=== PATIENT | male | born 1965 | race Two or more races ===

== ENCOUNTER 2023-07-09 10:14 | Emergency (ER) | payer MEDICAID, SELFPAY ==
[2023-07-09 10:20] VITALS: BP 137/72; PULSE 71; RESP 16; TEMP 36.8; O2SAT 98
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
[2023-07-09] MEDS: Ketorolac Tromethamine 15 MG/ML VIAL IM (11:32)
== END 2023-07-09 11:35 | disposition home or self-care (01) ==
PROVIDERS: Emergency Provider Emergency Medicine; PCP Physician Assistant
DX: R10.31 Right lower quadrant pain (principal); M79.602 Pain in left arm
CPT/HCPCS: 96372; 99283; 99284; J1885

== ENCOUNTER 2023-07-23 10:52 | Emergency (ER) | payer MEDICAID, SELFPAY ==
--- NOTE | ~2023-07-23 | CT_ITS ---
EXAMINATION: CT ABDOMEN AND PELVIS WITHOUT CONTRAST CLINICAL INFORMATION: Right-sided abdominal pain. COMPARISON: None available. TECHNIQUE: Multidetector volumetric imaging was performed from the superior aspect of the liver through the pubic symphysis. Sagittal and coronal reformatted images were obtained on the technologist's workstation. This CT examination was performed using dose optimization techniques as appropriate, variously including the following: *Automated exposure control *Adjustment of mA and/or kV according to patient size (this includes techniques or standardized protocols for targeted exams where dose is matched to indication/reason for exam; i.e. extremities or head) *Use of iterative reconstruction technique DLP: 237 mGy-cm FINDINGS: LUNG BASES: There is minimal dependent bibasilar atelectasis. Heart size is normal. LIVER, GALLBLADDER, AND BILIARY TREE: The liver is normal in size, shape, and attenuation. No focal hepatic lesion or biliary ductal dilatation is present. The gallbladder is unremarkable with no evidence of radiopaque gallstones, gallbladder wall thickening, or obvious pericholecystic inflammatory changes. PANCREAS: Unremarkable. SPLEEN: Unremarkable. ADRENAL GLANDS: Unremarkable. KIDNEYS AND URETERS: The kidneys are normal in size, shape, and attenuation. No hydronephrosis, hydroureter, or calculi seen. No perinephric stranding. BLADDER: Unremarkable. GASTROINTESTINAL TRACT: There is moderate scattered stool and gas seen throughout the colon without distention. The small bowel loops are normal caliber. Appendix is not visualized. There is no free air or free fluid. ABDOMINAL WALL: No significant hernia is appreciated. LYMPH NODES: Normal. VASCULAR: Unremarkable. PELVIC VISCERA: There is a small TURP defect in the prostate gland. OSSEOUS STRUCTURES: No aggressive lytic or sclerotic process seen. There is mild degenerative disc changes L4-L5 disc level. CT/CT abdomen pelvis wo IV con IMPRESSION: Significant constipation without obstruction. Appendix not seen. No inflammatory process seen in the right lower quadrant. No radiopaque urolith or hydroureteronephrosis. Fleischner guidelines were followed.
[2023-07-23 11:12] VITALS: BP 102/62; PULSE 63; RESP 18; TEMP 37.1; O2SAT 98
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
[2023-07-23 13:57] VITALS: BP 130/71; PULSE 58; RESP 16; TEMP 36.9; O2SAT 99
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
--- NOTE | 2023-07-23 14:58 | PC.NURSE ---
22g IV placed in the left hand w/o difficulty. pt awaiting CT at this time. respirations even and unlabored. call rockwell placed within reach.
--- NOTE | 2023-07-23 15:37 | PC.NURSE ---
CT went to pt room to get imaging completed - CT flushed IV w/ saline - pt stated that IV access was painful. no complications noted around site at this time. pt now currently agitated/yelling at this RN stating d/t being stuck/trying to obtain IV access.
--- NOTE | 2023-07-23 15:45 | PC.NURSE ---
provider aware that pt c/o painful IV ite at this time. provider will put in order for CT w/o contrast. pt aware of plan of care at this time.
== END 2023-07-23 16:56 | disposition home or self-care (01) ==
PROVIDERS: Emergency Provider Emergency Medicine; PCP Physician Assistant
DX: K59.00 Constipation, unspecified (principal); R10.31 Right lower quadrant pain; Z79.899 Other long term (current) drug therapy
CPT/HCPCS: 36415; 74176; 80048; 80076; 83690; 85025; 99284

== ENCOUNTER 2023-12-01 08:57 | Outpatient (REF) | payer MEDICAID, SELFPAY ==
[2023-12-01 10:58] LABS: Alanine Aminotransferase 56 U/L (0-40); Albumin Level 4.5 g/dL (3.5-5.0); Aspartate Amino Transferase 48 U/L (5-37); Bilirubin Total 0.5 mg/dL (0.0-1.0)
[2023-12-02 03:32] LABS: HBS Num1 0.17 mIU/mL (0-7.99); HBc Num1 1.07 S/CO (0.00-0.79); HBsAGNum1 0.53 S/CO (0.00-0.99); HIV AB/AG Nonreactive (Nonreactive); HIV Num 1 0.08 S/CO (0.00-0.99); Hepatitis B Surface Antigen Negative (Negative); ~HepC Num1 12.48 S/CO (0.00-0.79); ~Hepatitis B Surface Antibody NONREACTIVE (Nonreactive); ~Hepatitis C Antibody Reactive (Nonreactive)
[2023-12-02 04:20] LABS: HBc Num2 1.32 S/CO; HBc Num3 0.97 S/CO; Hepatitis B Core Antibody Reactive (Nonreactive)
[2023-12-03 19:23] LABS: Hepatitis B Core Antibody IgM NON-REACTIVE (NON-REACTIVE)
[2023-12-04 07:14] LABS: HCV RNA PCR Qn 177000 IU/mL (NOT DETECTED); HCV RNA PCR Qn 5.25 Log IU/mL (NOT DETECTED)
[2023-12-10 09:43] LABS: HCV Genotype LiPA 3
== END 2023-12-01 08:58 | disposition home or self-care (01) ==
LOC: HO.LAB 08:57
PROVIDERS: Visit Provider Internal Medicine Infectious Disease
DX: B18.2 Chronic viral hepatitis C (principal)
CPT/HCPCS: 36415; 82040; 82247; 84450; 84460; 86704; 86705; 86706; 86803; 87340; 87389; 87522; 87902

== ENCOUNTER 2024-02-25 13:44 | Inpatient (IN) | payer MEDICAID, SELFPAY ==
--- NOTE | ~2024-02-25 | XR_ITS ---
Examination: XR forearm RT 2V, XR hand RT min 3V Indication: pain Comparison: No pertinent prior studies are currently available for comparison. Technique: 2 views of the right forearm and 3 views of the right hand obtained Findings: Bones are normal anatomic alignment with no acute appearing fracture or dislocation. Old healed fracture of the distal ulna is noted. There is a tiny metallic foreign body in the soft tissues at this level. Additional small metallic needle fragments is seen in the soft tissues in the antecubital fossa region. No acute fracture or dislocation within the hand. There is diffuse soft tissue swelling along the dorsal aspect of the hand but underlying bony structures are grossly unremarkable. No radiopaque foreign body in the hand. XR/XR hand RT min 3V Impression: Soft tissue swelling along the dorsal aspect of the hand but no acute underlying fracture or dislocation. Old healed fracture of the distal ulna. Likely chronic foreign bodies seen
--- NOTE | ~2024-02-25 | XR_ITS ---
Examination: XR forearm RT 2V, XR hand RT min 3V Indication: pain Comparison: No pertinent prior studies are currently available for comparison. Technique: 2 views of the right forearm and 3 views of the right hand obtained Findings: Bones are normal anatomic alignment with no acute appearing fracture or dislocation. Old healed fracture of the distal ulna is noted. There is a tiny metallic foreign body in the soft tissues at this level. Additional small metallic needle fragments is seen in the soft tissues in the antecubital fossa region. No acute fracture or dislocation within the hand. There is diffuse soft tissue swelling along the dorsal aspect of the hand but underlying bony structures are grossly unremarkable. No radiopaque foreign body in the hand. XR/XR forearm RT 2V Impression: Soft tissue swelling along the dorsal aspect of the hand but no acute underlying fracture or dislocation. Old healed fracture of the distal ulna. Likely chronic foreign bodies seen
--- NOTE | 2024-02-25 13:57 | ED_ITS ---
HPI - General Adult General Chief complaint: Wound/Laceration Stated complaint: RT HAND ABSCESS X 1 MONTH, ON ABX PER EMS Time Seen by Provider: 02/25/24 13:56 History of Present Illness HPI narrative: This is a 58-year-old man with a past medical history of hypertension, polysubstance abuse (marijuane, injects cocaine), bipolar disorder who is brought in via EMS as a transfer from [facility] for evaluation right hand abscess. EMS states that patient has been admitted to the [facility] since February 18, 2024. EMS states that the patient has been calm and cooperative during the transfer. EMS states that patient is taking oral antibiotics for a right hand abscess, but states that his symptoms are not improving. EMS reports that patient expressed pus and blood from his abscess today and for this reason presents for evaluation. He states this swelling on his hand has been there for several weeks. He states no recent injection drug use. He states no fevers or chills. He states taking antibiotics by mouth at this time. He states no pain unless he presses on the area of swelling. He states pressing on it today and expressing pus . He states no paresthesias. He states no pain in his wrist, forearm or arm otherwise. He states no chest pain or dyspnea. He states no back pain or abdominal pain. Related Data Previous Rx's ?Medication ?Instructions ?Recorded polyethylene glycol 3350 17 17 g PO DAILY 7 days #119 grams 07/23/23 gram/dose oral powder (Miralax) Allergies Allergy/AdvReac Type Severity Reaction Status Date / Time lactose [LACTOSE] AdvReac Intermediate STOMACH Verified 02/25/24 14:02 UPSET Review of Systems 2 Review of Systems: ROS as per HPI PMFSH Past Medical History Medical History (Updated 02/25/24 @ 17:12 by Bhavya Razo MD) Hepatitis C Polysubstance abuse Opioid use disorder Bipolar disease, chronic PVD (peripheral vascular disease) HTN (hypertension) Injection of illicit drug within last 12 months PTSD (post-traumatic stress disorder) Social History Social History Substance Use Type: Marijuana Advance Directives: No Advance Directives Information Provided: No Physical Exam ED Vital Signs: Vital Signs - 24 hr 02/25/24 14:00 Temperature 98 F Pulse Rate 80 Respiratory Rate 19 Blood Pressure 119/80 Pulse Oximetry 98 Oxygen Delivery Method Room Air BMI result Body Mass Index 20.0 Gen: NAD, AOx3 HEENT: NCAT, EOMI, normal conjunctiva CV: RRR, 2+ bilateral radial pulses Pulm: CTAB, no increased work of breathing GI: Soft, NTND, no rebound, guarding or rigidity MSK: Bilateral upper extremity compartments are soft, scar tissue to anterior right forearm without associated erythema, purulence, fluctuance or induration, approximate 2 cm circular fluctuance with punctate red blood with associated mild erythema and without purulent drainage, no edema to the right hand digits, intact motor function to right upper extremity median/ulnar/radial/anterior interosseous nerves Neuro: Grossly non focal, sensation intact to bilateral upper extremity dermatomes and C6-C8 Medications Administered Discontinued Medications Generic Name Dose Route Start Last Admin Trade Name Freq PRN Reason Stop Dose Admin Clonazepam 0.5 mg 02/25/24 16:39 02/25/24 17:09 Clonazepam 0.5 Mg Tablet PO 02/25/24 16:40 0.5 mg ONCE ONE Administration Lactated Ringer's 1,000 mls @ 999 mls/hr 02/25/24 15:11 02/25/24 16:31 Lr IV 02/25/24 16:11 999 mls/hr .Q1H1M ONE Administration Cefazolin Sodium/Dextrose 2 gm in 50 mls @ 100 mls/hr 02/25/24 15:11 02/25/24 16:31 Ancef IV 02/25/24 15:40 100 mls/hr ONCE ONE Administration Doxycycline Hyclate 100 mg/ 250 mls @ 166.67 mls/hr 02/25/24 15:11 02/25/24 17:10 Sodium Chloride IV 02/25/24 16:40 166.67 mls/hr ONCE ONE Administration Lidocaine HCl 20 ml 02/25/24 15:54 02/25/24 17:22 Lidocaine Hcl 1 % 20 Ml Vial SUBCUT 02/25/24 15:55 20 ml ONCE ONE Administration Quetiapine Fumarate 25 mg 02/25/24 16:39 02/25/24 17:09 Quetiapine Fumarate 25 Mg Tablet PO 02/25/24 16:40 25 mg ONCE ONE Administration Procedures Abscess I/D Site: hand (posterior aspect) Side (if applicable): right Local Anesthetic: lidocaine 1% Amount of anesthesia used (mL): 2 Technique: incised with blade Amount of fluid expressed (mL): 2 Sent for culture/gram staining?: No Irrigation: Yes Packing used?: none Medical Decision Making Medical Decision Making [facility] Narrative: Differential diagnosis includes, but is not limited to abscess, foreign body, cellulitis. Considered paronychia, felon and flexor tendon synovitis, but there are no exam findings to suggest these etiologies and and so I do not suspect these pathologies. Patient is afebrile and hemodynamically stable on room air. Exam as above demonstrates findings concerning for abscess with mild superimposed cellulitis localized to area of abscess without streaking. The affected right upper extremity is neurovascularly intact. Labs notable for baseline anemia with hemoglobin 12.0 (previous 12.0 July 23, 2023), hyperkalemia with potassium of 5.2, elevated BUN 32 and creatinine 1.24 (previous 0.85). EKG shows sinus rhythm at 76 beats per minute, normal axis, normal intervals, CO 98, QRS 82, QTC 409 (when compared to previous EKG November 11, 2008 heart rate is decreased and there are no diagnostic ischemic changes). There are no electrocardiographic findings of hyperkalemia. Patient undergoes incision and drainage (see procedure note above for details) with minimal bloody drainage. This is dressed with nonadherent dressing and Kerlix. Given elevated BUN and creatinine increased greater than 0.3 when compared to previous I suspect prerenal acute kidney injury for which patient is provided 1 L IV LR. Patient is provided doxycycline and cefazolin for cellulitis not responding to p.o. antibiotics. I discussed case, management and diagnostic findings with Orthopedic surgery, Yarelis Topete, who recommends incision and drainage, admission to medicine and IV antibiotics. Patient is provided his home medications of clonazepam and Seroquel as per review of the external record from [facility]. I discussed case and management with hospitalist Dr. Andres. Patient is admitted to the hospitalist Dr. Andres with orthopedic surgery consulting. Admission/Observation Consideration of admission/observation: Escalation of care including admission/observation considered Consult Healthcare Provider Management of the patient was discussed with: Hospitalist and [employer] Lab Data 02/25/24 14:30 02/25/24 14:30 Labs: Lab Results 02/25/24 Range/Units 14:30 WBC 10.6 (4.8-10.8) X10*3/uL RBC 3.82 L (4.60-5.80) X10*6/uL Hgb 12.0 L (14.0-18.0) g/dl Hct 34.9 L (42.0-52.0) % MCV 91.4 (80.0-98.0) fL MCH 31.4 (27.0-33.0) pg MCHC 34.4 (31.0-36.0) g/dl RDW 14.2 (11.0-16.0) % Plt Count 257 (160-400) X10*3/uL MPV 10.4 (9.4-12.4) fL Immature Gran % (Auto) 0.3 (0.0-0.4) % Neut % (Auto) 70.9 (45-73) % Lymph % (Auto) 15.5 L (20-40) % Wheeler % (Auto) 11.5 H (2-11) % Eos % (Auto) 1.3 (0-4) % Baso % (Auto) 0.5 (0-2) % Lymph # (Auto) 1.6 (1.2-4.9) X10*3/uL Wheeler # (Auto) 1.2 (0.1-1.2) X10*3/uL Eos # (Auto) 0.1 (0.0-0.4) X10*3/uL Baso # (Auto) 0.1 (0.0-0.2) X10*3/uL Abs Immat Gran (auto) 0.03 (0.00-0.03) X10*3/uL Absolute Neuts (auto) 7.5 (2.0-8.3) x10*3/uL Absolute Nucleated RBC 0.000 (0.0-0.012) X10*3/uL Nucleated RBC % (auto) 0.0 (0.0-0.2) /100WBC Sodium 134 L (135-145) mmol/L Potassium 5.2 H (3.3-5.1) mmol/L Chloride 100 (96-108) mmol/L Carbon Dioxide 27 (22-29) mmol/L Anion Gap 12 (12-20) BUN 32 H (9-16) mg/dL Creatinine 1.24 (0.5-1.4) mg/dL Estim Creat Clear Calc 52.9 Estimated GFR > 60 Random Glucose 85 (60-115) mg/dL Calcium 9.1 (8.4-10.2) mg/dL Blood Type O Positive Antibody Screen NEGATIVE Radiology Impression Discussion of test interpretation with radiology: I have reviewed the radiologist's reading. Radiologist Impression: XR/XR forearm RT 2V Impression: Soft tissue swelling along the dorsal aspect of the hand but no acute underlying fracture or dislocation. Old healed fracture of the distal ulna. Likely chronic foreign bodies seen Dictated By: Jose Dubose MD Signed By: <Electronically signed by Jose Dubose MD in OV> 02/25/24 2278 XR/XR hand RT min 3V Impression: Soft tissue swelling along the dorsal aspect of the hand but no acute underlying fracture or dislocation. Old healed fracture of the distal ulna. Likely chronic foreign bodies seen Dictated By: Jose Dubose MD Signed By: <Electronically signed by Jose Dubose MD in OV> 02/25/24 0681 Discharge Plan Discharge Clinical Impression: Abscess Patient Disposition: Admitted As Inpatient
[2024-02-25 14:00] VITALS: BP 119/80; PULSE 80; RESP 19; TEMP 36.6; O2SAT 98
[2024-02-25 14:35] LABS: MANUAL DIFF FLAG NO
[2024-02-25 14:36] LABS: Basophils Absolute Auto 0.1 X10*3/uL (0.0-0.2); Basophils Percent Auto 0.5 % (0-2); Eosinophils Absolute Auto 0.1 X10*3/uL (0.0-0.4); Eosinophils Percent Auto 1.3 % (0-4); Hematocrit 34.9 % (42.0-52.0); Imm Gran Abs Auto 0.03 X10*3/uL (0.00-0.03); Imm Gran Pct Auto 0.3 % (0.0-0.4); Lymphocytes Absolute Auto 1.6 X10*3/uL (1.2-4.9); Lymphocytes Percent Auto 15.5 % (20-40); Mean Corpuscular HGB Conc 34.4 g/dl (31.0-36.0); Mean Corpuscular Hemoglobin 31.4 pg (27.0-33.0); Mean Corpuscular Volume 91.4 fL (80.0-98.0); Mean Platelet Volume 10.4 fL (9.4-12.4); Monocytes Absolute Auto 1.2 X10*3/uL (0.1-1.2); Monocytes Percent Auto 11.5 % (2-11); Neutrophils Absolute Auto 7.5 x10*3/uL (2.0-8.3); Neutrophils Percent Auto 70.9 % (45-73); Platelet Count 257 X10*3/uL (160-400); Red Blood Count 3.82 X10*6/uL (4.60-5.80); Red Cell Distribution Width 14.2 % (11.0-16.0); White Blood Count 10.6 X10*3/uL (4.8-10.8)
[2024-02-25 14:50] LABS: Anion Gap 12 (12-20); Blood Urea Nitrogen 32 mg/dL (9-16); Calcium 9.1 mg/dL (8.4-10.2); Carbon Dioxide 27 mmol/L (22-29); Chloride 100 mmol/L (96-108); Creatinine Clr Calc Pharmacy 52.9; Estimated Glomerular Filt Rate > 60; Glucose Random 85 mg/dL (60-115); Potassium 5.2 mmol/L (3.3-5.1); Sodium 134 mmol/L (135-145)
--- NOTE | 2024-02-25 15:11 | ECG_ITS ---
Test Reason : HYPERKALEMIA Blood Pressure : / mmHG Vent. Rate : 000 BPM Atrial Rate : 000 BPM P-R Int : 000 ms QRS Dur : 000 ms QT Int : 000 ms P-R-T Axes : 000 000 000 degrees QTc Int : 000 ms No QRS complexes found, no ECG analysis possible When compared with ECG of 11-NOV-2008 07:29, Current undetermined rhythm precludes rhythm comparison, needs review Referred By: Dimitrios Carranza Electronically Signed By:
--- NOTE | 2024-02-25 16:30 | PC.NURSE ---
pt denies si at this time sitter remains in place
[2024-02-25] MEDS: ceFAZolin Sodium/Dextrose,Iso 2 GM/50 ML PIGGYBACK IV (16:31)
[2024-02-25] MEDS: Lactated Ringers 1,000 ML 999 ML IV (16:31)
--- NOTE | 2024-02-25 17:00 | PC.NURSE ---
this rn assumed care of pt @ 1500 pt medicated according to may pt changed over per full charge bookkeeper belongings in pod
--- NOTE | 2024-02-25 17:02 | P.HPHOSP_ITS ---
History of Present Illness Date of Service: 02/25/24 Chief Complaint: abscess R hand 58yo M with hx IDU, HTN, PVD, PTSD, HCV, and bipolar disorder who was sent in from [facility], where he was admitted on 02/18/24. Prior to that, he injected drugs into the dorsum of his right hand and subsequently developed an abscess. Due to failure to improve on oral antibiotics, he was sent in. He started expressing pus and blood from the abscess today. He denies fever, chills, or any systemic symptoms. He endorses pain only with pressing on the abscess. No numbness or tingling of the fingers and no weakness of the hand. No history of bloodstream infection or endocarditis. Not diabetic. Psychiatrically, he denies depression or anxiety, hallucinations or delusions, or suicidal ideation; he states he was actually scheduled to be discharged tomorrow. He is on Suboxone for OUD. In the ED, he was given IV cefazolin and doxycycline. I+D expressed about 2 mL of fluid. WBC count was 10.6 and SCr 1.24 [baseline 0.85]. K 5.2. He was also give 1L of IV LR. Review of Systems 2 Review of Systems: Yes all other systems are reviewed and are negative [facility] Medical History (Updated 02/25/24 @ 17:12 by Bhavya aRzo MD) Hepatitis C Polysubstance abuse Opioid use disorder Bipolar disease, chronic PVD (peripheral vascular disease) HTN (hypertension) Injection of illicit drug within last 12 months PTSD (post-traumatic stress disorder) Social History Substance Use Type: Marijuana Advance Directives: No Advance Directives Information Provided: No Meds Allergies Allergy/AdvReac Type Severity Reaction Status Date / Time lactose [LACTOSE] AdvReac Intermediate STOMACH Verified 02/25/24 14:02 UPSET Active Medications: Current Medications Acetaminophen (Acetaminophen 325 Mg Tablet) 650 mg PO Q4H PRN PRN Reason: Pain, Mild (Pain Scale 1-3) Acetaminophen (Acetaminophen 325 Mg Tablet) 650 mg PO Q4H PRN PRN Reason: Fever Vancomycin HCl 1,500 mg/ (Sodium Chloride) 500 mls @ 333.333 mls/hr IV ONCE ONE Stop: 02/25/24 18:11 Morphine Sulfate (Morphine Sulfate 4 Mg/Ml Cartridge) 4 mg IM Q4H PRN; Protocol PRN Reason: Pain, Severe (Pain Scale 7-10) Oxycodone HCl (Oxycodone Hcl Immed Release 5 Mg Tablet) 10 mg PO Q6H PRN PRN Reason: Pain, Moderate(Pain Scale 4-6) Pharmacy Consult (Consult Rx Vancomycin Dosing) 1 each MISCELLANE DAILY PRN PRN Reason: Consult order Physical Exam 2 Vital Signs and Narrative: Vital Signs: Last Vital Signs Temp 98 F 02/25/24 14:00 Pulse 80 02/25/24 14:00 Resp 19 02/25/24 14:00 BP 119/80 02/25/24 14:00 Pulse Ox 98 02/25/24 14:00 O2 Del Method Room Air 02/25/24 14:00 BMI result Body Mass Index 20.0 Gen: in no acute distress HEENT: sclera anicteric, moist mucus membranes Neck: supple Lungs: clear to auscultation bilaterally Heart: regular rate and rhythm, no murmurs Abd: soft, non-tender, non-distended Ext: no edema Skin: warm/well-perfused, multiple scars on R forearm. 2-3 cm drained abscess with surrounding erythema s/p I+D on R hand dorsum Neuro: alert and oriented x3, neurovascularly intact distal to the abscess Psych: appropriate affect Results Labs 02/25/24 14:30 02/25/24 14:30 Labs: Laboratory Results - last 24 hr 02/25/24 14:30 MCV 91.4 MCH 31.4 MCHC 34.4 RDW 14.2 Plt Count 257 MPV 10.4 Immature Gran % (Auto) 0.3 Neut % (Auto) 70.9 Lymph % (Auto) 15.5 L Dawes % (Auto) 11.5 H Eos % (Auto) 1.3 Baso % (Auto) 0.5 Lymph # (Auto) 1.6 Dawes # (Auto) 1.2 Eos # (Auto) 0.1 Baso # (Auto) 0.1 Abs Immat Gran (auto) 0.03 Absolute Neuts (auto) 7.5 Absolute Nucleated RBC 0.000 Nucleated RBC % (auto) 0.0 Anion Gap 12 Estim Creat Clear Calc 52.9 Estimated GFR > 60 Random Glucose 85 Calcium 9.1 Blood Type O Positive Antibody Screen NEGATIVE Assessment and Plan (1) Abscess: Status: Acute Plan 58yo M with hx IDU, HTN, PVD, PTSD, HCV, and bipolar disorder sent in from [facility] due to nonresolving but spontaneously draining R hand abscess, I+D completed in the ED. purulent cellulitis of R hand due to IDU - admit to M/S, treat with IV vancomycin, follow blood cultures, consult Orthopedics - screen HBV/HCV [partially treated]/HIV DOMINGUEZ, mild - recheck BMP in am hyperK, mild - 1 dose SZC, recheck BMP in AM PVD - ASA HTN - antihypertensives pending medication reconciliation bipolar disorder PTSD OUD - resume medications from [facility]; Psychiatry consultation VTE ppx - LMWH dispo - eventually home code status - full I anticipate that the patient will stay at least 2 midnights as an inpatient in the hospital due to the above reasons. It is neither reasonable nor safe to care for them in a less acute setting. Quality Stroke Does the patient have a stroke diagnosis?: No VTE Prior VTE?: No VTE Risk Level:: Medical - moderate - high VTE Device Contraindication: N/A - Device Ordered VTE Drug Contraindication: N/A - Med Ordered
[2024-02-25] MEDS: clonazePAM 0.5 MG TABLET PO (17:09)
[2024-02-25] MEDS: QUEtiapine Fumarate 25 MG TABLET PO (17:09)
[2024-02-25] MEDS: Doxycycline Hyclate 100 MG in 0.9 % Sodium Chloride 250 ML 166.67 MG IV (17:10)
[2024-02-25] MEDS: Lidocaine HCl 1 % 20 ML VIAL SUBCUT (17:22)
[2024-02-25] MEDS: vancomycin HCL 1,500 MG in 0.9 % Sodium Chloride 500 ML 333.33 MG IV (19:17)
[2024-02-25] MEDS: Enoxaparin Sodium 40 MG/0.4 ML SYRINGE SUBCUT (19:18)
[2024-02-25] MEDS: Sodium Zirconium Cyclosilicate 5 GM POWD.PACK PO (19:18)
[2024-02-25 19:43] VITALS: BP 136/67; PULSE 80; RESP 16; TEMP 37.4; O2SAT 97
--- NOTE | 2024-02-25 22:00 | MHC.EDTECH ---
Pt belongings done in previous shift by tech and security per RN but belongings list not done. Pt clothing in [employer], this was confirmed by this tech. Pt signed belongings list.
[2024-02-25] MEDS: OLANZapine 10 MG TABLET PO (22:51)
[2024-02-25] MEDS: Gabapentin 300 MG CAPSULE PO (22:51)
[2024-02-25] MEDS: Tamsulosin HCL 0.4 MG CAPSULE PO (22:52)
[2024-02-25] MEDS: QUEtiapine Fumarate 300 MG TABLET PO (22:52)
--- NOTE | 2024-02-25 23:25 | PC.NURSE ---
this rn assumed care of pt, pt sitting in stretcher in [place], pt requesting food and to have the light shut off. pt given sandwich and this rn gave pt towel to cover eyes. sitter in place for safety.
[2024-02-26 02:35] VITALS: BP 120/60; PULSE 71; RESP 16; TEMP 36.4; O2SAT 97
--- NOTE | 2024-02-26 04:47 | PC.NURSE ---
pt resting in stretcher in [place], eyes closed, respirations even and unlabored. no acute distress noted, 1:1 sitter at bedside.
[2024-02-26 06:07] VITALS: BP 123/74; PULSE 78; RESP 16; TEMP 36.6; O2SAT 96
--- NOTE | 2024-02-26 06:23 | PC.NURSE ---
pt iv access noted to be removed, new access established, 20G left back forearm.
[2024-02-26 06:31] LABS: Hematocrit 39.1 % (42.0-52.0); Hemoglobin 13.3 g/dl (14.0-18.0); Mean Corpuscular Hemoglobin 31.1 pg (27.0-33.0); Mean Corpuscular Volume 91.4 fL (80.0-98.0); Mean Platelet Volume 10.6 fL (9.4-12.4); Platelet Count 252 X10*3/uL (160-400); Red Blood Count 4.28 X10*6/uL (4.60-5.80); Red Cell Distribution Width 14.2 % (11.0-16.0)
--- NOTE | 2024-02-26 06:54 | PC.NURSE ---
pt admits to and from coming from [facility]. narciso present.
--- NOTE | 2024-02-26 07:24 | PHA.MEDREC ---
Pharmacy Consult ? Medication Reconciliation Pharmacy has completed the medication reconciliation.
[2024-02-26 07:36] VITALS: BP 156/86; PULSE 97; RESP 20; O2SAT 100
[2024-02-26] MEDS: clonazePAM 0.5 MG TABLET PO ×2 (08:43→15:43)
[2024-02-26] MEDS: QUEtiapine Fumarate 25 MG TABLET PO ×3 (08:43→21:06)
[2024-02-26] MEDS: 0.9 % Sodium Chloride Flush 3 ML SYRINGE IVFLUSH ×3 (08:43→21:07)
[2024-02-26] MEDS: Aspirin Enteric Coated 81 MG TABLET.DR PO (08:43)
[2024-02-26] MEDS: vancomycin HCL 750 MG in 0.9 % Sodium Chloride 250 ML 265 MG IV ×2 (08:43→21:06)
[2024-02-26] MEDS: Buprenorphine/Naloxone 8/2 mg FILM 2 FILM SUBLINGUAL (08:44)
--- NOTE | 2024-02-26 08:51 | PC.NURSE ---
pt pacing in the halls, irritable that his bed is in a [place] way and he is being treated like an animal . all pts requests fulfilled at this time. pt medicated per DEC, made aware of PRN Atarax. ORtho at bedside to evaluate pts hand.
--- NOTE | 2024-02-26 09:16 | P.CONOP_ITS ---
History of Present Illness HPI Consult date: 02/26/24 Chief complaint: purulent cellulitis r hand Narrative: This is a 58-year-old man with a past medical history of hypertension, polysubstance abuse (marijuane, injects cocaine), bipolar disorder who is brought in via EMS as a transfer from [facility] for evaluation right hand abscess. EMS states that patient has been admitted to the [facility] since February 18, 2024. EMS states that patient is taking oral antibiotics for a right hand abscess, but states that his symptoms are not improving. EMS reports that patient expressed pus and blood from his abscess today and for this reason presents for evaluation. He states this swelling on his hand has been there for several weeks. He states no recent injection drug use. He states no fevers or chills. He states taking antibiotics by mouth at this time. He states no pain unless he presses on the area of swelling. He states pressing on it today and expressing pus . He states no paresthesias. He states no pain in his wrist, forearm or arm otherwise. He states no chest pain or dyspnea. He states no back pain or abdominal pain. He was admitted to the medical service and orthopedics was consulted for recommendations. Review of Systems 2 Review of Systems: Yes all other systems are reviewed and are negative PMFSH Past Medical History Medical History (Updated 02/25/24 @ 17:12 by Bhavya Razo MD) Hepatitis C Polysubstance abuse Opioid use disorder Bipolar disease, chronic PVD (peripheral vascular disease) HTN (hypertension) Injection of illicit drug within last 12 months PTSD (post-traumatic stress disorder) Social History Social History Household Members: Spouse Housing: Apartment Do you presently have visiting nurse or other home services: No Patient Tobacco Use Status: Never used Tobacco Substance Use Type: Marijuana service: No Meds Allergies Allergy/AdvReac Type Severity Reaction Status Date / Time No Known Allergies Allergy Verified 02/27/24 08:11 Active Medications: Current Medications Acetaminophen (Acetaminophen 325 Mg Tablet) 650 mg PO Q4H PRN PRN Reason: Pain, Mild (Pain Scale 1-3) Acetaminophen (Acetaminophen 325 Mg Tablet) 650 mg PO Q4H PRN PRN Reason: Fever Aspirin (Aspirin Enteric Coated 81 Mg Tablet.) 81 mg PO DAILY [facility] Last Admin: 05/16/24 08:43 Dose: 81 mg Buprenorphine/Naloxone (Buprenorphine/Naloxone 8/2 Mg Film) 2 film SUBLINGUAL DAILY [facility] Last Admin: 02/26/24 08:44 Dose: 2 film Calcium Carbonate (Calcium Carbonate 750 Mg Tab.Chew) 750 mg PO Q6H PRN PRN Reason: Heartburn Clonazepam (Clonazepam 0.5 Mg Tablet) 0.5 mg PO BID PRN PRN Reason: Anxiety Last Admin: 02/26/24 08:43 Dose: 0.5 mg Enoxaparin Sodium (Enoxaparin Sodium 40 Mg/0.4 Ml Syringe) 40 mg SUBCUT Q24H [facility] Last Admin: 02/25/24 19:18 Dose: 40 mg Gabapentin (Gabapentin 300 Mg Capsule) 300 mg PO BEDTIME [facility] Last Admin: 02/25/24 22:51 Dose: 300 mg Hydroxyzine HCl (Hydroxyzine Hcl 25 Mg Tablet) 25 mg PO TID PRN PRN Reason: Anxiety Vancomycin HCl 750 mg/ Sodium (Chloride) 265 mls @ 265 mls/hr IV Q12H [facility] Last Admin: 02/26/24 08:43 Dose: 265 mls/hr Magnesium Hydroxide (Milk Of Magnesia 30 Ml Oral.Susp) 30 ml PO DAILY PRN PRN Reason: Constipation Melatonin (Melatonin 3 Mg Tablet) 6 mg PO BEDTIME PRN PRN Reason: Insomnia Morphine Sulfate (Morphine Sulfate 4 Mg/Ml Cartridge) 4 mg IM Q4H PRN; Protocol PRN Reason: Pain, Severe (Pain Scale 7-10) Olanzapine (Olanzapine 10 Mg Tablet) 10 mg PO BEDTIME [facility] Last Admin: 02/25/24 22:51 Dose: 10 mg Oxycodone HCl (Oxycodone Hcl Immed Release 5 Mg Tablet) 10 mg PO Q6H PRN PRN Reason: Pain, Moderate(Pain Scale 4-6) Pharmacy Consult (Consult Rx Vancomycin Dosing) 1 each MISCELLANE DAILY PRN PRN Reason: Consult order Polyethylene Glycol (Polyethylene Glycol 3350 17 Gm Powd.Pack) 17 gm PO DAILY PRN PRN Reason: Constipation Quetiapine Fumarate (Quetiapine Fumarate 25 Mg Tablet) 25 mg PO TID [facility] Last Admin: 02/26/24 08:43 Dose: 25 mg Quetiapine Fumarate (Quetiapine Fumarate 300 Mg Tablet) 300 mg PO BEDTIME [facility] Last Admin: 02/25/24 22:52 Dose: 300 mg Senna/Docusate Sodium (Sennosides/Docusate Sodium Tablet) 2 tab PO BID PRN PRN Reason: constipation Sodium Chloride (0.9 % Sodium Chloride Flush 3 Ml Syringe) 3 ml IVFLUSH QSHIFT [facility] Last Admin: 02/26/24 08:43 Dose: 3 ml Tamsulosin HCl (Tamsulosin Hcl 0.4 Mg Capsule) 0.4 mg PO BEDTIME [facility] Last Admin: 02/25/24 22:52 Dose: 0.4 mg Home Medications ?Medication ?Instructions ?Recorded ?Confirmed ?Last Taken ?Type albuterol sulfate 90 mcg/actuation 2 puff inhalation Q4H PRN 02/25/24 02/25/24 Unknown History aerosol inhaler (ProAir HFA) Shortness Of Breath aspirin 81 mg tablet,delayed 81 mg PO DAILY 02/25/24 02/25/24 Unknown History release buprenorphine 8 mg-naloxone 2 mg 2 film sublingual DAILY 02/25/24 02/25/24 Unknown History sublingual film (Suboxone) clonazepam 0.5 mg tablet 0.5 mg PO BID PRN Anxiety 02/25/24 02/25/24 Unknown History gabapentin 300 mg capsule 300 mg PO BEDTIME 02/25/24 02/25/24 Unknown History hydroxyzine pamoate 25 mg capsule 25 mg PO TID PRN Anxiety 02/25/24 02/25/24 Unknown History lisinopril 10 mg tablet 10 mg PO DAILY 02/25/24 02/25/24 Unknown History olanzapine 10 mg tablet 10 mg PO BEDTIME 02/25/24 02/25/24 Unknown History quetiapine 25 mg tablet 25 mg PO TID 02/25/24 02/25/24 Unknown History quetiapine 300 mg tablet 300 mg PO BEDTIME 02/25/24 02/25/24 Unknown History tamsulosin 0.4 mg capsule (Flomax) 0.4 mg PO BEDTIME 02/25/24 02/25/24 Unknown History Physical Exam 2 Vital Signs: Vital Signs: Last Vital Signs Temp 97.8 F 02/26/24 06:07 Pulse 97 02/26/24 07:36 Resp 20 02/26/24 07:36 BP 156/86 H 02/26/24 07:36 Pulse Ox 100 02/26/24 07:36 O2 Del Method Room Air 02/26/24 07:36 BMI result Body Mass Index 20.0 Const: General: cooperative, healthy appearing, comfortable and no acute distress Extrem: Other: Right hand abscess obver the dorsal aspect of the hand in line with the 2,3rd metacarpals. No active drainage. No Flatulence, No significant erythema. No tenderness to palpation. No pain with axial loading of the MCPS or wrist joint. He can make a closed fist and extends all digits. No pain along the flexor tendons, web spaces or thenar eminence. NVI. Results Labs 02/26/24 06:20 02/27/24 05:01 Labs: Abnormal lab results 02/25/24 02/26/24 Range/Units 14:30 06:20 RBC 3.82 L 4.28 L (4.60-5.80) X10*6/uL Hgb 12.0 L 13.3 L (14.0-18.0) g/dl Hct 34.9 L 39.1 L (42.0-52.0) % Lymph % (Auto) 15.5 L (20-40) % Zavala % (Auto) 11.5 H (2-11) % Sodium 134 L (135-145) mmol/L Potassium 5.2 H (3.3-5.1) mmol/L BUN 32 H (9-16) mg/dL H & H 02/25/24 02/26/24 Range/Units 14:30 06:20 Hgb 12.0 L 13.3 L (14.0-18.0) g/dl Hct 34.9 L 39.1 L (42.0-52.0) % All other labs normal. Diagnostic results Wrist/Hand x-ray: image reviewed (XR forearm RT 2V Impression: Soft tissue swelling along the dorsal aspect of the hand but no acute underlying fracture or dislocation. Old healed fracture of the distal ulna. Likely chronic foreign bodies seen) Assessment and Plan (1) Abscess: Status: Acute Plan cont iv abx continue dressing changes perform warm compress no surgical intervention Procedures Date of Service Date of Service: 02/27/24
--- NOTE | 2024-02-26 11:02 | P.PNIM_ITS ---
Subjective Subjective Date of Service: 02/26/24 Interval History: very anxious + irritable re: boarding in ED hallway no fever hand draining sponanteously Review of Systems Review of Systems: Yes all other systems are reviewed and are negative Physical Exam 2 Vital Signs: Vital Signs: Last Vital Signs Temp 97.8 F 02/26/24 06:07 Pulse 97 02/26/24 07:36 Resp 20 02/26/24 07:36 BP 156/86 H 02/26/24 07:36 Pulse Ox 100 02/26/24 07:36 O2 Del Method Room Air 02/26/24 07:36 BMI result Body Mass Index 20.0 Gen: in no acute distress HEENT: sclera anicteric, moist mucus membranes Neck: supple Lungs: clear to auscultation bilaterally Heart: regular rate and rhythm, no murmurs Abd: soft, non-tender, non-distended Ext: no edema Skin: warm/well-perfused, multiple scars on R forearm. 2-3 cm drained abscess with erythema s/p I+D on R hand dorsum Neuro: alert and oriented x3, neurovascularly intact distal to the abscess Psych: appropriate affect Objective Data Active Medications Acetaminophen (Acetaminophen 325 Mg Tablet) 650 mg PO Q4H PRN PRN Reason: Pain, Mild (Pain Scale 1-3) Acetaminophen (Acetaminophen 325 Mg Tablet) 650 mg PO Q4H PRN PRN Reason: Fever Aspirin (Aspirin Enteric Coated 81 Mg Tablet.) 81 mg PO DAILY [facility] Last Admin: 02/26/24 08:43 Dose: 81 mg Documented By: EVELIN Buprenorphine/Naloxone (Buprenorphine/Naloxone 8/2 Mg Film) 2 film SUBLINGUAL DAILY [facility] Last Admin: 02/26/24 08:44 Dose: 2 film Documented By: EVELIN Calcium Carbonate (Calcium Carbonate 750 Mg Tab.Chew) 750 mg PO Q6H PRN PRN Reason: Heartburn Clonazepam (Clonazepam 0.5 Mg Tablet) 0.5 mg PO BID PRN PRN Reason: Anxiety Last Admin: 02/26/24 08:43 Dose: 0.5 mg Documented By: EVELIN Enoxaparin Sodium (Enoxaparin Sodium 40 Mg/0.4 Ml Syringe) 40 mg SUBCUT Q24H [facility] Last Admin: 02/25/24 19:18 Dose: 40 mg Documented By: ROSE Gabapentin (Gabapentin 300 Mg Capsule) 300 mg PO BEDTIME [facility] Last Admin: 02/25/24 22:51 Dose: 300 mg Documented By: ROSE Hydroxyzine HCl (Hydroxyzine Hcl 25 Mg Tablet) 25 mg PO TID PRN PRN Reason: Anxiety Vancomycin HCl 750 mg/ Sodium (Chloride) 265 mls @ 265 mls/hr IV Q12H [facility] Last Infusion: 02/26/24 09:48 Dose: Infused Documented By: EVELIN Magnesium Hydroxide (Milk Of Magnesia 30 Ml Oral.Susp) 30 ml PO DAILY PRN PRN Reason: Constipation Melatonin (Melatonin 3 Mg Tablet) 6 mg PO BEDTIME PRN PRN Reason: Insomnia Morphine Sulfate (Morphine Sulfate 4 Mg/Ml Cartridge) 4 mg IM Q4H PRN; Protocol PRN Reason: Pain, Severe (Pain Scale 7-10) Olanzapine (Olanzapine 10 Mg Tablet) 10 mg PO BEDTIME [facility] Last Admin: 02/25/24 22:51 Dose: 10 mg Documented By: ROSE Oxycodone HCl (Oxycodone Hcl Immed Release 5 Mg Tablet) 10 mg PO Q6H PRN PRN Reason: Pain, Moderate(Pain Scale 4-6) Pharmacy Consult (Consult Rx Vancomycin Dosing) 1 each MISCELLANE DAILY PRN PRN Reason: Consult order Polyethylene Glycol (Polyethylene Glycol 3350 17 Gm Powd.Pack) 17 gm PO DAILY PRN PRN Reason: Constipation Quetiapine Fumarate (Quetiapine Fumarate 25 Mg Tablet) 25 mg PO TID [facility] Last Admin: 02/26/24 08:43 Dose: 25 mg Documented By: EVELIN Quetiapine Fumarate (Quetiapine Fumarate 300 Mg Tablet) 300 mg PO BEDTIME [facility] Last Admin: 02/25/24 22:52 Dose: 300 mg Documented By: ROSE Senna/Docusate Sodium (Sennosides/Docusate Sodium Tablet) 2 tab PO BID PRN PRN Reason: constipation Sodium Chloride (0.9 % Sodium Chloride Flush 3 Ml Syringe) 3 ml IVFLUSH QSHIFT [facility] Last Admin: 02/26/24 08:43 Dose: 3 ml Documented By: EVELIN Tamsulosin HCl (Tamsulosin Hcl 0.4 Mg Capsule) 0.4 mg PO BEDTIME [facility] Last Admin: 02/25/24 22:52 Dose: 0.4 mg Documented By: ROSE Labs 02/26/24 06:20 02/25/24 14:30 Labs: Laboratory Results - last 24 hr 02/25/24 02/26/24 14:30 06:20 MCV 91.4 91.4 MCH 31.4 31.1 MCHC 34.4 34.0 RDW 14.2 14.2 Plt Count 257 252 MPV 10.4 10.6 Immature Gran % (Auto) 0.3 Neut % (Auto) 70.9 Lymph % (Auto) 15.5 L Hubbard % (Auto) 11.5 H Eos % (Auto) 1.3 Baso % (Auto) 0.5 Lymph # (Auto) 1.6 Hubbard # (Auto) 1.2 Eos # (Auto) 0.1 Baso # (Auto) 0.1 Abs Immat Gran (auto) 0.03 Absolute Neuts (auto) 7.5 Absolute Nucleated RBC 0.000 0.000 Nucleated RBC % (auto) 0.0 0.0 Anion Gap 12 Estim Creat Clear Calc 52.9 Estimated GFR > 60 Random Glucose 85 Calcium 9.1 Blood Type O Positive Antibody Screen NEGATIVE Assessment and Plan (1) Abscess: Status: Acute Plan d2 58yo M with hx IDU, HTN, PVD, PTSD, HCV, and bipolar disorder sent in from [facility] due to nonresolving but spontaneously draining R hand abscess, I+D completed in the ED. purulent cellulitis of R hand due to IDU - 02/24- IV vancomycin, follow blood cultures given risk of bacteremia from IDU, consulted Orthopedics and no operative intervention required - screen HBV/HCV [partially treated]/HIV DOMINGUEZ, mild - recheck BMP pending hyperK, mild - 1 dose SZC, recheck BMP pending PVD - ASA BPH - continue tamsulosin bipolar disorder PTSD OUD - resume olanzapine, quetiapine, gabapentin - resume Suboxone - Psychiatry consultation re continuation of psychiatric care VTE ppx - LMWH dispo - eventually home In my clinical judgment, the patient requires continued inpatient hospitalization for the following reasons: IV ABX Total time managing care of this patient today: 35 minutes. Quality Stroke Does the patient have a stroke diagnosis?: No VTE Prior VTE?: No VTE Risk Level:: Medical - moderate - high VTE Device Contraindication: N/A - Device Ordered VTE Drug Contraindication: N/A - Med Ordered
--- NOTE | 2024-02-26 11:41 | PC.NURSE ---
applied warm compress to pts L hand for 20 min
--- NOTE | 2024-02-26 12:14 | MHC.CM.PN ---
PT REPORTS HE LIVES WITH HIS BUT CAME IN FROM [facility] HE SAYS HE NEEDS TO GO BACK THERE AT DC BECAUSE HIS BELONGINGS ARE THERE, BUT DOES NOT FEEL HE NEEDS FURTHER PSYCH TREATMENT HE SAYS THEY WERE PLANNING TO DC HIM ANYWAY PT DECLINES TO COMPLETE A HCP PCP: ELYSIA DUFFY DCP TBD PENDING CRISIS CLEARANCE PT WILL NEED TRANSPORT ARRANGED
[2024-02-26] MEDS: hydrOXYzine HCL 25 MG TABLET PO (12:16)
[2024-02-26 12:21] VITALS: BP 153/101; PULSE 78; RESP 17; TEMP 36.4; O2SAT 100
--- NOTE | 2024-02-26 15:11 | PC.NURSE ---
pt resting with eyes closed at this time, blanket over eyes, respirations even and unlabored. sitter at bedside. will hold seroquel until pt awake.
[2024-02-26 15:25] VITALS: BP 160/85; PULSE 82; RESP 16; TEMP 36.5; O2SAT 100
--- NOTE | 2024-02-26 15:40 | PC.NURSE ---
pt requesting to receive his second dose of PRN Klonopin 0.5 mg at 1600 instead of 2100. request made to MD Razo and approved. will medicate pt per MAR
[2024-02-26] MEDS: Enoxaparin Sodium 40 MG/0.4 ML SYRINGE SUBCUT (18:23)
[2024-02-26 18:52] LABS: Alanine Aminotransferase 15 U/L (0-40); Albumin Level 3.9 g/dL (3.5-5.0); Alkaline Phosphatase 56 U/L (39-117); Anion Gap 11 (12-20); Aspartate Amino Transferase 17 U/L (5-37); Bilirubin Total 0.2 mg/dL (0.0-1.0); Blood Urea Nitrogen 22 mg/dL (9-16); Calcium 8.8 mg/dL (8.4-10.2); Carbon Dioxide 29 mmol/L (22-29); Chloride 101 mmol/L (96-108); Creatinine Clr Calc Pharmacy 77.1; Estimated Glomerular Filt Rate > 60; Glucose Random 93 mg/dL (60-115); Potassium 4.5 mmol/L (3.3-5.1); Sodium 136 mmol/L (135-145); Total Protein 7.5 g/dL (6.5-8.0)
--- NOTE | 2024-02-26 19:00 | HE.PHANOTE ---
RE: vanco level came back at 8.0mg/L after two doses, increased dose to 750mg Q8H due to renal improvement. Predicted trough of 15.4mg/L, AUC of 511 mg/L. Next level to be drawn after 3 doses on 02/26 @1800
--- NOTE | 2024-02-26 19:07 | PC.NURSE ---
this rn assumed care of pt, pt resting in stretcher, no acute distress noted. 1:1 sitter at bedside.
[2024-02-26 20:12] VITALS: BP 150/77; PULSE 88; RESP 16; TEMP 37.1; O2SAT 97
[2024-02-26] MEDS: OLANZapine 10 MG TABLET PO (21:07)
[2024-02-26] MEDS: Tamsulosin HCL 0.4 MG CAPSULE PO (21:07)
[2024-02-26] MEDS: Gabapentin 300 MG CAPSULE PO (21:07)
[2024-02-26] MEDS: QUEtiapine Fumarate 300 MG TABLET PO (21:07)
[2024-02-27 03:38] VITALS: BP 135/72; PULSE 75; RESP 16; TEMP 36.4; O2SAT 98
[2024-02-27] MEDS: vancomycin HCL 750 MG in 0.9 % Sodium Chloride 250 ML 265 MG IV ×2 (04:05→11:20)
[2024-02-27 06:02] LABS: Creatinine Clr Calc Pharmacy 84.1; Estimated Glomerular Filt Rate > 60
[2024-02-27 07:47] VITALS: BP 153/86; PULSE 86; RESP 18; TEMP 36.3; O2SAT 98
--- NOTE | 2024-02-27 08:15 | PM.PNORT ---
Subjective Subjective Date of Service: 02/27/24 Interval history: f/u right hand abscess no overnight events states his hand feels better Physical Exam Vital Signs: Vital Signs: Last Vital Signs Temp 97.4 F 02/27/24 07:47 Pulse 86 02/27/24 07:47 Resp 18 02/27/24 07:47 BP 153/86 H 02/27/24 07:47 Pulse Ox 98 02/27/24 07:47 O2 Del Method Room Air 02/27/24 07:47 BMI result Body Mass Index 20.0 Const: General: cooperative, healthy appearing, comfortable and no acute distress Extrem: Other: Right hand abscess obver the dorsal aspect of the hand in line with the 2,3rd metacarpals. No active drainage. No Flatulence, No significant erythema. No tenderness to palpation. No pain with axial loading of the MCPS or wrist joint. He can make a closed fist and extends all digits. No pain along the flexor tendons, web spaces or thenar eminence. NVI. Procedures Date of Service Date of Service: 02/27/24 Progress Note: A&P Assessment and plan (1) Abscess: Status: Acute Assessment and Plan: continue warm compress no surgical intervention cont abx Time Spent With Patient Time: Total time managing care of this patient today ____ minutes. Quality Stroke Does the patient have a stroke diagnosis?: No VTE Prior VTE?: No VTE Risk Level:: Medical - moderate - high VTE Device Contraindication: N/A - Device Ordered VTE Drug Contraindication: N/A - Med Ordered
[2024-02-27] MEDS: Aspirin Enteric Coated 81 MG TABLET.DR PO (08:37)
[2024-02-27] MEDS: Buprenorphine/Naloxone 8/2 mg FILM 2 FILM SUBLINGUAL (08:37)
[2024-02-27] MEDS: QUEtiapine Fumarate 25 MG TABLET PO ×2 (08:37→14:18)
[2024-02-27] MEDS: 0.9 % Sodium Chloride Flush 3 ML SYRINGE IVFLUSH ×2 (08:53→14:18)
[2024-02-27] MEDS: clonazePAM 0.5 MG TABLET PO (08:53)
--- NOTE | 2024-02-27 08:58 | PC.NURSE ---
Pt [facility] band has come off of Pt wrist, This RN spoke with [facility] and they advised hold for now if no surgical interventions noted at this time.
[2024-02-27 10:34] LABS: HBS Num1 0.52 mIU/mL (0-7.99); HBc Num1 0.62 S/CO (0.00-0.79); HBsAGNum1 0.23 S/CO (0.00-0.99); HIV AB/AG Nonreactive (Nonreactive); HIV Num 1 0.05 S/CO (0.00-0.99); Hepatitis B Core Antibody Nonreactive (Nonreactive); Hepatitis B Surface Antigen Negative (Negative); ~HepC Num1 12.71 S/CO (0.00-0.79); ~Hepatitis B Surface Antibody NONREACTIVE (Nonreactive); ~Hepatitis C Antibody Reactive (Nonreactive)
[2024-02-27 10:48] VITALS: BP 153/86
[2024-02-27] MEDS: lisinopriL 10 MG TABLET PO (10:48)
--- NOTE | 2024-02-27 11:18 | MHC.CM.PN ---
EMR REVIEWED. PER MD ROUNDS PATIENT PENDING CARE TEAM CLEARANCE AND PSYCH CONSULT FOR MEDS. CM WILL CONTINUE TO FOLLOW.
--- NOTE | 2024-02-27 11:25 | PM.DS ---
DS: Providers Provider Date of Service: 02/27/24 Date of admission: 02/25/24 16:59 Date of discharge: 02/27/24 Primary care physician: LOC Plascencia Consults: 02/25/24 16:43 Consult to Orthopedics Routine Consulting Provider: [facility] Reason for consultation: hand abscess 02/25/24 16:46 Consult to Psychiatry Routine Consulting Provider: Psych Covering Reason for consultation: Bipolar, was transferred from [facility] for medical issue 02/26/24 22:35 Consult to Wound Care Routine Reason for consultation: right hand injection site/cellulitis 02/27/24 08:11 Consult to Psychiatry Routine Consulting Provider: Psych Covering Reason for consultation: Patient was transferred from [facility]. OK to d/c home on current meds??? 02/27/24 09:28 Consult to Care Team Stat Comment: Reason for consultation: Came from [facility] for medical issue that resolved. Dispo/meds/followup DS: Diagnosis Discharge Diagnosis (1) Abscess: Status: Acute (2) Acute kidney injury: Status: Acute DS: Summary Hospital Course Hospital Course: From my admission history and physical on 02/25/24: 58yo M with hx IDU, HTN, PVD, PTSD, HCV, and bipolar disorder who was sent in from [facility], where he was admitted on 02/18/24. Prior to that, he injected drugs into the dorsum of his right hand and subsequently developed an abscess. Due to failure to improve on oral antibiotics, he was sent in. He started expressing pus and blood from the abscess today. He denies fever, chills, or any systemic symptoms. He endorses pain only with pressing on the abscess. No numbness or tingling of the fingers and no weakness of the hand. No history of bloodstream infection or endocarditis. Not diabetic. Psychiatrically, he denies depression or anxiety, hallucinations or delusions, or suicidal ideation; he states he was actually scheduled to be discharged tomorrow. He is on Suboxone for OUD. In the ED, he was given IV cefazolin and doxycycline. I+D expressed about 2 mL of fluid. WBC count was 10.6 and SCr 1.24 [baseline 0.85]. K 5.2. He was also give 1L of IV LR. 58yo M with hx IDU, HTN, PVD, PTSD, HCV, and bipolar disorder sent in from [facility] due to nonresolving but spontaneously draining R hand abscess, I+D completed in the ED. He was admitted to the medical-surgical floor on IV vancomycin. Blood cultures were negative at 48 hours and the swelling and erythema improved markedly. Orthopedics was consulted and no operative intervention indicated. He was discharged home after clearance by the psychiatric assessment team. He was placed on 5 days of PO doxycycline. He had very mild DOMINGUEZ that resolved with IV hydration [SCr 1.24->0.85]. In terms of psychiatric medications, he was advised to continue olanzapine, quetiapine, gabapentin, and clonazepam as per [facility]. Time Attestation Discharge Coordination Time (in mins): 35 Quality: Safe Use of Opioids Does Pt have an Active Cancer Diagnosis on the Problem List?: No Quality: Stroke Does the patient have a stroke diagnosis?: No Physical Exam Vital Signs: Vital Signs: Last Vital Signs Temp 97.4 F 02/27/24 07:47 Pulse 86 02/27/24 07:47 Resp 18 02/27/24 07:47 BP 153/86 H 02/27/24 10:48 Pulse Ox 98 02/27/24 07:47 O2 Del Method Room Air 02/27/24 07:47 BMI result Body Mass Index 20.0 Gen: in no acute distress HEENT: sclera anicteric, moist mucus membranes Neck: supple Lungs: clear to auscultation bilaterally Heart: regular rate and rhythm, no murmurs Abd: soft, non-tender, non-distended Ext: no edema Skin: warm/well-perfused, multiple scars on R forearm. 2-3 cm drained abscess with erythema s/p I+D on R hand dorsum Neuro: alert and oriented x3, neurovascularly intact distal to the abscess Psych: appropriate affect DS: Data Data Completed and Pending Completed studies during hospitalization [Text1]: Laboratory Results WBC 6.0 X10*3/uL (4.8-10.8) 02/26/24 06:20 RBC 4.28 X10*6/uL (4.60-5.80) L 02/26/24 06:20 Hgb 13.3 g/dl (14.0-18.0) L 02/26/24 06:20 Hct 39.1 % (42.0-52.0) L 02/26/24 06:20 MCV 91.4 fL (80.0-98.0) 02/26/24 06:20 MCH 31.1 pg (27.0-33.0) 02/26/24 06:20 MCHC 34.0 g/dl (31.0-36.0) 02/26/24 06:20 RDW 14.2 % (11.0-16.0) 02/26/24 06:20 Plt Count 252 X10*3/uL (160-400) 02/26/24 06:20 MPV 10.6 fL (9.4-12.4) 02/26/24 06:20 Immature Gran % (Auto) 0.3 % (0.0-0.4) 02/25/24 14:30 Neut % (Auto) 70.9 % (45-73) 02/25/24 14:30 Lymph % (Auto) 15.5 % (20-40) L 02/25/24 14:30 [place] % (Auto) 11.5 % (2-11) H 02/25/24 14:30 Eos % (Auto) 1.3 % (0-4) 02/25/24 14:30 Baso % (Auto) 0.5 % (0-2) 02/25/24 14:30 Lymph # (Auto) 1.6 X10*3/uL (1.2-4.9) 02/25/24 14:30 [place] # (Auto) 1.2 X10*3/uL (0.1-1.2) 02/25/24 14:30 Eos # (Auto) 0.1 X10*3/uL (0.0-0.4) 02/25/24 14:30 Baso # (Auto) 0.1 X10*3/uL (0.0-0.2) 02/25/24 14:30 Abs Immat Gran (auto) 0.03 X10*3/uL (0.00-0.03) 02/25/24 14:30 Absolute Neuts (auto) 7.5 x10*3/uL (2.0-8.3) 02/25/24 14:30 Absolute Nucleated RBC 0.000 X10*3/uL (0.0-0.012) 02/26/24 06:20 Nucleated RBC % (auto) 0.0 /100WBC (0.0-0.2) 02/26/24 06:20 Hold Purple Top SEE NOTE 02/27/24 05:01 Sodium 136 mmol/L (135-145) 02/26/24 18:29 Potassium 4.5 mmol/L (3.3-5.1) 02/26/24 18:29 Chloride 101 mmol/L (96-108) 02/26/24 18:29 Carbon Dioxide 29 mmol/L (22-29) 02/26/24 18: Anion Gap 11 (12-20) L 02/26/24 18:29 BUN 22 mg/dL (9-16) H 02/26/24 18: Creatinine 0.78 mg/dL (0.5-1.4) 02/27/24 05:01 Estim Creat Clear Calc 84.1 02/27/24 05:01 Estimated GFR > 60 02/27/24 05:01 Random Glucose 93 mg/dL (60-115) 02/26/24 18: Calcium 8.8 mg/dL (8.4-10.2) 02/26/24 18: Total Bilirubin 0.2 mg/dL (0.0-1.0) 02/26/24 18:29 AST 17 U/L (5-37) 02/26/24 18: ALT 15 U/L (0-40) 02/26/24 18: Alkaline Phosphatase 56 U/L (39-117) 02/26/24 18: Total Protein 7.5 g/dL (6.5-8.0) 02/26/24 18: Albumin 3.9 g/dL (3.5-5.0) 02/26/24 18: Random Vancomycin 8.0 mcg/mL (15-20) L 02/26/24 18:29 Hep Bs Antigen Negative (Negative) 02/26/24 18: Hep Bs Antibody NONREACTIVE (Nonreactive) 02/26/24 18: Hep B Core Total Ab Nonreactive (Nonreactive) 02/26/24 18:29 Hepatitis C Ab (EIA) Reactive (Nonreactive) H 02/26/24 18: HIV 1&2 Ab/P24 Ag 4thGn Nonreactive (Nonreactive) 02/26/24 18:29 Blood Type O Positive 02/25/24 14:30 Antibody Screen NEGATIVE 02/25/24 14:30 Impressions Forearm X-Ray 02/25/24 15:09 Impression: Soft tissue swelling along the dorsal aspect of the hand but no acute underlying fracture or dislocation. Old healed fracture of the distal ulna. Likely chronic foreign bodies seen Hand X-Ray 02/25/24 15:09 Impression: Soft tissue swelling along the dorsal aspect of the hand but no acute underlying fracture or dislocation. Old healed fracture of the distal ulna. Likely chronic foreign bodies seen Discharge Plan Discharge Anticipated Discharge Date/Time: 02/27/24 15:00 Patient Disposition: Home, Self-Care Discharge Diagnosis: hand abscess bipolar disorder/PTSD Referrals: Gwendolyn Maguire PA [Primary Care Provider] - 1 Week Discharge Medications: New doxycycline monohydrate 100 mg tablet 100 mg PO BID Qty: 10 0RF Continued quetiapine 25 mg tablet 25 mg PO TID quetiapine 300 mg Tablet 300 mg PO BEDTIME clonazepam 0.5 mg Tablet 0.5 mg PO BID PRN (Reason: Anxiety) aspirin 81 mg tablet,delayed release (DR/EC) 81 mg PO DAILY tamsulosin [Flomax] 0.4 mg Capsule 0.4 mg PO BEDTIME lisinopril 10 mg tablet 10 mg PO DAILY gabapentin 300 mg Capsule 300 mg PO BEDTIME albuterol sulfate [ProAir HFA] 90 mcg/actuation Hfa Aerosol Inhaler 2 puff INHALATION Q4H PRN (Reason: Shortness Of Breath) buprenorphine-naloxone [Suboxone] 8-2 mg film 2 film sublingual DAILY olanzapine 10 mg Tablet 10 mg PO BEDTIME Discontinued hydroxyzine pamoate 25 mg Capsule 25 mg PO TID PRN (Reason: Anxiety) Discharge Orders: Discharge Order (Routine); Ordered 02/27/24 Ordered By: Bhavya Razo Diet: Advance to usual diet Activity on Discharge: As tolerated Stand Alone Forms: Patient Portal Discharge page Print Language: Filipino Care Plan Goals: cure of infection mental wellness Health Concerns: hand abscess bipolar disorder/PTSD Plan of Treatment: abscess drained apply warm compresses take doxycycline 100 mg twice daily take psychiatric medications as indicated and follow-up with psychiatric providers as arranged Please follow up with your primary care doctor within 1 week. Return to the hospital if you experience recurrent or worsening symptoms. Assessment: See Discharge Summary. Discharge Date/Time: 02/27/24 16:10
--- NOTE | 2024-02-27 11:31 | PC.NURSE ---
Pt denies any thoughts or plans of harming self or others, 1:1 sitter at bedside at this time.
--- NOTE | 2024-02-27 11:41 | MHC.CARE ---
Pt has been psychiatrically clear by the CARE Team and does not require further mental health treatment. CARE Team confirmed with [facility] Provider Dr. Sammie Trejo that Pt had completed treatment the day Pt was transported [place] [facility] [place]. Pt has providers through [facility] and receives Suboxone through [facility] to which [facility] has set up follow-up appoinments for. Pt is able to fruit picker his belongings at any time.
--- NOTE | 2024-02-27 12:29 | PM.PSYCN ---
History of Present Illness Date of Service: 02/27/2024 Chief Complaint: purulent cellulitis r hand Reason for Consult: evaluate current psych medications for discharge Requesting physician: Bhavya Razo Discussed with referring provider: Yes Sources of Information: patient interviewed, chart reviewed and crisis/core team assessment reviewed Additional Sources of Information: discussed with care team HPI Narrative: 58 yo admitted to Ed then medical floor for treatment of hand wound . pt was sent to [facility] via ambulance from [facility] where he was inpatient. Care team saw patient this am and did LOC assessment. pt ready for discharge and [facility] confirmed patient had completed treatment at time of medical transfer. Pt is seen today . he is sitting in hospital bed; He is pleasant and cooperative; makes good eye contact. He reports mood good, he hears voices but they are decreased in volume and intensity; he says the seroquel and olanzapine has helped. He denies SI or HI; He denies side effects; He has follow up providers at the [facility] where he lived before he recently got his own apartment. Past Psychiatric History: [facility] kill[facility], outpt psychiatry at [facility], suboxone treatment through [facility] Medical Evaluation Reviewed: Yes Personal & Social History: has supportive Review of Systems Review of Systems ROS as per HPI Yes all other systems are reviewed and are negative [facility] Medical History (Updated 02/27/24 @ 11:29 by Bhavya Razo MD) Hepatitis C Polysubstance abuse Opioid use disorder Bipolar disease, chronic PVD (peripheral vascular disease) HTN (hypertension) Injection of illicit drug within last 12 months PTSD (post-traumatic stress disorder) Social History: supportive , outpt providers Substance History: on MAT through [facility] Vital Signs (24Hr): Vital Signs - 24 hr 02/26/24 15:25 02/26/24 20:12 02/27/24 03:38 Temperature 97.7 F 98.7 F 97.6 F Pulse Rate 82 88 75 Respiratory Rate 16 16 16 Blood Pressure 160/85 H 150/77 H 135/72 Pulse Oximetry 100 97 98 Oxygen Delivery Method Room Air Room Air Room Air 02/27/24 07:47 02/27/24 10:48 Temperature 97.4 F Pulse Rate 86 Respiratory Rate 18 Blood Pressure 153/86 H 153/86 H Pulse Oximetry 98 Oxygen Delivery Method Room Air BMI result Body Mass Index 20.0 Labs 02/26/24 06:20 02/27/24 05:01 Labs: Laboratory Results - last 48 hr 02/25/24 02/26/24 02/26/24 14:30 06:20 18:29 WBC 10.6 6.0 RBC 3.82 L 4.28 L Hgb 12.0 L 13.3 L Hct 34.9 L 39.1 L MCV 91.4 91.4 MCH 31.4 31.1 MCHC 34.4 34.0 RDW 14.2 14.2 Plt Count 257 252 MPV 10.4 10.6 Immature Gran % (Auto) 0.3 Neut % (Auto) 70.9 Lymph % (Auto) 15.5 L [place] % (Auto) 11.5 H Eos % (Auto) 1.3 Baso % (Auto) 0.5 Lymph # (Auto) 1.6 [place] # (Auto) 1.2 Eos # (Auto) 0.1 Baso # (Auto) 0.1 Abs Immat Gran (auto) 0.03 Absolute Neuts (auto) 7.5 Absolute Nucleated RBC 0.000 0.000 Nucleated RBC % (auto) 0.0 0.0 Hold Purple Top Sodium 134 L 136 Potassium 5.2 H 4.5 Chloride 100 101 Carbon Dioxide 27 29 Anion Gap 12 11 L BUN 32 H 22 H Creatinine 1.24 0.85 Estim Creat Clear Calc 52.9 77.1 Estimated GFR > 60 > 60 Random Glucose 85 93 Calcium 9.1 8.8 Total Bilirubin 0.2 AST 17 ALT 15 Alkaline Phosphatase 56 Total Protein 7.5 Albumin 3.9 Random Vancomycin 8.0 L Hep Bs Antigen Negative Hep Bs Antibody NONREACTIVE Hep B Core Total Ab Nonreactive Hepatitis C Ab (EIA) Reactive H HIV 1&2 Ab/P24 Ag 4thGn Nonreactive Blood Type O Positive Antibody Screen NEGATIVE 02/27/24 05:01 WBC RBC Hgb Hct MCV MCH MCHC RDW Plt Count MPV Immature Gran % (Auto) Neut % (Auto) Lymph % (Auto) [place] % (Auto) Eos % (Auto) Baso % (Auto) Lymph # (Auto) [place] # (Auto) Eos # (Auto) Baso # (Auto) Abs Immat Gran (auto) Absolute Neuts (auto) Absolute Nucleated RBC Nucleated RBC % (auto) Hold Purple Top SEE NOTE Sodium Potassium Chloride Carbon Dioxide Anion Gap BUN Creatinine 0.78 Estim Creat Clear Calc 84.1 Estimated GFR > 60 Random Glucose Calcium Total Bilirubin AST ALT Alkaline Phosphatase Total Protein Albumin Random Vancomycin Hep Bs Antigen Hep Bs Antibody Hep B Core Total Ab Hepatitis C Ab (EIA) HIV 1&2 Ab/P24 Ag 4thGn Blood Type Antibody Screen Imaging Radiology Impressions: ITS Impressions Forearm X-Ray 02/25/24 15:09 Impression: Soft tissue swelling along the dorsal aspect of the hand but no acute underlying fracture or dislocation. Old healed fracture of the distal ulna. Likely chronic foreign bodies seen Hand X-Ray 02/25/24 15:09 Impression: Soft tissue swelling along the dorsal aspect of the hand but no acute underlying fracture or dislocation. Old healed fracture of the distal ulna. Likely chronic foreign bodies seen Mental Status Exam Mental Status Exam Patient Appearance: Well Grooomed and Appropriate Patient Orientation: Person, Place, Time and Situation Level of Consciousness: Awake Patient Behavior: Appropriate Mood Description: Calm Affect Description: Calm Patient Cognition Impaired: No Ability to Follow Directions: Good Speech Pattern: Clear and Appropriate Memory Description: Intact Hallucinations: Auditory (noncommand type) Delusions: Not Present Thought Process: Intact and Goal Oriented Thought Content: positive for Intact and positive for Goal Oriented Judgement: Fair Medications Medications Current Medications Acetaminophen (Acetaminophen 325 Mg Tablet) 650 mg PO Q4H PRN PRN Reason: Pain, Mild (Pain Scale 1-3) Acetaminophen (Acetaminophen 325 Mg Tablet) 650 mg PO Q4H PRN PRN Reason: Fever Aspirin (Aspirin Enteric Coated 81 Mg Tablet.) 81 mg PO DAILY [facility] Last Admin: 02/27/24 08:37 Dose: 81 mg Buprenorphine/Naloxone (Buprenorphine/Naloxone 8/2 Mg Film) 2 film SUBLINGUAL DAILY [facility] Last Admin: 02/27/24 08:37 Dose: 2 film Calcium Carbonate (Calcium Carbonate 750 Mg Tab.Chew) 750 mg PO Q6H PRN PRN Reason: Heartburn Clonazepam (Clonazepam 0.5 Mg Tablet) 0.5 mg PO BID PRN PRN Reason: Anxiety Last Admin: 02/27/24 08:53 Dose: 0.5 mg Enoxaparin Sodium (Enoxaparin Sodium 40 Mg/0.4 Ml Syringe) 40 mg SUBCUT Q24H [facility] Last Admin: 02/26/24 18:23 Dose: 40 mg Gabapentin (Gabapentin 300 Mg Capsule) 300 mg PO BEDTIME [facility] Last Admin: 02/26/24 21:07 Dose: 300 mg Hydroxyzine HCl (Hydroxyzine Hcl 25 Mg Tablet) 25 mg PO TID PRN PRN Reason: Anxiety Last Admin: 02/26/24 12:16 Dose: 25 mg Vancomycin HCl 750 mg/ Sodium (Chloride) 265 mls @ 265 mls/hr IV Q8H [facility] Last Admin: 02/27/24 11:20 Dose: 265 mls/hr Lisinopril (Lisinopril 10 Mg Tablet) 10 mg PO DAILY [facility]; Protocol Last Admin: 02/27/24 10:48 Dose: 10 mg Magnesium Hydroxide (Milk Of Magnesia 30 Ml Oral.Susp) 30 ml PO DAILY PRN PRN Reason: Constipation Melatonin (Melatonin 3 Mg Tablet) 6 mg PO BEDTIME PRN PRN Reason: Insomnia Morphine Sulfate (Morphine Sulfate 4 Mg/Ml Cartridge) 4 mg IM Q4H PRN; Protocol PRN Reason: Pain, Severe (Pain Scale 7-10) Olanzapine (Olanzapine 10 Mg Tablet) 10 mg PO BEDTIME [facility] Last Admin: 02/26/24 21:07 Dose: 10 mg Oxycodone HCl (Oxycodone Hcl Immed Release 5 Mg Tablet) 10 mg PO Q6H PRN PRN Reason: Pain, Moderate(Pain Scale 4-6) Pharmacy Consult (Consult Rx Vancomycin Dosing) 1 each MISCELLANE DAILY PRN PRN Reason: Consult order Polyethylene Glycol (Polyethylene Glycol 3350 17 Gm Powd.Pack) 17 gm PO DAILY PRN PRN Reason: Constipation Quetiapine Fumarate (Quetiapine Fumarate 25 Mg Tablet) 25 mg PO TID [facility] Last Admin: 02/27/24 08:37 Dose: 25 mg Quetiapine Fumarate (Quetiapine Fumarate 300 Mg Tablet) 300 mg PO BEDTIME [facility] Last Admin: 02/26/24 21:07 Dose: 300 mg Senna/Docusate Sodium (Sennosides/Docusate Sodium Tablet) 2 tab PO BID PRN PRN Reason: constipation Sodium Chloride (0.9 % Sodium Chloride Flush 3 Ml Syringe) 3 ml IVFLUSH QSHIFT [facility] Last Admin: 02/27/24 08:53 Dose: 3 ml Tamsulosin HCl (Tamsulosin Hcl 0.4 Mg Capsule) 0.4 mg PO BEDTIME [facility] Last Admin: 02/26/24 21:07 Dose: 0.4 mg Allergies Allergies Allergy/AdvReac Type Severity Reaction Status Date / Time No Known Allergies Allergy Verified 02/27/24 08:11 Assessment & Plan Assessment & Plan (1) Abscess: Status: Acute Code(s): L02.91 - Cutaneous abscess, unspecified (2) Acute kidney injury: Status: Acute Code(s): N17.9 - Acute kidney failure, unspecified (3) PTSD (post-traumatic stress disorder): Status: Acute Code(s): F43.10 - Post-traumatic stress disorder, unspecified (4) Bipolar disease, chronic: Status: Acute Code(s): F31.9 - Bipolar disorder, unspecified Plan Recommend Continue: Seroqule 300mg at bedtime Seroqule 25mg TID Olanzepine 10mg at bedtime clonazepam 0.5mg BID Gabapentin 300mg at bedtime discontinue hydroxyzine 25 mg TID prn -pt not using and feels he does not need discontinue melatonin 6 mg at bedtime- Pt not taking Total time managing care of this patient today __60__ minutes. Patient educated on: diagnosis, medication risk/benefits, substance abuse and therapeutic strategies Informed Consent: understands
[2024-02-27 15:05] VITALS: BP 135/73; PULSE 88; RESP 12; TEMP 36.6; O2SAT 99
--- NOTE | 2024-02-27 15:43 | MHC.CARE ---
It Program Auditor from [facility] in [place] called CARE Team to report that Pt is homeless and is unable to return to 's home in [place] due to a restraining order against him. It Program Auditor has cleared him to return and advises that the Pt call the main line tomorrow at 9:30 AM to inquire about bed availability if he is to be discharged today. Hospitalist notified of this.
--- NOTE | 2024-02-27 15:56 | MHC.CM.PN ---
Addendum entered by Ave Xavier RN 02/27/24 16:01: Patient provided information on Lyft car and tile picker location. Original Note: Patient medically cleared for dc home self care. He will take a lyft to [facility] to get all his belongings including his phone. Then he will get a ride to [facility] half-way. He is unable to return to his home as his has a restraining order in place. He declines any assistance from [facility]/ half-way. Lyft scheduled for 4:03 pm. GALINDO aware.
[2024-03-01 14:58] LABS: HCV Log PCR <1.18 NOT DETECTED Log IU/mL (NOT DETECTED); HepC Viral Load <15 NOT DETECTED IU/mL (NOT DETECTED)
== END 2024-02-27 16:10 | disposition home or self-care (01) | DRG 755 ==
LOC: HO.ED 15:45 → HO.EDOVER 17:04 → HO.S3 02-26 18:15
PROVIDERS: Admitting Provider Family Medicine; Emergency Provider Emergency Medicine; PCP Physician Assistant; Visit Provider Family Medicine
DX: F43.10 Post-traumatic stress disorder, unspecified (principal); N17.9 Acute kidney failure, unspecified; L02.511 Cutaneous abscess of right hand; L03.113 Cellulitis of right upper limb; I10 Essential (primary) hypertension; I73.9 Peripheral vascular disease, unspecified; N40.0 Benign prostatic hyperplasia without lower urinary tract symptoms; E87.5 Hyperkalemia; F11.20 Opioid dependence, uncomplicated; F19.10 Other psychoactive substance abuse, uncomplicated; F31.9 Bipolar disorder, unspecified; Z79.82 Long term (current) use of aspirin; Z79.899 Other long term (current) drug therapy
CPT/HCPCS: 36415; 73090; 73130; 80048; 80053; 80202; 82565; 85025; 85027; 86704; 86706; 86803; 86850; 86900; 86901; 87040; 87340; 87389; 87522; 93005; 99221; 99285; J0690; J1650; J3370; J3371; J7120; S9485

== ENCOUNTER → 2024-02-25 16:59 | Outpatient (BNV) | payer MEDICAID, SELFPAY | PROVIDERS: Admitting Provider Family Medicine; Emergency Provider Emergency Medicine; PCP Physician Assistant; Visit Provider Family Medicine | DX: L02.91 Cutaneous abscess, unspecified (principal); N17.9 Acute kidney failure, unspecified | CPT/HCPCS: 99223; 99232; 99239 ==

== ENCOUNTER → 2024-02-25 16:59 | Outpatient (BNV) | payer OTHER, SELFPAY | PROVIDERS: Admitting Provider Family Medicine; Emergency Provider Emergency Medicine; PCP Physician Assistant; Visit Provider Clinical Nurse Specialist Psychiatric/Mental Health | DX: F31.9 Bipolar disorder, unspecified (principal); F43.10 Post-traumatic stress disorder, unspecified; N17.9 Acute kidney failure, unspecified; L02.91 Cutaneous abscess, unspecified | CPT/HCPCS: 99233 ==

== ENCOUNTER → 2024-02-25 16:59 | Outpatient (BNV) | payer MEDICAID, SELFPAY | PROVIDERS: Admitting Provider Family Medicine; Emergency Provider Emergency Medicine; PCP Physician Assistant; Visit Provider Physician Assistant | DX: L02.91 Cutaneous abscess, unspecified (principal) | CPT/HCPCS: 99222; 99231 ==

== ENCOUNTER 2024-04-26 19:56 | Emergency (ER) | payer MEDICAID, SELFPAY ==
--- NOTE | 2024-04-26 20:00 | ECG_ITS ---
Test Reason : unresponsive/overdose Blood Pressure : / mmHG Vent. Rate : 079 BPM Atrial Rate : 079 BPM P-R Int : 116 ms QRS Dur : 086 ms QT Int : 368 ms P-R-T Axes : 068 077 060 degrees QTc Int : 421 ms Normal sinus rhythm Normal ECG When compared with ECG of 25-FEB-2024 15:19, No significant change was found Referred By: Mani Lazaro Electronically Signed By:ALYCIA SANTA MD
--- NOTE | 2024-04-26 20:01 | ED_ITS ---
HPI - General Adult General Chief complaint: Overdose Stated complaint: FOUND UNRESPONSIVE, 8MG NARCAN GIVEN, 15LPM BECCA Time Seen by Provider: 04/26/24 20:00 History of Present Illness ED Provider: Iveth NASH narrative: The patient is a 58-year-old male who was apparently found unresponsive on the sidewalk today. Police were 1st responders. Police administered 2 doses of naloxone nasally, 4 mg each. When paramedics arrived the patient was hypertensive. He became more awake with paramedics. He was briefly on a non-rebreather but they were able to take him off the supplemental oxygen. On arrival here the patient admits to using heroin nasally. Related Data Home Medications ?Medication ?Instructions ?Recorded ?Confirmed albuterol sulfate 90 mcg/actuation 2 puff inhalation Q4H PRN 02/25/24 02/25/24 aerosol inhaler (ProAir HFA) Shortness Of Breath aspirin 81 mg tablet,delayed 81 mg PO DAILY 02/25/24 02/25/24 release buprenorphine 8 mg-naloxone 2 mg 2 film sublingual DAILY 02/25/24 02/25/24 sublingual film (Suboxone) clonazepam 0.5 mg tablet 0.5 mg PO BID PRN Anxiety 02/25/24 02/25/24 gabapentin 300 mg capsule 300 mg PO BEDTIME 02/25/24 02/25/24 lisinopril 10 mg tablet 10 mg PO DAILY 02/25/24 02/25/24 olanzapine 10 mg tablet 10 mg PO BEDTIME 02/25/24 02/25/24 quetiapine 25 mg tablet 25 mg PO TID 02/25/24 02/25/24 quetiapine 300 mg tablet 300 mg PO BEDTIME 02/25/24 02/25/24 tamsulosin 0.4 mg capsule (Flomax) 0.4 mg PO BEDTIME 02/25/24 02/25/24 Previous Rx's ?Medication ?Instructions ?Recorded doxycycline monohydrate 100 mg 100 mg PO BID #10 tabs 02/27/24 tablet Allergies Allergy/AdvReac Type Severity Reaction Status Date / Time No Known Allergies Allergy Verified 04/26/24 20:06 Review of Systems 2 Review of Systems: Yes all other systems are reviewed and are negative PMFSH Past Medical History Medical History (Updated 04/27/24 @ 00:01 by Background Daanjum) Hepatitis C Polysubstance abuse Opioid use disorder Bipolar disease, chronic PVD (peripheral vascular disease) HTN (hypertension) Injection of illicit drug within last 12 months PTSD (post-traumatic stress disorder) Social History Social History Household Members: Spouse Housing: Apartment Do you presently have visiting nurse or other home services: No Patient Tobacco Use Status: Never used Tobacco Smoked in Last 30 Days: Yes Use of substances other than those prescribed or required for medical reasons: Yes Substance Use Type: Heroin and Marijuana Substance Use Frequency: Chronic Longstanding Last Used Substance: Just Prior to Admission Advance Directives: No Advance Directives Information Provided: No Do you have a plan to hurt others: No Plan service: No Physical Exam ED Vital Signs: Vital Signs - 24 hr 04/26/24 20:02 04/26/24 23:02 04/26/24 23:48 Temperature 97.6 F Pulse Rate 78 74 73 Respiratory Rate 14 12 16 Blood Pressure 174/108 H 131/73 133/80 Pulse Oximetry 100 98 97 Oxygen Delivery Method Room Air Room Air Room Air 04/26/24 23:57 Temperature 97.6 F Pulse Rate 73 Respiratory Rate 18 Blood Pressure 133/80 Pulse Oximetry 97 Oxygen Delivery Method Room Air BMI result Body Mass Index 21.6 Const Other: The patient is a slim 58-year-old who was awake did not seem in obvious distress. HENMT Other: No sign of trauma to the head or the face Eyes Other: Pupils were midsize, round, equal, conjunctivae clear, extraocular movements intact Neck Other: Moving his neck easily Chest Other: The sternal skin was somewhat excoriated apparently from sternal rubs by first responders. Resp Effort & Inspection: normal respiratory effort Auscultation: clear to auscultation bilaterally Cardio Rate: regular rate Rhythm: regular rhythm Heart sounds: S1 normal heart sound present and S2 normal heart sound present GI Other: Abdomen is soft and nontender Skin Other: There is some excoriation to the skin over the sternum. Otherwise the skin shows no erythema or other acute changes. Neuro Other: The patient was awake and alert. Face was symmetrical. Eye movements intact. Speech clear. He moves his extremities symmetrically. He seems neurologically intact. Extrem Other: No injuries to the extremities. No peripheral edema. Medical Decision Making Medical Decision Making [facility] Narrative: The patient is a 58-year-old male who was apparently found unresponsive and then woke up following naloxone. He admits to using nasal opioids. Labs were checked which were unremarkable. He was observed for several hours. For the most part he fell asleep after our initial evaluation. Ultimately he woke up and seemed entirely awake and steady on his feet and he requested discharge. Lab Data 04/26/24 20:22 04/26/24 20:22 Labs: Lab Results 04/26/24 04/26/24 04/26/24 Range/Units 19:59 20:22 23:43 WBC 8.4 (4.8-10.8) X10*3/uL RBC 3.83 L (4.60-5.80) X10*6/uL Hgb 11.5 L (14.0-18.0) g/dl Hct 34.7 L (42.0-52.0) % MCV 90.6 (80.0-98.0) fL MCH 30.0 (27.0-33.0) pg MCHC 33.1 (31.0-36.0) g/dl RDW 14.4 (11.0-16.0) % Plt Count 305 (160-400) X10*3/uL MPV 10.0 (9.4-12.4) fL Immature Gran % (Auto) 0.2 (0.0-0.4) % Neut % (Auto) 80.7 H (45-73) % Lymph % (Auto) 12.4 L (20-40) % [place] % (Auto) 5.7 (2-11) % Eos % (Auto) 0.4 (0-4) % Baso % (Auto) 0.6 (0-2) % Lymph # (Auto) 1.1 L (1.2-4.9) X10*3/uL [place] # (Auto) 0.5 (0.1-1.2) X10*3/uL Eos # (Auto) 0.0 (0.0-0.4) X10*3/uL Baso # (Auto) 0.1 (0.0-0.2) X10*3/uL Abs Immat Gran (auto) 0.02 (0.00-0.03) X10*3/uL Absolute Neuts (auto) 6.8 (2.0-8.3) x10*3/uL Absolute Nucleated RBC 0.000 (0.0-0.012) X10*3/uL Nucleated RBC % (auto) 0.0 (0.0-0.2) /100WBC Sodium 139 (135-145) mmol/L Potassium 4.0 (3.3-5.1) mmol/L Chloride 107 (96-108) mmol/L Carbon Dioxide 23 (22-29) mmol/L Anion Gap 13 (12-20) BUN 14 (9-16) mg/dL Creatinine 1.05 (0.5-1.4) mg/dL Estim Creat Clear Calc 65.5 Estimated GFR > 60 POC Glucose 170 H (60-115) mg/dL Random Glucose 155 H (60-115) mg/dL Calcium 9.4 D (8.4-10.2) mg/dL Magnesium 2.1 (1.6-2.6) mg/dL Total Bilirubin 0.5 (0.0-1.0) mg/dL Direct Bilirubin 0.2 (0.0-0.5) mg/dL AST 20 (5-37) U/L ALT 13 (0-40) U/L Alkaline Phosphatase 66 (39-117) U/L Total Creatine Kinase 202 H (38-174) U/L Total Protein 7.7 (6.5-8.0) g/dL Albumin 3.9 (3.5-5.0) g/dL Urine Color Yellow Urine Appearance Clear Urine pH 6.5 (5.0-9.0) Ur Specific [place] 1.015 (1.005-1.025) Urine Protein 30 (1+) H (Neg-Trace) mg/dL Urine Glucose (UA) Negative (Negative) mg/dL Urine Ketones Trace (Negative) mg/dL Urine Blood Negative (Negative) Urine Nitrite Negative (Negative) Ur Leukocyte Esterase Negative (Negative) Urine RBC 0-2 (0-2) /HPF Urine WBC 6-10 H (0-5) /HPF Ur Squamous Epith Cells 3-5 (0-2) /HPF Urine Bacteria None Seen (None Seen) Hyaline Casts 3-5 (0-2) /LPF Urine Opiates Screen POSITIVE H (Not Detect) Ur Buprenorphine Scrn Positive H (Not Detect) ng/mL Ur Oxycodone Screen Not Detected (Not Detect) ng/mL Urine Methadone Screen Not Detected (Not Detect) ng/mL Urine Fentanyl Screen POSITIVE H (Not Detect) Ur Barbiturates Screen Not Detected (Not Detect) Ur Phencyclidine Scrn Not Detected (Not Detect) Ur Amphetamines Screen Not Detected (Not Detect) U Benzodiazepines Scrn Not Detected (Not Detect) Urine Cocaine Screen POSITIVE H (Not Detect) U Marijuana (THC) Screen POSITIVE H (Not Detect) Ethyl Alcohol < 10 mg/dL Independent Interpretation I performed an independent interpretation of an: EKG Interpretation: EKG at 19:59 shows normal sinus rhythm at 79 beats per minute. It is an unremarkable EKG Discharge Plan Discharge Clinical Impression: Opioid overdose Patient Disposition: Home, Self-Care Additional Instructions: Please be very careful with any drugs that you use. You may have had a significant overdose today. Please rest and take it easy. Drink lot of fluids. Please follow up soon with your regular doctor. Return to the emergency room at any time if you feel significantly worse. Prescriptions: No Action quetiapine 25 mg tablet 25 mg PO TID quetiapine 300 mg Tablet 300 mg PO BEDTIME clonazepam 0.5 mg Tablet 0.5 mg PO BID PRN (Reason: Anxiety) aspirin 81 mg tablet,delayed release (DR/EC) 81 mg PO DAILY tamsulosin [Flomax] 0.4 mg Capsule 0.4 mg PO BEDTIME lisinopril 10 mg tablet 10 mg PO DAILY gabapentin 300 mg Capsule 300 mg PO BEDTIME albuterol sulfate [ProAir HFA] 90 mcg/actuation Hfa Aerosol Inhaler 2 puff INHALATION Q4H PRN (Reason: Shortness Of Breath) buprenorphine-naloxone [Suboxone] 8-2 mg film 2 film sublingual DAILY olanzapine 10 mg Tablet 10 mg PO BEDTIME doxycycline monohydrate 100 mg tablet 100 mg PO BID Qty: 10 0RF Referrals: [facility] [Provider Group] (opioid overdose) Interventions: ED Discharge Assessment Last Done: 04/26/24 23:57 Discharge Date/Time: 04/26/24 23:58 Print Language: Irish
[2024-04-26 20:02] VITALS: BP 174/108; BP 200/78; PULSE 78; PULSE 90; RESP 14; TEMP 36.4; O2SAT 100; O2SAT 99; BMI 21.6
[2024-04-26 20:35] LABS: Glucose, Whole Blood 170 mg/dL (60-115)
[2024-04-26 20:36] LABS: Basophils Absolute Auto 0.1 X10*3/uL (0.0-0.2); Basophils Percent Auto 0.6 % (0-2); Eosinophils Percent Auto 0.4 % (0-4); Hematocrit 34.7 % (42.0-52.0); Hemoglobin 11.5 g/dl (14.0-18.0); Imm Gran Abs Auto 0.02 X10*3/uL (0.00-0.03); Imm Gran Pct Auto 0.2 % (0.0-0.4); Lymphocytes Absolute Auto 1.1 X10*3/uL (1.2-4.9); Lymphocytes Percent Auto 12.4 % (20-40); MANUAL DIFF FLAG NO; Mean Corpuscular HGB Conc 33.1 g/dl (31.0-36.0); Mean Corpuscular Volume 90.6 fL (80.0-98.0); Monocytes Absolute Auto 0.5 X10*3/uL (0.1-1.2); Monocytes Percent Auto 5.7 % (2-11); Neutrophils Absolute Auto 6.8 x10*3/uL (2.0-8.3); Neutrophils Percent Auto 80.7 % (45-73); Platelet Count 305 X10*3/uL (160-400); Red Blood Count 3.83 X10*6/uL (4.60-5.80); Red Cell Distribution Width 14.4 % (11.0-16.0); White Blood Count 8.4 X10*3/uL (4.8-10.8)
[2024-04-26 20:50] LABS: Ethanol < 10 mg/dL
[2024-04-26 20:53] LABS: Alanine Aminotransferase 13 U/L (0-40); Albumin Level 3.9 g/dL (3.5-5.0); Alkaline Phosphatase 66 U/L (39-117); Anion Gap 13 (12-20); Aspartate Amino Transferase 20 U/L (5-37); Bilirubin Direct 0.2 mg/dL (0.0-0.5); Bilirubin Total 0.5 mg/dL (0.0-1.0); Blood Urea Nitrogen 14 mg/dL (9-16); Calcium 9.4 mg/dL (8.4-10.2); Carbon Dioxide 23 mmol/L (22-29); Chloride 107 mmol/L (96-108); Creatinine Clr Calc Pharmacy 65.5; Estimated Glomerular Filt Rate > 60; Glucose Random 155 mg/dL (60-115); Magnesium 2.1 mg/dL (1.6-2.6); Sodium 139 mmol/L (135-145); Total Protein 7.7 g/dL (6.5-8.0)
[2024-04-26 23:02] VITALS: BP 131/73; PULSE 74; RESP 12; O2SAT 98
--- NOTE | 2024-04-26 23:30 | PC.NURSE ---
pr awake and alert, states he is ready to go home.
[2024-04-26 23:48] VITALS: BP 133/80; PULSE 73; RESP 16; O2SAT 97
[2024-04-26 23:50] LABS: Appearance Urine Clear; Color Urine Yellow; Glucose Urine UA Negative (Negative); Leukocyte Esterase Urine Negative (Negative); Nitrite Urine Negative (Negative); PH 6.5 (5.0-9.0); Specific Gravity - Urine 1.015 (1.005-1.025); UMIC TRIGGER UACC YES; Urine Blood Negative (Negative); Urine Ketones Trace mg/dL (Negative); Urine Protein 30 (1+) mg/dL (Neg-Trace)
[2024-04-26 23:53] LABS: Bacteria Urine None Seen (None Seen); RBC Urine 0-2 /HPF (0-2); UACC Culture Trigger YES
[2024-04-26 23:57] VITALS: BP 133/80; PULSE 73; RESP 18; TEMP 36.4; O2SAT 97
[2024-04-27 00:04] LABS: Amphetamine Screen Urine Not Detected (Not Detect); Barbiturates, Urine Not Detected (Not Detect); Benzodiazepines Screen Urine Not Detected (Not Detect); Buprenorphine Scr Positive (Not Detect); Cannabinoid Screen Urine POSITIVE (Not Detect); Cocaine Screen Urine POSITIVE (Not Detect); Fentanyl, urine POSITIVE (Not Detect); Methadone Screen, Urine Not Detected (Not Detect); Opiate Screen Urine POSITIVE (Not Detect); Oxycodone Screen Urine Not Detected (Not Detect); Phencyclidine Screen Urine Not Detected (Not Detect)
== END 2024-04-26 23:58 | disposition home or self-care (01) ==
PROVIDERS: Emergency Provider Emergency Medicine
DX: T40.1X1A Poisoning by heroin, accidental (unintentional), initial encounter (principal); Y92.410 Unspecified street and highway as the place of occurrence of the external cause; F11.10 Opioid abuse, uncomplicated; I16.0 Hypertensive urgency; R40.4 Transient alteration of awareness; Z79.899 Other long term (current) drug therapy
CPT/HCPCS: 36415; 80048; 80076; 80307; 81001; 82550; 82947; 83735; 85025; 87086; 93005; 99285

== ENCOUNTER → 2024-04-26 20:00 | Outpatient (BNV) | payer MEDICAID, SELFPAY | PROVIDERS: Emergency Provider Emergency Medicine; Visit Provider Internal Medicine Cardiovascular Disease | DX: F11.129 Opioid abuse with intoxication, unspecified (principal) | CPT/HCPCS: 93010 ==

== ENCOUNTER 2024-04-28 01:45 | Emergency (ER) | payer MEDICAID, SELFPAY ==
[2024-04-28 01:50] VITALS: BP 140/96; PULSE 80; O2SAT 98; BMI 28.3
[2024-04-28 01:51] VITALS: BP 141/80; PULSE 78; RESP 16; O2SAT 99
--- NOTE | 2024-04-28 01:55 | ED_ITS ---
HPI - Overdose General Chief Complaint: Overdose Stated Complaint: OD Source: patient, EMS and old records reviewed Mode of arrival: EMS Limitations: no limitations History of Present Illness ED Provider: RHONDA NASH Narrative: 58 yo male with PMH of bipolar disease, opiate use disorder, PTSD, here with c/o accidental overdose he denies SI, no trauma, remembers using and denies prolonged downtime he is alert and oriented and doesn't want any interventions. He does not want any interventions. 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) Context: Accidental Overdose: wanted to get high Treatments Prior to Arrival: narcan (8mg) Related Data Home Medications ?Medication ?Instructions ?Recorded ?Confirmed albuterol sulfate 90 mcg/actuation 2 puff inhalation Q4H PRN 02/25/24 02/25/24 aerosol inhaler (ProAir HFA) Shortness Of Breath aspirin 81 mg tablet,delayed 81 mg PO DAILY 02/25/24 02/25/24 release buprenorphine 8 mg-naloxone 2 mg 2 film sublingual DAILY 02/25/24 02/25/24 sublingual film (Suboxone) clonazepam 0.5 mg tablet 0.5 mg PO BID PRN Anxiety 02/25/24 02/25/24 gabapentin 300 mg capsule 300 mg PO BEDTIME 02/25/24 02/25/24 lisinopril 10 mg tablet 10 mg PO DAILY 02/25/24 02/25/24 olanzapine 10 mg tablet 10 mg PO BEDTIME 02/25/24 02/25/24 quetiapine 25 mg tablet 25 mg PO TID 02/25/24 02/25/24 quetiapine 300 mg tablet 300 mg PO BEDTIME 02/25/24 02/25/24 tamsulosin 0.4 mg capsule (Flomax) 0.4 mg PO BEDTIME 02/25/24 02/25/24 Previous Rx's ?Medication ?Instructions ?Recorded doxycycline monohydrate 100 mg 100 mg PO BID #10 tabs 02/27/24 tablet Allergies Allergy/AdvReac Type Severity Reaction Status Date / Time No Known Allergies Allergy Verified 04/28/24 01:52 Review of Systems Review of Systems: Constitutional : No Fever, No Chills, No Fatigue ENT/Mouth : No sore throat, No Rhinorrhea Eyes: No Eye Pain, No Swelling, No Redness Cardiovascular : No Chest Pain, No SOB, No Dyspnea on Exertion Respiratory : No Cough, No Sputum Gastrointestinal : No Nausea, No Vomiting, No Diarrhea, No abdominal Pain Genitourinary : No Dysuria, No Urinary Frequency, No Hematuria, Musculoskeletal : No joint pain, No Myalgias, No Joint Swelling Skin : No Skin Lesions, No rash Neuro : No Weakness, No Numbness, No Dizziness, no Headache Psych : No Anxiety/Panic, No Depression, no SI All other systems reviewed and are negative [facility] Past Medical History Attestation statement: The following information was validated with the patient. Source: old records reviewed Medical History Hepatitis C Polysubstance abuse Opioid use disorder Bipolar disease, chronic PVD (peripheral vascular disease) HTN (hypertension) Injection of illicit drug within last 12 months PTSD (post-traumatic stress disorder) Social History Social History Household Members: Spouse Housing: Apartment Do you presently have visiting nurse or other home services: No Patient Tobacco Use Status: Never used Tobacco Substance Use Type: Heroin and Marijuana service: No Physical Exam Vital Signs: Vital Signs: Last Vital Signs Pulse 78 04/28/24 01:51 Resp 16 04/28/24 01:51 BP 141/80 H 04/28/24 01:51 Pulse Ox 99 04/28/24 01:51 O2 Del Method Room Air 04/28/24 01:51 BMI result Body Mass Index 28.3 Appearance: Alert. Oriented X3. No acute distress. Eyes: Pupils equal, round and reactive to light. ENT: Pharynx normal. atraumatic Neck: Normal inspection. Neck supple. CVS: Normal heart rate and rhythm. Pulses normal. Respiratory: No respiratory distress. Breath sounds normal. Abdomen: Soft and nontender. Skin: Skin warm and dry. Normal skin color. Normal skin turgor. Extremities: No lower extremity edema. No calf ttp Neuro: Oriented X 3. No motor deficit. No sensory deficit. Medical Decision Making Medical Decision Making [facility] Narrative: 58 yo male with PMH of bipolar disease, opiate use disorder, PTSD, here with c/o using drugs then overdosed states he remembers using then bystander saw him unresponsive he was given 8mg narcan with good response - he denies SI. Does not want help on arrival and refuses to stay or go to detox. NO signs of trauma. Will monitor and if ready stable for DC by 330am pending no need for repeat narcan Differential Diagnosis Differential Diagnoses: The differential diagnosis associated with the presentation includes overdose, opiate use disorder Admission/Observation Consideration of admission/observation: Escalation of care including admissi on/observation considered will observe for any repeat overdose does not want detox or SUDE eval refuses labs or interventions will take NARCAN to go Independent Historian Clinical information obtained from an independent historian. History obtained from or confirmed by: EMS External Record Review External record reviewed: Inpatient record Prescription Management I considered prescription management with: Other Discharge Plan Discharge Clinical Impression: Opioid use disorder, Drug overdose Patient Disposition: Home, Self-Care Instructions: Adult Overdose (ED), Opioid Use Disorder (ED) Additional Instructions: carry narcan with you you refused all labs return if you have any worsening symptoms or concerns Prescriptions: No Action quetiapine 25 mg tablet 25 mg PO TID quetiapine 300 mg Tablet 300 mg PO BEDTIME clonazepam 0.5 mg Tablet 0.5 mg PO BID PRN (Reason: Anxiety) aspirin 81 mg tablet,delayed release (DR/EC) 81 mg PO DAILY tamsulosin [Flomax] 0.4 mg Capsule 0.4 mg PO BEDTIME lisinopril 10 mg tablet 10 mg PO DAILY gabapentin 300 mg Capsule 300 mg PO BEDTIME albuterol sulfate [ProAir HFA] 90 mcg/actuation Hfa Aerosol Inhaler 2 puff INHALATION Q4H PRN (Reason: Shortness Of Breath) buprenorphine-naloxone [Suboxone] 8-2 mg film 2 film sublingual DAILY olanzapine 10 mg Tablet 10 mg PO BEDTIME doxycycline monohydrate 100 mg tablet 100 mg PO BID Qty: 10 0RF Print Language: Citizen Of [place]
[2024-04-28] MEDS: Naloxone HCl Nasal TAKE HOME 4 MG SPRAY 8 MG NOSTRILALT (03:43)
[2024-04-28 03:50] VITALS: BP 130/70; PULSE 68; RESP 16; TEMP 36.6; O2SAT 99
--- NOTE | 2024-04-30 13:17 | MHC.RECOVRN ---
Attempted to call pt for post overdose follow up. Pts phone states there are calling restrictions which prevent the call from going through.
== END 2024-04-28 03:51 | disposition home or self-care (01) ==
PROVIDERS: Emergency Provider Emergency Medicine
DX: F11.90 Opioid use, unspecified, uncomplicated (principal); F19.10 Other psychoactive substance abuse, uncomplicated; T50.901A Poisoning by unspecified drugs, medicaments and biological substances, accidental (unintentional), initial encounter; R40.4 Transient alteration of awareness; Y92.410 Unspecified street and highway as the place of occurrence of the external cause; Z79.899 Other long term (current) drug therapy
CPT/HCPCS: 99283

== ENCOUNTER 2025-06-24 16:53 | Inpatient (IN) | payer OTHER, SELFPAY ==
--- OUTSIDE RECORDS SUMMARY | 2025-04-07 06:00 | XMS_ITS ---
Author Organization [facility] Address [address] [place] [id number] Care Team Providers Care Service Center Appraiser Name Role Phone [facility] Becky Unavailable [phone] Jael Garcia Unavailable [phone] REASON FOR VISIT Office; CPE Encounters Encounter Location Date Provider Diagnosis [address] [phone] 04/07/2025 Jael Garcia Plan Of Treatment Next Appt Details Provider Name:Kishanrickie stern, 07/05/2025 11:30:00 AM, [address] [place] [address], [phone], Progress Notes * Nathan FALLON RDOB:1965 ([age] yo M)Acc No.[id number]:04/07/2025 Progress Notes Patient: Nathan PATEL Provider: VERÓNICA Huffman :1965 A ge:59 Y S ex:Male Date:04/07/2025 Address:[address] [place], [place] [phone] Pcp:Garret Louis Subjective: * Chief Complaints: * 1 . Office; CPE. * Medical History: Objective: * Vitals: Assessment: Plan: * Treatment: * Images: Billing Information: * Visit Code: * Procedure Codes: Care Plan Details* * Electronic signature of Will denisza Jose on 06/24/2025 at 05:59 PM EDT Sign off status: Pending * Provider: VERÓNICA Huffman Date: 0 04/07/2025 Generated for Cori pal/Yemi/Yadira on: 0 06/24/2025 05:59 PM EDT
--- OUTSIDE RECORDS SUMMARY | 2025-06-20 09:01 | XMS_ITS ---
Author Organization [facility] Address [address] [place] [id number] Care Team Providers Care Desizing Machine Operator Name Role Phone [facility] Unavailable [phone] Jael Garcia Unavailable [phone] REASON FOR VISIT refill request Medications Medication SIG (Take, Route, Fr equency, Duration) Notes Start Date End Date Status Aspirin Low Dose 81 mg 1 tab(s) orally o nce a day for 90 days Active gabapentin 300 mg 1 cap(s) orally at b edtime for 30 days Active lisinopril 10 mg 1 tab(s) orally once a day for 90 days Active Encounters Encounter Location Date Provider Diagnosis [address] [phone] 06/20/2025 Jael Garcia Essential (primary) hypertension I10 and Polyneuropathy, unspecified G62.9 Assessments Encounter Date Diagnosis (ICD Code) Assessment Notes Treatment Notes Treatment Clinical Notes Section Notes 06/20/2025 Essential (primary) hypertension (ICD-10 - I10) 06/20/2025 Polyneuropathy, unspecified (ICD-10 - G62.9) Plan Of Treatment Medication Medication Name Sig Start Date Stop Date Notes Aspirin Low Dose 81 mg 1 tab(s) orally o nce a day for 90 days gabapentin 300 mg 1 cap(s) orally at b edtime for 30 days lisinopril 10 mg 1 tab(s) orally once a day for 90 days Next Appt Details Provider Name:Jael stern, 07/05/2025 11:30:00 AM, [address] [place] [address], [phone], Progress Notes * Nathan FALLON RDOB:1965 ([age] yo M)Acc No.[id number]:06/20/2025 Patient: Nathan PATEL :1965 A ge:59 Y S ex:Male Address:[address] [place] [id number] * Refills Refill lisinopril tablet, 10 mg, orally, 90, 1 tab(s), once a day, 90 days, Refills=0 Refill Aspirin Low Dose delayed release tablet, 81 mg, orally, 90, 1 tab(s), once a day, 90 days, Refills=0 Refill gabapentin capsule, 300 mg, orally, 30, 1 cap(s), at bedtime, 30 days, Refills=1 * true * Date: Generated for Cori pal/Yemi/Wayneitting on: 0 06/24/2025 05:59 PM EDT
--- OUTSIDE RECORDS SUMMARY | 2025-06-21 11:00 | XMS_ITS ---
Author Organization [facility] Address [address] [place] [address] Care Team Providers Care Licensed Veterinary Technician Name Role Phone [facility], [facility] Unavailable [phone] Jael Garcia Unavailable [phone] Allergies No Known Allergies REASON FOR VISIT Office: issues walking Medications Medication SIG (Take, Route, Frequency, Duration) Notes Start Date End Date Status lisinopril 10 mg 1 tab(s) orally once a day for 90 days Active Epclusa 400 mg-100 mg 1 tab(s) orally once a day 1 week left- started clean slate Not-Taking albuterol 90 mcg/inh 2 puff(s) inhaled every 6 hours Not-Taking sulfamethoxazole-tr imethoprim 800 mg-160 mg 1 tab(s) orally every 12 hours for 10 day(s) 06/21/2025 Active Aspirin Low Dose 81 mg 1 tab(s) orally once a day for 90 days Active cephalexin 500 mg 1 cap(s) orally three times a day Not-Taking bacitracin topical 500 units/g 1 alvin applied topically 2 times a day Not-Taking gabapentin 300 mg 1 cap(s) orally at bedtime for 30 days Active Bactrim DS 800 mg-160 mg 1 tab(s) orally every 12 hours Not-Taking Suboxone 8 mg-2 mg 2 film(s) sublingually once a day clean slate Active KlonoPIN 0.5 mg 1 tab(s) orally twice a day Active Seroquel 300 mg 1 tab(s) orally at bedtime Active ferrous sulfate 325 mg 1 tab(s) orally once a day Active benztropine 0.5 mg 1 tab(s) orally twice a day Active haloperidol 5 mg 1 tab(s) orally 2 times a day Active ibuprofen 400 mg 1 tab(s) orally every 4 hours As needed Active tamsulosin 0.4 mg 1 cap(s) orally at bedtime Active QUEtiapine 25 mg 1 tab(s) orally every 4 hours As needed Active Vital Signs Temperature 97.7 degrees Fahrenheit 06/21/20 25 Height 65 in 06/21/2025 Weight 117.0 lbs 06/21/2025 BMI 19.47 kg/m2 06/21/2025 Oximetry 96 06/21/2025 Blood pressure systolic 133 06/21/20 25 Blood pressure diastolic 79 025 Encounters Encounter Location Date Provider Diagnosis [address] [id number] 06/21/2025 Jael Garcia Cutaneous abscess of left lower limb L02.416 ; Sheltered homelessness Z59.01 and Essential (primary) hypertension I10 Assessments Encounter Date Diagnosis (ICD Code) Assessment Notes Treatment Notes Treatment Clinical Notes Section Notes 06/21/2025 Cutaneous abscess of left lower limb (ICD-10 - L02.416) 06/21/2025 Sheltered homelessness (ICD-10 - Z59.01) 06/21/2025 Essential (primary) hypertension (ICD-10 - I10) Plan Of Treatment Medication Medication Name Sig Start Date Stop Date Notes lisinopril 10 mg 1 tab(s) orally once a day for 90 days sulfamethoxazole-trimethopri m 800 mg-160 mg 1 tab(s) orally every 12 hours for 10 day(s) 06/21/2025 Aspirin Low Dose 81 mg 1 tab(s) orally o nce a day for 90 days Pending Test Test Name Order Date WOUND CULTURE 06/21/2025 Next Appt Details Provider Name:Jael stern, 07/05/2025 11:30:00 AM, [address] [place] [address], [id number], Progress Notes * Nathan FALLON RDOB:1965 ([age] yo M)Acc No.[id number]:06/21/2025 Progress Notes Patient: Nathan PATEL Provider: VERÓNICA Huffman :1965 A ge:59 Y S ex:Male Date:06/21/2025 Address:[address] [place] [address] [id number] Pcp:Garret Louis Subjective: * Chief Complaints: * 1 . Office: issues walking. * HPI: G eneral: Symptom Screen: - Fever in the last 1 week? Patient denies - New or worsening cough in the last 1 week? Patient denies. - Contact will known COVID exposure in last 5 days? Patient denies -new rash within last 3 weeks? Patient denies RN/MA:LF: L leg issue to walk, he said a insect bit him - Have you received the COVID-19 vaccine? yes - Have you received COVID-19 booster? yes - Have you been tested positive for COVID -19 in the last 7 days? If so where and why? no. -SYSTEM SUPPORT SPECIALIST: 58 y/o male with history of HTN, HCV with ongoing treatment and opioid use on remission, presents for lab f/u today. -He denies chest pain. 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 - TB treatment -1994 treatment Last dental visit:denies Last eye exam:needs eyeglasses needed - referred to [facility] and Lasik but did not show,They discharged him family Hx Colon CA?denies. 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 * Medications: T aking tamsulosin 0.4 mg capsule 1 cap(s) orally at bedtime , Taking QUEtiapine 25 mg tablet 1 tab(s) orally every 4 hours As needed, Taking ibuprofen 400 mg tablet 1 tab(s) orally every 4 hours As needed, Taking haloperidol 5 mg tablet 1 tab(s) orally 2 times a day , Taking ferrous sulfate 325 mg tablet 1 tab(s) orally once a day , Taking benztropine 0.5 mg tablet 1 tab(s) orally twice a day , Taking KlonoPIN 0.5 mg tablet 1 tab(s) orally twice a day , Taking Seroquel 300 mg tablet 1 tab(s) orally at bedtime , Taking Suboxone 8 mg-2 mg film 2 film(s) sublingually once a day , Notes to Pharmacist: clean slate, Taking lisinopril 10 mg tablet 1 tab(s) orally once a day , Taking Aspirin Low Dose 81 mg delayed release tablet 1 tab(s) orally once a day , Taking gabapentin 300 mg capsule 1 cap(s) orally at bedtime , Not-Taking/PRN Bactrim DS 800 mg-160 mg tablet 1 tab(s) orally every 12 hours , Not-Taking/PRN cephalexin 500 mg capsule 1 cap(s) orally three times a day , Not-Taking/PRN bacitracin topical 500 units/g ointment 1 alvin applied topically 2 times a day , Not-Taking/PRN Epclusa 400 mg-100 mg tablet 1 tab(s) orally once a day , Notes to Pharmacist: 1 week left- started clean slate, Not-Taking/PRN albuterol 90 mcg/inh aerosol 2 puff(s) inhaled every 6 hours , Medication List reviewed and reconciled with the patient * Allergies: N .K.D.A. Objective: * Vitals: B P Generic: 133/79, Ht: 65, Wt: 117.0, BMI:19.47, HR: 64, Oxygen sat %: 96, Temp: 97.7. Assessment: * Assessment: 1. C utaneous abscess of left lower limb - L02.416 (Primary) 2 . S heltered homelessness - Z59.01 3 . E ssential (primary) hypertension - I10 ? Plan: * Treatment: 2. E ssential (primary) hypertension Refill lisinopril tablet, 10 mg, 1 tab(s), orally, once a day, 90 days, 90, Refills 0; R efill Aspirin Low Dose delayed release tablet, 81 mg, 1 tab(s), orally, once a day, 90 days, 90, Refills 0. * Images: Billing Information: * Visit Code: * Procedure Codes: Care Plan Details* * Electronic signature of Will hill Jose on 06/24/2025 at 05:59 PM EDT Sign off status: Pending * Provider: Margy Garcia NP-C Date: 0 06/21/2025 Generated for Cori pla/Yemi/eTamara on: 0 06/24/2025 05:59 PM EDT History and Physical Notes * HPI (History of Present Illness) Category Sub-Category Detail Notes Category Not es General -SYSTEM SUPPORT SPECIALIST: 58 y/o male with history of HTN, HCV with ongoing treatment and opioid use on remission, presents for lab f/u today. -He denies chest pain. 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 - TB treatment -1994 treatment Last dental visit:denies Last eye exam:needs eyeglasses needed - referred to [facility] and [facility]ik but did not show,They discharged him family Hx Colon CA?denies
--- OUTSIDE RECORDS SUMMARY | 2025-06-24 10:46 | XMS_ITS | Encounter Summary ---
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 [facility] - 06/24/2025 12:46 PM EDT Assay cutoff 5 ng/mL Semi-quantitative assay for screening purposes only. Unconfirmed screening result should not be used for non-medical purposes. *ALTERNATE METHOD CONFIRMATION DONE UPON REQUEST ONLY* Jhonatan Wyatt MD LAB URINE ORDERABLES Final Res ult Performing Organization Address [facility] Co de Phone Number [facility] [address] [place] [address], * (ABNORMAL) Drug abuse screen 8a panel, urine (06/24/2025 11:14 AM EDT) [facility] Amphetamine Screen, Ur Negative Negative LAB CHEMISTRY METHOD 5 1:11 PM EDT [facility] Comment:Certain OTC medicati ons containing ephedrine, phenylephrine, pseudoephedrine and phenylpropanolamine can cause false positive results. Barbiturate Screen, Ur Negative Negative LAB CHEMISTRY METHOD 5 1:11 PM EDT [facility] Benzodiazepine Screen, Ur Negative Negative LAB CHEMISTRY METHOD 5 1:11 PM EDT [facility] Cocaine Screen, Ur Positive(A ) Negative LAB CHEMISTRY METHOD 5 1:11 PM EDT [facility] Opiate Screen, Ur Negative Negative LAB CHEMISTRY METHOD 5 1:11 PM EDT [facility] Cannabinoid (THC) Screen, Ur Positive(A ) Negative LAB CHEMISTRY METHOD 1:11 PM EDT [facility] Comment:Specimens from patie nts taking pantoprazole sodium (Protonix) have been shown to produce false positive results. Oxycodone Screen, Ur Negative Negative LAB CHEMISTRY METHOD 5 1:11 PM EDT [facility] Fentanyl, Ur Positive(A ) Negative LAB CHEMISTRY METHOD 1:11 PM EDT [facility] Urine Urine specimen obtained by clean catch procedure / Unknown Non-blood Collection / Unknown 06/24/2025 11:14 AM EDT 06/24/2025 12:15 PM EDT Narrative [facility] - 06/24/2025 1:11 PM EDT Assay cutoffs: Amphetamines 1000 ng/mL Barbiturates 200 ng/mL Benzodiazepines 200 ng/mL Cocaine 300 ng/mL Fentanyl 1 ng/mL Opiates 300 ng/mL Oxycodone 100 ng/mL THC 50 ng/mL Semi-quantitative assay for screening purposes only. Unconfirmed screening result should not be used for non-medical purposes. *ALTERNATE METHOD CONFIRMATION DONE UPON REQUEST ONLY* Jhonatan Wyatt MD LAB URINE ORDERABLES Final Res ult [facility] [address] [place] [address], * (ABNORMAL) CBC auto differential (06/24/2025 11:05 AM EDT) WBC 7.7 4.8 - 10.8 K/[facility] LAB HEMETOLOGY METHOD 06/24/2025 11:22 AM EDT [facility] RBC 3.60(L) 4.50 - 5.50 M/[facility] LAB HEMETOLOGY METHOD 06/24/2025 11:22 AM [facility] Hemoglobin 11.0(L) 13.5 - 17.5 g/dL LAB HEMETOLOGY METHOD 06/24/2025 11:22 AM [facility] Hematocrit 33.4(L) 42.0 - 54.0 % LAB HEMETOLOGY METHOD 06/24/2025 11:22 AM [facility] MCV 92.5 79.0 - 98.0 FL LAB HEMETOLOGY METHOD 06/24/2025 11:22 AM [facility] MCH 30.5 27.0 - 32.0 pcg LAB HEMETOLOGY METHOD 06/24/2025 11:22 AM [facility] MCHC 32.9 32.0 - 37.0 g/dL LAB HEMETOLOGY METHOD 06/24/2025 11:22 AM [facility] RDW 14.2 11.0 - 15.0 % LAB HEMETOLOGY METHOD 06/24/2025 11:22 AM [facility] Platelets 318 130 - 400 K/mcL LAB HEMETOLOGY METHOD 06/24/2025 11:22 AM [facility] MPV 9.9 7.0 - 11.0 FL LAB HEMETOLOGY METHOD 06/24/2025 11:22 AM [facility] NRBC 0.0 <1.0 % LAB HEMETOLOGY METHOD 06/24/2025 11:22 AM [facility] NRBC Absolute 0.00 <0.10 K/mcL LAB HEMETOLOGY METHOD 06/24/2025 11:22 AM [facility] Neutrophils Relative 66.0 % LAB HEMETOLOGY METHOD 06/24/2025 11:22 AM [facility] Lymphocytes Relative 18.4 % LAB HEMETOLOGY METHOD 06/24/2025 11:22 AM [facility] Monocytes Relative 10.8 % LAB HEMETOLOGY METHOD 06/24/2025 11:22 AM EDT [facility] Eosinophils Relative 3.6 % LAB HEMETOLOGY METHOD 06/24/2025 11:22 AM [facility] Basophils Relative 0.8 % LAB HEMETOLOGY METHOD 06/24/2025 11:22 AM [facility] Immature Granulocytes Relative 0.4 % LAB HEMETOLOGY METHOD 06/24/2025 11:22 AM [facility] Neutrophils Absolute 5.08 1.50 - 7.00 K/mcL LAB HEMETOLOGY METHOD 06/24/2025 11:22 AM [facility] Lymphocytes Absolute 1.42 1.00 - 5.00 K/mcL LAB HEMETOLOGY METHOD 06/24/2025 11:22 AM [facility] Monocytes Absolute 0.83 0.20 - 1.00 K/mcL LAB HEMETOLOGY METHOD 06/24/2025 11:22 AM [facility] Eosinophils Absolute 0.28 0.00 - 0.50 K/mcL LAB HEMETOLOGY METHOD 06/24/2025 11:22 AM [facility] Basophils Absolute 0.06 0.00 - 0.20 K/mcL LAB HEMETOLOGY METHOD 06/24/2025 11:22 AM [facility] Immature Granulocytes Absolute 0.03 0.00 - 0.03 K/mcL LAB HEMETOLOGY METHOD 06/24/2025 11:22 AM [facility] Blood Venous blood specimen / Unknown Venipuncture / Unknown 06/24/2025 11:05 AM EDT 06/24/2025 11:13 AM EDT us Jhonatan Wyatt MD LAB BLOOD ORDERABLES Final Res ult [facility] [address] [place] [address], [place] [phone] * Salicylate level (06/24/2025 11:05 AM EDT) Salicylate Level 3.8 2.0 - 29.0 mg/dL LAB CHEMISTRY METHOD 06/24/2025 11:59 AM EDT [facility] Comment:Results verified by repeat testing Blood Venous blood specimen / Unknown Venipuncture / Unknown 06/24/2025 11:05 AM EDT 06/24/2025 11:13 AM EDT us Jhonatan Wyatt MD LAB BLOOD ORDERABLES Final Res ult Performing Organization Address [facility]/ZIP Co de Phone Number [facility] [address] [place] [address], [place] [phone] * (ABNORMAL) Acetaminophen level (06/24/2025 11:05 AM EDT) Acetaminophen Level <2.0(L) 10.0 - 30.0 mcg/mL LAB CHEMISTRY METHOD 06/24/2025 11:48 AM EDT [facility] Blood Venous blood specimen / Unknown Venipuncture / Unknown 06/24/2025 11:05 AM EDT 06/24/2025 11:13 AM EDT us Jhonatan Wyatt MD LAB BLOOD ORDERABLES Final Res ult [facility] [address] [place] [address], [place] [phone] * Ethanol (06/24/2025 11:05 AM EDT) Ethanol Level <3 0 - 10 mg/dL LAB CHEMISTRY METHOD 06/24/2025 11:48 AM EDT [facility] Blood Venous blood specimen / Unknown Venipuncture / Unknown 06/24/2025 11:05 AM EDT 06/24/2025 11:13 AM EDT us Jhonatan Wyatt MD LAB BLOOD ORDERABLES Final Res ult [facility] [address] [place] [address], [place] [phone] * Comprehensive metabolic panel (06/24/2025 11:05 AM EDT) Sodium 136 133 - 145 mmol/L LAB CHEMISTRY METHOD 06/24/2025 11:51 AM [facility] Potassium 4.8 3.5 - 5.5 mmol/L LAB CHEMISTRY METHOD 06/24/2025 11:51 AM [facility] Chloride 105 96 - 110 mmol/L LAB CHEMISTRY METHOD 06/24/2025 11:51 AM [facility] CO2 25 21 - 32 mmol/L LAB CHEMISTRY METHOD 06/24/2025 11:51 AM [facility] Anion Gap 6 3 - 11 LAB CHEMISTRY METHOD 06/24/2025 11:51 AM [facility] Glucose 91 70 - 100 mg/dL LAB CHEMISTRY METHOD 06/24/2025 11:51 AM [facility] BUN 25 5 - 25 mg/dL LAB CHEMISTRY METHOD 06/24/2025 11:51 AM [facility] Creatinine 1.15 0.70 - 1.30 mg/dL LAB CHEMISTRY METHOD 06/24/2025 11:51 AM [facility] eGFR 74 >=60 mL/min/1. 73m2 LAB CHEMISTRY METHOD 06/24/2025 11:51 AM [facility] Comment:Calculation based on the Chronic Kidney Disease Epidemiology Collaboration (CKD-EPI) equation refit without adjustment for race. BUN/Creatinine Ratio 21.7 LAB CHEMISTRY METHOD 06/24/2025 11:51 [facility] Calcium 8.5 8.5 - 10.5 mg/dL LAB CHEMISTRY METHOD 06/24/2025 11:51 AM [facility] AST (SGOT) 25 10 - 42 unit/L LAB CHEMISTRY METHOD 06/24/2025 11:51 AM [facility] ALT (SGPT) 23 10 - 60 unit/L LAB CHEMISTRY METHOD 06/24/2025 11:51 AM [facility] Alkaline Phosphatase 65 42 - 121 unit/L LAB CHEMISTRY METHOD 06/24/2025 11:51 AM [facility] Total Protein 6.8 6.0 - 8.0 g/dL LAB CHEMISTRY METHOD 06/24/2025 11:51 AM [facility] Albumin 3.2 3.2 - 5.0 g/dL LAB CHEMISTRY METHOD 06/24/2025 11:51 AM [facility] Total Bilirubin 0.3 0.0 - 1.4 mg/dL LAB CHEMISTRY METHOD 06/24/2025 11:51 AM [facility] Blood Venous blood specimen / Unknown Venipuncture / Unknown 06/24/2025 11:05 AM EDT 06/24/2025 11:13 AM EDT us Jhonatan Wyatt MD LAB BLOOD ORDERABLES Final Res ult [facility] [address] [place] [address], documented in this encounter Visit Diagnoses Diagnosis Auditory hallucination- Primary Hallucinations Suicidal ideation documented in this encounter Administered Medications Active Administered Medications - up to 3 most recent administrations Medication Order MAR Action Action Date Dose Rate Site benztropine (COGENTIN) tablet 0.5 mg 0.5 mg, oral, 2 times daily, First dose on Fri06/24/25 at 1356 Given 06/24/2025 2:10 PM EDT 0.5 mg buprenorphine-naloxone (SUBOXONE) 8-2 mg per SL tablet 1 tablet 1 tablet, sublingual, 2 times daily, First dose on Fri06/24/25 at 1356, - After the medication is completely dissolved, instruct the patient to take a large sip of water, swish it around teeth and gums, and swallow. - Patient should wait at least 1 hour before brushing teeth to avoid damage to their teeth. Given 06/24/2025 2:10 PM EDT 1 tablet QUEtiapine (SEROquel) tablet 25 mg 25 mg, oral, 2 times daily, First dose on Fri06/24/25 at 1356 Given 06/24/2025 2:10 PM EDT 25 mg documented in this encounter Historical Medications * This list may reflect changes made after this encounter. sulfamethoxazole- trimethoprim (BACTRIM DS,SEPTRA DS) 800-160 mg per tabletIndications :Skin infection left knee Take 1 tablet by mouth 1 (one) time each day. 06/21/2025 06/30/2025 added in this encounter Active and Recently Administered Medications Times are shown in EDT. Scheduled Medication Order 06/22/2025 06/23/2025 06/24/2025 aspirin EC tablet 81 mg 81 mg, oral, Daily, First dose on Fri06/25/25 at 0900, Do not crush, chew, or split. benztropine (COGENTIN) tablet 0.5 mg 0.5 mg, oral, 2 times daily, First dose on Fri06/24/25 at 1356 1410 (Given - Provid er: Fernando Vera RN)2100 (Due) buprenorphine-naloxone (SUBOXONE) 8-2 mg per SL tablet 1 tablet 1 tablet, sublingual, 2 times daily, First dose on Fri06/24/25 at 1356, - After the medication is completely dissolved, instruct the patient to take a large sip of water, swish it around teeth and gums, and swallow. - Patient should wait at least 1 hour before brushing teeth to avoid damage to their teeth. 1410 (Given - Provid er: Fernando Vera RN)2100 (Due) gabapentin (NEURONTIN) capsule 300 mg 300 mg, oral, Nightly, First dose on 06/25/25 at 2100 lisinopriL (PRINIVIL,ZESTRIL) tablet 10 mg 10 mg, oral, Daily, First dose on Fri06/25/25 at 0900 QUEtiapine (SEROquel) tablet 25 mg 25 mg, oral, 2 times daily, First dose on Fri06/24/25 at 1356 1410 (Given - Provid er: Fernando Vera RN)2100 (Due) QUEtiapine (SEROquel) tablet 400 mg 400 mg, oral, Nightly, First dose on Fri06/25/25 at 2100 sulfamethoxazole-trimethoprim (BACTRIM DS,SEPTRA DS) 800-160 mg per tablet 1 tablet 1 tablet, oral, Daily, First dose on Fri06/25/25 at 0900, For 5 days, Indication: Skin/Soft Tissue, Indications: Skin infection left knee PRN Medication Order 06/22/2025 06/23/2025 06/24/2025 albuterol 2.5 mg /3 mL (0.083 %) nebulizer solution 2.5 mg 2.5 mg, nebulization, Every 4 hours PRN, wheezing, Starting on Fri06/24/25 at 1354 clonazePAM (KlonoPIN) tablet 0.5 mg 0.5 mg, oral, 2 times daily PRN, anxiety, Starting on Fri06/24/25 at 1353, Hazardous Medication Intact: - Single pair of ASTM standard [id number] certified gloves - Eye/face protection if vomit or potential to spit up Manipulated: - Double pair of ASTM standard [id number] certified gloves - Eye/face protection if vomit or potential to spit up - Staff at reproductive risk must also wear a hazardous gown - Crushing must be performed in sealed closed pouch - Splitting/cutting should be performed by pharmacy, if possible documented in this encounter Orders Medications Ordered That Herminio ht Not Have Been Administered Count Last Ordered Date First Ordered Date albuterol 2.5 mg /3 mL (0.08 3 %) nebulizer solution 2.5 mg 1 06/24/2025 aspirin EC tablet 81 mg 1 06/24/2025 clonazePAM (KlonoPIN) tablet 0.5 mg 1 06/24 gabapentin (NEURONTIN) capsule 300 mg 1 09/2025 lisinopriL (PRINIVIL,ZESTRIL) tablet 10 mg 1 06/24/2025 QUEtiapine (SEROquel) tablet 400 mg 1 06/24 sulfamethoxazole-trimethopri m (BACTRIM DS,SEPTRA DS) 800-160 mg per tablet 1 tablet 1 06/24/2025 Diet Count Last Ordered Date First Orde red Date ADULT DIET 1 06/24/2025 Consult Count Last Ordered Date First Orde red Date 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
[2025-06-24 17:08] VITALS: BP 113/58; PULSE 67; RESP 18; TEMP 36.5; O2SAT 97
[2025-06-24 17:19] VITALS: BMI 19.1
--- OUTSIDE RECORDS SUMMARY | 2025-06-24 17:59 | XMS_ITS | Clinical Summary ---
Author Organization [facility] Address [address] [place] [address] Phone Care Team Providers Care Lead Clinical Research Coordinator Name Role Phone Luis A Das MD Primary Care Provider [phone] Allergies No known active allergies Medications lisinopriL (PRINIVIL,ZESTR IL) 10 mg tablet Take 1 tablet (10 mg total) by mouth 1 (one) time each day. for 90 days Active gabapentin (NEURONTIN) 300 mg capsule Take 1 capsule (300 mg total) by mouth at bedtime. at bedtime last picked up in Active clonazePAM (KlonoPIN) 0.5 mg tablet Take 1 tablet (0.5 mg total) by mouth 2 (two) times a day if needed for anxiety. Active Suboxone 8-2 mg per SL film Place 1 film under the tongue 2 (two) times a day. Active aspirin 81 mg EC tablet Take 1 tablet (81 mg total) by mouth 1 (one) time each day. for 90 days Active Ventolin HFA 90 mcg/actuation inhaler Inhale 2 puffs by mouth Every 4 hours as needed. 08/16/2019 Active QUEtiapine (SEROquel) 100 mg tablet Take 4 tablets (400 mg total) by mouth at bedtime. Active QUEtiapine (SeroqueL) 25 mg tablet Take 1 tablet (25 mg total) by mouth 2 (two) times a day. 07/17/2020 Active benztropine (COGENTIN) 0.5 mg tablet Take 1 tablet (0.5 mg total) by mouth 2 (two) times a day. Active sulfamethoxazol e-trimethoprim (BACTRIM DS,SEPTRA DS) 800-160 mg per tabletIndicatio ns:Skin infection left knee Take 1 tablet by mouth 1 (one) time each day. 06/21/2025 Active Encounters Date Type Department Care Team Description 06/24/2025 10:46 AM EDT - 06/24/2025 4:[address] [facility] Emergency [address] [place] [address] Jhonatan Wyatt MD Auditory hallucination (Primary Dx); Suicidal ideation Discharge Disposition: Home or Self Care 06/21/2025 Lab Requisition [facility] - Main Lab [address] [facility] [place] [address] Jael Garcia NP Cutaneous abscess of left lower limb 05/15/2025 1:57 PM EDT - 05/15/2025 3:[address] [facility] Emergency [address] [place] [address] Barbara Arce MD Contusion of right chest wall, initial encounter (Primary Dx) Discharge Disposition: Home or Self Care from Last 3 Months Medical History Medical History Date Comments Hypertension Social History Tobacco Use Types Packs/Day Years Used Date Smoking Tobacco: Never Smokeless Tobacco: Never Tobacco Cessation:Counseling Given: Not Answered Sex and Gender Information Value Date Recorded Sex Assigned at Male 11/14/2024 7:16 PM EST Legal Sex Male 11:40 PM EST Gender Identity Male 11/14/2024 7:16 PM EST Sexual Orientation Straight 11/14/2024 7: 16 PM EST Obstetrics History Last Filed Vital Signs Vital Sign Reading [...] Mass Index 19.97 06/24/2025 11:12 AM EDT Plan of Treatment Health Maintenance Due Date Last Done Comments Hepatitis A Vaccines (1 of 2 - Risk 2-dose series) 1986 Hepatitis B Vaccines (2 of 3 - 19+ 3-dose series) 08/26/2018 07/29/2018 DTaP,Tdap,and Td Vaccines (2 - Td or Tdap) 06/03/2021 06/03/2011 Colorectal Cancer Screening: Colonoscopy 09/15/2022 HIV Screening 09/15/2022 Hepatitis C Screening 09/15/2022 Social Influencers of Health Screening 09/15/2022 Zoster Vaccines (2 of 2) 07/07/2024 05/12/2024 Depression Screening 10/13/2024 COVID-19 Vaccine ( - season) 2025 2022, 11/07/2021, 02/28/2021 Influenza Vaccine (#1) 2025 07/09/2017 Hypertension/CHF/CAD Annual BMP Blood Test 06/24/2026 06/24/2025, 12/08/2024, 11/14/2024, Additional history exists Cholesterol Screening (Lipid Panel) 03/12/2028 03/12/2023, 03/12/2023, 03/08/2022, Additional history exists Pneumococcal Vaccine: 50+ Years Completed 05/12/2024, 04/17/2017 HIB Vaccines Aged Out No longer eligi ble based on patient's age to complete this topic HPV Vaccines Aged Out No longer eligi ble based on patient's age to complete this topic IPV Vaccines Aged Out No longer eligi ble based on patient's age to complete this topic MMR Vaccines Aged Out No longer eligi ble based on patient's age to complete this topic Meningococcal ACWY Vaccine Aged Out N o longer eligible based on patient's age to complete this topic Meningococcal B Vaccine Aged Out No l onger eligible based on patient's age to complete this topic RSV Immunization Patients Under 20 months Aged Out No longer eligible based on patient's age to complete this topic Varicella Vaccines Aged Out No longer eligible based on patient's age to complete this topic Procedures Procedure Name Priority Date/Time Associated Diagnosis Comments ECG 12-LEAD Routine 06/24/2025 3:40 PM EDT TIGER TOP URINE TUBE Routine 06/24/2025 11:15 AM EDT EXTRA TUBES Routine 06/24/2025 11:15 AM EDT METHADONE SCREEN, URINE STAT 06/24/2025 11:14 AM EDT PHENCYCLIDINE, URINE STAT 06/24/2025 11:14 AM EDT BUPRENORPHINE SCREEN, URINE STAT 06/24/2025 11:14 AM EDT DRUG ABUSE SCREEN 8A PANEL, URINE STAT 06/24/2025 11:14 AM EDT CBC WITH AUTO DIFFERENTIAL STAT 06/24/2025 11:05 AM EDT SALICYLATE LEVEL STAT 06/24/2025 11:0 5 AM EDT ACETAMINOPHEN LEVEL STAT 06/24/2025 1 1:05 AM EDT ETHANOL STAT 06/24/2025 11:05 AM EDT COMPREHENSIVE METABOLIC PANEL STAT 06/24/2025 11:05 AM EDT CBC AND DIFFERENTIAL STAT 06/24/2025 11:05 AM EDT CULTURE WOUND DEEP Routine 06/21/2025 3: 22 PM EDT Cutaneous abscess of left lower limb XR RIBS W CHEST 3+ VIEWS RIGHT STAT 05/15/2025 2:29 PM EDT from Last 3 Months Results * ECG 12 lead (06/24/2025 3:40 PM EDT) Ventricular Rate ECG 60 BPM GEMUSE Atrial Rate 60 BPM GEMUSE P-R Interval 90 ms GEMUSE QRS Duration 82 ms GEMUSE Q-T Interval 396 ms GEMUSE QTc 396 ms GEMUSE P Wave Mccormick 85 degrees GEMUSE R Mccormick 88 degrees GEMUSE T Mccormick 72 degrees GEMUSE ECG Interpretation Sinus rhythm with short [place] Otherwise normal ECG When compared with ECG of 08-DEC-2024 18:19, No significant change was found Confirmed by MD DUKES JOHN ([id number]) on 06/24/2025 4:51:04 PM GEMUSE 06/24/2025 3:40 PM EDT 06/24/2025 4:51 PM EDT Jhonatan Wyatt MD ECG ORDERABLES Final Result GEMUSE * Callaway top urine tube (06/24/2025 11:15 AM EDT) Extra Tube Hold for add-ons. 06/24/2025 2:01 PM EDT [facility] Comment:Auto resulted. Urine Urine specimen obtained by clean catch procedure / Unknown 06/24/2025 11:15 AM EDT 06/24/2025 12:16 PM EDT Andra MONTERROSO LAB URINE ORDERABLES F inal Result [facility] [address] [place] [address], [place] [phone] * (ABNORMAL) Drug abuse screen 8a panel, urine (06/24/2025 11:14 AM EDT) Amphetamine Screen, Ur Negative Negative LAB CHEMISTRY METHOD 1:11 PM EDT [facility] Comment:Certain OTC medicati ons containing ephedrine, phenylephrine, pseudoephedrine and phenylpropanolamine can cause false positive results. Barbiturate Screen, Ur Negative Negative LAB CHEMISTRY METHOD 1:11 PM EDT [facility] Benzodiazepine Screen, Ur Negative Negative LAB CHEMISTRY METHOD 5 1:11 PM EDT [facility] Cocaine Screen, Ur Positive(A ) Negative LAB CHEMISTRY METHOD 5 1:11 PM EDT [facility] Opiate Screen, Ur Negative Negative LAB CHEMISTRY METHOD 5 1:11 PM EDT [facility] Cannabinoid (THC) Screen, Ur Positive(A ) Negative LAB CHEMISTRY METHOD 5 1:11 PM EDT [facility] Comment:Specimens from patie nts taking pantoprazole sodium (Protonix) have been shown to produce false positive results. Oxycodone Screen, Ur Negative Negative LAB CHEMISTRY METHOD 5 1:11 PM EDT [facility] Fentanyl, Ur Positive(A ) Negative LAB CHEMISTRY METHOD 5 1:11 PM T [facility] Urine Urine specimen obtained by clean catch procedure / Unknown Non-blood Collection / Unknown 06/24/2025 11:14 AM EDT 06/24/2025 12:15 PM EDT Narrative [facility] - 06/24/2025 1:11 PM EDT Assay cutoffs: Amphetamines 1000 ng/mL Barbiturates 200 ng/mL Benzodiazepines 200 ng/mL Cocaine 300 ng/mL Fentanyl 1 ng/mL Opiates 300 ng/mL Oxycodone 100 ng/mL THC 50 ng/mL Semi-quantitative assay for screening purposes only. Unconfirmed screening result should not be used for non-medical purposes. *ALTERNATE METHOD CONFIRMATION DONE UPON REQUEST ONLY* us Jhonatan Wyatt MD LAB URINE ORDERABLES Final Res ult [facility] [address] [place] [address], * (ABNORMAL) Buprenorphine screen, urine (06/24/2025 11:14 AM EDT) Buprenorphine Screen Urine Positive (A) Negative LAB CHEMISTRY METHOD 06/24/2025 12:46 PM EDT [facility] Urine Urine specimen obtained by clean catch procedure / Unknown Non-blood Collection / Unknown 06/24/2025 11:14 AM EDT 06/24/2025 12:15 PM EDT Narrative [facility] - 06/24/2025 12:46 PM EDT Assay cutoff 5 ng/mL Semi-quantitative assay for screening purposes only. Unconfirmed screening result should not be used for non-medical purposes. *ALTERNATE METHOD CONFIRMATION DONE UPON REQUEST ONLY* us Jhonatan Waytt MD LAB URINE ORDERABLES Final Res ult Performing Organization Address [facility] Co de Phone Number [facility] [address] [place] [address], [place] [phone] * Methadone, urine (06/24/2025 11:14 AM EDT) Methadone Screen, Urine Negative Negative LAB CHEMISTRY METHOD 06/24/2025 12:46 PM EDT [facility] Comment: Assay cutoff 300 ng/mL [...] ORDERABLES Final Res ult Performing Organization Address City/[facility]/ZIP Co de Phone Number [facility] [address] [place] [address], [place] [phone] * Phencyclidine, urine (06/24/2025 11:14 AM EDT) PCP Scrn, Ur Negative Negative LAB CHEMISTRY METHOD 06/24/2025 12:46 PM EDT [facility] Comment: Assay cutoff 25 ng/mL Semi-quantitative assay for screening purposes only. Unconfirmed screening result should not be used for non-medical purposes. *ALTERNATE METHOD CONFIRMATION DONE UPON REQUEST ONLY* Urine Urine specimen obtained by clean catch procedure / Unknown Non-blood Collection / Unknown 06/24/2025 11:14 AM EDT 06/24/2025 12:15 PM EDT us Jhonatan Wyatt MD LAB URINE ORDERABLES Final Res ult [facility] [address] [place] [address], [place] [phone] * (ABNORMAL) CBC auto differential (06/24/2025 11:05 AM EDT) WBC 7.7 4.8 - 10.8 K/mcL LAB HEMETOLOGY METHOD 06/24/2025 11:22 AM [facility] RBC 3.60(L) 4.50 - 5.50 M/mcL LAB HEMETOLOGY METHOD 06/24/2025 11:22 AM [facility] [...] 06/24/2025 11:22 AM [facility] Eosinophils Relative 3.6 % LAB [...] K/mcL LAB HEMETOLOGY METHOD 06/24/2025 11:22 AM EDT [facility] Monocytes Absolute 0.83 0.20 - 1.00 K/mcL LAB HEMETOLOGY METHOD 06/24/2025 11:22 AM EDT [facility] Eosinophils Absolute 0.28 0.00 - 0.50 K/mcL LAB HEMETOLOGY METHOD 06/24/2025 11:22 AM EDT [facility] Basophils Absolute 0.06 0.00 - 0.20 K/mcL LAB HEMETOLOGY METHOD 06/24/2025 11:22 AM EDT [facility] Immature Granulocytes Absolute 0.03 0.00 - 0.03 K/mcL LAB HEMETOLOGY METHOD 06/24/2025 11:22 AM EDT [facility] Blood Venous blood specimen / Unknown Venipuncture / Unknown 06/24/2025 11:05 AM EDT 06/24/2025 11:13 AM EDT us Jhonatan Wyatt MD LAB BLOOD ORDERABLES Final Res ult Performing Organization Address City/[facility]/ZIP Co de Phone Number [facility] [address] [place] [address], [place] [phone] * Ethanol (06/24/2025 11:05 AM EDT) Ethanol Level <3 0 - 10 mg/dL LAB CHEMISTRY METHOD 06/24/2025 11:48 AM EDT [facility] Blood Venous blood specimen / Unknown Venipuncture / Unknown 06/24/2025 11:05 AM EDT 06/24/2025 11:13 AM EDT us Jhonatan Wyatt MD LAB BLOOD ORDERABLES Final Res ult [facility] [address] [place] [address], [place] [phone] * (ABNORMAL) Acetaminophen level (06/24/2025 11:05 AM EDT) Acetaminophen Level <2.0(L) 10.0 - 30.0 mcg/mL LAB CHEMISTRY METHOD 06/24/2025 11:48 AM EDT [facility] Blood Venous blood specimen / Unknown Venipuncture / Unknown 06/24/2025 11:05 AM EDT 06/24/2025 11:13 AM EDT us Jhonatan Wyatt MD LAB BLOOD ORDERABLES Final Res ult Performing Organization Address [facility]/ZIP Co de Phone Number [facility] [address] [place] [address], [place] [phone] * Salicylate level (06/24/2025 11:05 AM EDT) Salicylate Level 3.8 2.0 - 29.0 mg/dL LAB CHEMISTRY METHOD 06/24/2025 11:59 AM EDT [facility] Comment:Results verified by repeat testing Blood Venous blood specimen / Unknown Venipuncture / Unknown 06/24/2025 11:05 AM EDT 06/24/2025 11:13 AM EDT us Jhonatan Wyatt MD LAB BLOOD ORDERABLES Final Res ult Performing Organization Address City/[facility]/ZIP Co de Phone Number [facility] [address] [place] [address], [place] [phone] * Comprehensive metabolic panel (06/24/2025 11:05 AM EDT) Sodium 136 133 - 145 mmol/L LAB CHEMISTRY METHOD 06/24/2025 11:51 AM EDT [facility] Potassium 4.8 3.5 - 5.5 mmol/L LAB CHEMISTRY METHOD 06/24/2025 11:51 AM EDT [facility] Chloride 105 96 - 110 [...] 21.7 LAB CHEMISTRY METHOD 06/24/2025 11:51 AM [facility] Calcium 8.5 8.5 - 10.5 [...] g/dL LAB CHEMISTRY METHOD 06/24/2025 11:51 AM EDT [facility] Total Bilirubin 0.3 0.0 - 1.4 mg/dL LAB CHEMISTRY METHOD 06/24/2025 11:51 AM EDT [facility] Blood Venous blood specimen / Unknown Venipuncture / Unknown 06/24/2025 11:05 AM EDT 06/24/2025 11:13 AM EDT us Jhonatan Wyatt MD LAB BLOOD ORDERABLES Final Res ult [facility] [address] [place] [address], * (ABNORMAL) Culture wound deep (06/21/2025 3:22 PM EDT) Culture, Wound Methicillin-Sensiti ve Staphylococcus aureus(A) KHADAR 06/24/2025 11:12 AM EDT [facility] Comment: The organism value for this result has been updated. These results have been appended to the previously preliminary verified report. Edited result: Previously reported as Staphylococcus aureus on 06/22/2025 at 1327 EDT. Gram Stain Result No Epithelial cells(A) 06/24/2025 11:12 AM EDT [facility] Gram Stain Result Few Polymorphonuclear leukocytes(A) 06/24/2025 11:12 AM EDT [facility] Gram Stain Result Few Gram positive cocci in clusters(A) 06/24/2025 11:12 AM EDT [facility] Swab 06/21/2025 3:22 PM EDT 06/21/2025 4:30 PM EDT Narrative Organism Antibiotic Method Susceptibility Methicillin-Sensitive Staphylococcus aureus Benzylpenicillin KHADAR >=0.5 ug/ml: Resistant Methicillin-Sensitive Staphylococcus aureus Oxacillin KHADAR <=0.25 ug/ml: Susceptible Methicillin-Sensitive Staphylococcus aureus Gentamicin KHADAR <=0.5 ug/ml: Susceptible Methicillin-Sensitive Staphylococcus aureus Ciprofloxacin KHADAR <=0.5 ug/ml: Susceptible Methicillin-Sensitive Staphylococcus aureus Levofloxacin KHADAR <=0.12 ug/ml: Susceptible Methicillin-Sensitive Staphylococcus aureus Moxifloxacin KHADAR <=0.25 ug/ml: Susceptible Methicillin-Sensitive Staphylococcus aureus Erythromycin KHADAR >=8 ug/ml: Resistant Methicillin-Sensitive Staphylococcus aureus Clindamycin KHADAR <=0.25 ug/ml: Susceptible Methicillin-Sensitive Staphylococcus aureus Quinupristin/Dalfopristin KHADAR <=0.25 ug/ml: Susceptible Methicillin-Sensitive Staphylococcus aureus Linezolid KHADAR 2 ug/ml: Susceptible Methicillin-Sensitive Staphylococcus aureus Vancomycin KHADAR 1 ug/ml: Susceptible Methicillin-Sensitive Staphylococcus aureus Tetracycline KHADAR <=1 ug/ml: Susceptible Methicillin-Sensitive Staphylococcus aureus Rifampin KHADAR <=0.5 ug/ml: Susceptible Methicillin-Sensitive Staphylococcus aureus Trimethoprim/Sulfamethoxazo le KHADAR <=10 ug/ml: Susceptible us Jael Garcia [employer] LAB MICROBIOLOGY - GENERAL ORDERABLES Final Result [facility] [address] [place] [address], * XR Ribs w Chest 3+ Views Right (05/15/2025 2:29 PM EDT) Anatomical Region Laterality Modality Body Right Radiographic Sofiya ging 05/15/2025 3:18 PM EDT Impressions 05/15/2025 3:19 PM EDT FINDINGS/IMPRESSION: Lungs are clear. No pleural effusion or pneumothorax. Cardiac silhouette is normal in size. Degenerative changes seen throughout the bones. No acute displaced fracture. Old healed right posterior 9th through 11th rib fracture deformities are noted. -------- FINAL REPORT -------- Dictated By: AUGUSTIN WHITEHEAD Dictated Date: 05/15/2025 15:18 ET Assigned Physician: AUGUSTIN WHITEHEAD Reviewed and Electronically Signed By: AUGUSTIN WHITEHEAD Signed Date: 05/15/2025 15:19 ET Workstation ID: [id number] Transcribed By: Self Edit Transcribed Date: 05/15/2025 15:18 ET Narrative 05/15/2025 3:19 PM EDT XR RIBS W CHEST 3+ VIEWS RIGHT INDICATION: Pain TECHNIQUE: XR RIBS W CHEST 3+ VIEWS RIGHT COMPARISON: 12/08/2024 Procedure Note Augustin Whitehead MD - 05/15/2025 XR RIBS W CHEST 3+ VIEWS RIGHT INDICATION: Pain TECHNIQUE: XR RIBS W CHEST 3+ VIEWS RIGHT COMPARISON: 12/08/2024 IMPRESSION: FINDINGS/IMPRESSION: Lungs are clear. No pleural effusion orpneumothorax. Cardiac silhouette is normal in size. Degenerative changesseen throughout the bones. No acute displaced fracture. Old healed rightposterior 9th through 11th rib fracture deformities are noted. -------- FINAL REPORT -------- Dictated By: AUGUSTIN WHITEHEAD Dictated Date: 05/15/2025 15:18 ET Assigned Physician: AUGUSTIN WHITEHEAD Reviewed and Electronically Signed By: AUGUSTIN WHITEHEAD Signed Date: 05/15/2025 15:19 ET Workstation ID: [id number] Transcribed By: Self Edit Transcribed Date: 05/15/2025 15:18 ET Barbara Arce MD IMG XR PROCEDURES Final Result from Last 3 Months Insurance MEDICAID - [place] Care Teams Lead Clinical Research Coordinator Relationship Specialty Start Date End Date Luis A Das MD [address] [place] [address] PCP - General 10/19/19
--- OUTSIDE RECORDS SUMMARY | 2025-06-24 17:59 | XMS_ITS | Patient Health Record ---
Author Organization [facility] Address [address] [place] [address] Care Team Providers Care Dock Clerk Name Role Phone [facility] Unavailable [phone] Nelia Carranza Unavailable [phone] Dre Clay Unavailable [phone] Jael Garcia Unavailable [phone] Allergies No Known Allergies Results Component Value Reference Range Notes CULTURE WOUND DEEP (Not yet reviewed by provider) Interpretation:MRSA Performing Lab: Notes/Report: Methicillin-Sensitive Staphylococcus aureus Specimen Source: Swab Collected: Jun 21, 2025 15:22:00 The organism value for this result has been updated. These results have been appended to the previously preliminary verified report. Edited result: Previously reported as Staphylococcus aureus on 06/22/2025 at 1327 EDT. Organism: STAPHYLOCOCCUS AUREUS METHICILLIN SENSITIVE Antibiotics KHADAR Interpretation Penicillin G IgG-mCnc 0.5 R Oxacillin Susc Islt 0.25 S Gentamicin Islt KHADAR 0.5 S Ciprofloxacin Islt KHADAR 0.5 S levoFLOXacin Islt KHADAR 0.12 S Moxifloxacin Islt KHADAR 0.25 S Erythromycin Susc Islt 8 R Clindamycin Susc Islt 0.25 S Quinupristin+Dalfoprist Islt MIC0.25 S Linezolid Islt Grad strip 2 S Vancomycin Susc Islt 1 S Tetracycline Islt KHADAR 1 S rifAMPin Susc Islt 0.5 S TMP SMX Islt KHADAR 10 S Gram Stain Result No Epithelial cells Gram Stain Result Few Polymorphonuclear leukocytes Gram Stain Result Few Gram positive co cci in clusters Culture, Wound STAPHYLOCOCCUS AUREU S METHICILLIN SENSITIVE Report Susceptibility Report Reason For Referral No Information Medications Medication SIG (Take, Route, Frequency, Duration) Notes Start Date End Date Status lisinopril 10 mg 1 tab(s) orally once a day for 90 days Active KlonoPIN 0.5 mg 1 tab(s) orally twice a day Active Seroquel 300 mg 1 tab(s) orally at bedtime Active ferrous sulfate 325 mg 1 tab(s) orally once a day Active Epclusa 400 mg-100 mg 1 tab(s) orally once a day 1 week left- started [facility] Not-Taking benztropine 0.5 mg 1 tab(s) orally twice a day Active albuterol 90 mcg/inh 2 puff(s) inhaled every 6 hours Not-Taking ibuprofen 400 mg 1 tab(s) orally every 4 hours As needed Active cephalexin 500 mg 1 cap(s) orally three times a day Not-Taking haloperidol 5 mg 1 tab(s) orally 2 times a day Active bacitracin topical 500 units/g 1 alvin applied topically 2 times a day Not-Taking tamsulosin 0.4 mg 1 cap(s) orally at bedtime Active gabapentin 300 mg 1 cap(s) orally at bedtime for 30 days Active QUEtiapine 25 mg 1 tab(s) orally every 4 hours As needed Active Bactrim DS 800 mg-160 mg 1 tab(s) orally every 12 hours Not-Taking sulfamethoxazole-tr imethoprim 800 mg-160 mg 1 tab(s) orally every 12 hours for 10 day(s) 06/21/2025 Active Aspirin Low Dose 81 mg 1 tab(s) orally once a day for 90 days Active Suboxone 8 mg-2 mg 2 film(s) sublingually once a day [facility] Active Immunizations Vaccine Route Administration Date Status Comme nts PPD positive Unknown 02/23/2010 Administered client rep orts that he had 6 months of meds for TB positive [place] in [place] COMIRNATY Pfizer COVID-19 Vaccine 12y+ Unknown 02/28/2021 Administered COMIRNATY Pfizer COVID-19 Vaccine 12y+ Unknown 11/07/2021 Administered COMIRNATY Pfizer COVID-19 Vaccine 12y+ Unknown 2022 Administered hepatitis B Unknown 07/29/2018 Administered Influenza Unknown 07/09/2017 Administered Tdap Unknown 06/03/2011 Administered Shingrix (Zoster) Unknown 05/12/2024 Administered Pneumococcal Unknown 04/17/2017 Administered PCV 20 Unknown 05/12/2024 Administered Social History Tobacco Use: Social History Observation Description Date Details (start date - stop date) Current Smoker NA - NA Tobacco Use Assessment MU Question Answer Notes What is your current smoking status? current smo ker How often do you smoke? every day How many cigarettes a day do you smoke? 5 or les s How soon after you wake up d o you smoke your first cigarette? Within 5 minutes Are you interested in quitting? has been cutting down on smoking gradually as a strategy to quit smoking Patient counseled on the glen smiths of tobacco use and advised to quit: 01/15/2024 Problems Problem Type SNOMED Code ICD Code Onset Dates Problem Status W/U Status Risk Notes Problem Chronic hepatitis C (666731586) Chronic viral hepatitis C (B18.2) Active confirmed Problem Nicotine dependence (51162270) Nicotine dependence, cigarettes, with other nicotine-induce d disorders (F17.218) Active confirmed Problem Polyneuropathy (53289747) Polyneuropathy, unspecified (G62.9) Active confirmed Problem Essential hypertension (23908619) Essential (primary) hypertension (I10) Active confirmed Problem Interferon gamma assay positive (827179493) Nonspecific reaction to cell mediated immunity measurement of gamma interferon antigen response without active tuberculosis (R76.12) Active confirmed Problem Nondependent opioid abuse in remission (452477630) Opioid abuse, in remission (F11.11) Active confirmed Problem Body mass index 20-24 - normal (988083570) Body mass index [BMI] 20.0-20.9, adult (Z68.20) Active confirmed Problem Sheltered homelessness (437961253038070) Sheltered homelessness (Z59.01) Active confirmed Problem Body mass index 20-24 - normal (110395240) Body mass index [BMI] 21.0-21.9, adult (Z68.21) Inactive confirmed Vital Signs Temperature 97.7 degrees Fahrenheit 06/21/2025 Blood pressure diastolic 79 06/21/2025 Oximetry 96 06/21/2025 Height 65 in 06/21/2025 Blood pressure systolic 133 06/21/2025 Weight 117.0 lbs 06/21/2025 BMI 19.47 kg/m2 06/21/2025 Encounters Encounter Location Date Provider Diagnosis [address] [address] 06/21/2025 Eddieliza Casionan Cutaneous abscess of left lower limb L02.416 ; Sheltered homelessness Z59.01 and Essential (primary) hypertension I10 [address] [address] 05/23/[address] [address] 08/24/2024 Eddieliza Casionan Essential (primary) hypertension I10 [facility] [address] [place], [place] [id number] 12/21/[address] [address] 02/04/2025 Eddieliza Casionan Polyneuropathy, unspecified G62.[address] [address] 03/08/[address] [address] 06/20/2025 Eddieliza Casionan Essential (primary) hypertension I10 and Polyneuropathy, unspecified G62.9 Assessments Encounter Date Diagnosis (ICD Code) Assessment Notes Treatment Notes Treatment Clinical Notes Section Notes 06/21/2025 Cutaneous abscess of left lower limb (ICD-10 - L02.416) 08/24/2024 Essential (primary) hypertension (ICD-10 - I10) 02/04/2025 Polyneuropathy, unspecified (ICD-10 - G62.9) 06/20/2025 Essential (primary) hypertension (ICD-10 - I10) 06/21/2025 Sheltered homelessness (ICD-10 - Z59.01) 06/20/2025 Polyneuropathy, unspecified (ICD-10 - G62.9) 06/21/2025 Essential (primary) hypertension (ICD-10 - I10) 12/21/2024 Other Plan Of Treatment Pending Test Test Name Order Date Pulmonary Function Test 04/05/2024 WOUND CULTURE 06/21/2025 CULTURE WOUND DEEP 06/21/2025 Next Appt Details Provider Name:Kishanrickie stern, 07/05/2025 11:30:00 AM, [address] [place] [address], [phone], Insurance Providers Payer Name Payer Address Payer Phone Subscriber Number Group Number Insured Name Patient Relationship to Insured Coverage Start Date Coverage End Date [place] C3 [address] [place], [place] [id number] [phone] [id number] Nathan Canela Self - patient is the insured [place] [employer] [address] [place] [address] [id number] Nathan Canela Self - patient is the insured Medical (General) History Medical History History ICD Code depression ptsd bipolar anxiety heroin abuse recovery Nov snort Hep C smoker hypertension poor circulation of lower extremities Surgical History Surgery Date(Month/Year) Surgery for Prostate Ca - remission 2021 Hospitalization History Reason Date(Month/Year) Multiple psych admissions in area hospit als
--- OUTSIDE RECORDS SUMMARY | 2025-06-24 17:59 | XMS_ITS | Encounter Summary ---
Author Organization [facility] Address [address] [place] [address] Care Team Providers Care Litigation Legal Secretary Name Role Phone Luis A Das MD Primary Care Provider [phone] Encounter Details Date Type Department Care Team (Late st Contact Info) Description 06/21/2025 Lab Requisition [facility] Main Lab [address] [facility] [place] [id number] Jael Garcia, LEON [address] [place] [address] Cutaneous abscess of left lower limb Social History Tobacco Use Types Packs/Day Years Used Date Smoking Tobacco: Never Smokeless Tobacco: Never Sex and Gender Information Value Date Recorded Sex Assigned at Male 11/14/2024 7:16 PM EST Legal Sex Male 11:40 PM EST Gender Identity Male 11/14/2024 7:16 PM EST Sexual Orientation Straight 11/14/2024 7: 16 PM EST documented as of this encounter Functional Status * Are you deaf or do you have serious difficulty hearing? Answer Date of Assessment Author No 12/08/2024 4:58 PM EST Sandy Guerrero RN * Are you blind or do you have serious difficulty seeing, even when wearing glasses? Answer Date of Assessment Author No 12/08/2024 4:58 PM EST Sandy Guerrero RN * Do you have serious difficulty walking or climbing stairs? Answer Date of Assessment Author No 12/08/2024 4:58 PM EST Sandy Guerrero RN * Do you have serious difficulty [...] Sandy Hall RN documented in this encounter Plan of Treatment Not on file documented as of this encounter Procedures Procedure Name Priority Date/Time Associated Diagnosis Comments CULTURE WOUND DEEP Routine 06/21/2025 3: 22 PM EDT Cutaneous abscess of left lower limb documented in this encounter Results * (ABNORMAL) Culture wound deep (06/21/2025 3:22 PM EDT) Culture, Wound Methicillin-Sensiti ve Staphylococcus aureus(A) KHADAR 06/24/2025 11:12 AM EDT [facility] Comment: The organism value for this result has been updated. These results have been appended to the previously preliminary verified report. Edited result: Previously reported as Staphylococcus aureus on 06/22/2025 at 1327 EDT. Gram Stain Result No Epithelial cells(A) 06/24/2025 11:12 AM EDT [facility] Gram Stain Result Few Polymorphonuclear leukocytes(A) 06/24/2025 11:12 AM EDT [facility] Gram Stain Result Few Gram positive cocci in clusters(A) 06/24/2025 11:12 AM T [facility] Swab 06/21/2025 3:22 PM EDT 06/21/2025 [...] aureus Trimethoprim/Sulfamethoxazo le KHADAR <=10 ug/ml: Susceptible Jael Garcia [facility] LAB MICROBIOLOGY - GENERAL ORDERABLES Final Result [facility] [address] [place] [address], documented in this encounter Visit Diagnoses Diagnosis Cutaneous abscess of left lower limb documented in this encounter Care Teams Litigation Legal Secretary Relationship Specialty Start Date End Date Luis A Das MD [address] [place] [address] PCP - General 10/19/19 documented as of this encounter
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
--- NOTE | 2025-06-24 18:12 | PC.NURSE ---
Pt declined Flu vaccine at this time
--- NOTE | 2025-06-24 18:16 | PC.ADMIT ---
Nathan was admitted to [facility] from [facility] on a CV for treatment of Bipolar I and PTSD. Prior to admission, he reports recently having to move out of the apartment he was living in with his ex- about 2 months ago, leaving him homeless and living at [facility] in [place]. He reports this caused his depression to worsen and him to use cocaine. He began to hear voices that were telling him to hurt himself and jump in front of a cars or off a bridge. He scratched his left wrist with an item with razor teeth on one side. During skin assessment, several superficial scratches noted to L wrist, no signs of infection. He also has a dime sized laceration to R knee with mild erythema and warmth, no discharge noted. He reports he was previously on an unknown antibiotic for this but completed the antibiotic 1 day ago. Upon admission assessment, he is calm and cooperative but fidgeting and picking at skin. His mood is depressed and his affect is congruent with his mood. He hit himself in the head multiple times with an open hand, reporting it was to make the voices quiet down. He appeared to be responding to internal stimuli. His thought process was clear and linear, however he was difficult to understand at times due to mumbling. He reports a recent weight loss of about 15 lbs over the last 2 months due to low access to food. He denies sleep disturbance. He reports using cocaine, last use 2 days ago and taking Suboxone. His tox screen was positive for cocaine, fentanyl, THC and suboxone. He reports having a PMH of HTN and Asthma. He denies physical complaints. He reports having a therapist and psychiatrist through [facility] and being medication complaint. He was placed on 15 minute checks for safety.
[2025-06-24 19:40] VITALS: BP 83/45; PULSE 66; RESP 16; TEMP 37; O2SAT 96
[2025-06-24 20:10] VITALS: BP 120/82
--- NOTE | 2025-06-24 23:19 | HO.PM.IMCN ---
History of Present Illness Data of Consult Service Date: 06/24/25 Requesting physician: Leeanna Carlson Primary Care Provider: Unknown Physician HPI Reason for consult: Medical H and P Patient is a 59-year-old male with a past medical history significant for bipolar, PTSD, hypertension, moderate persistent asthma, cocaine use, and recent cellulitis, admitted to adult Psychiatry due to SI and auditory hallucinations from [facility]. The patient reported that he had lost about 15 lbs over the past few months due to low access to food. He also has cellulitis of the left knee which he had recently had treated with antibiotics without improvement. He reports pain, erythema, warmth and drainage. Patient is very irritable and gives minimal history. Review of Systems Constitutional: Constitutional: Denies fever(s) Cardiovascular: Cardiovascular: Denies leg edema and Denies dyspnea Respiratory: Respiratory: Denies dyspnea Gastrointestinal: Gastrointestinal: Denies nausea and Denies vomiting Musculoskeletal: Musculoskeletal: Reports arthralgias Integumentary/Breasts: Skin/Breast: Reports rash Neurologic: Denies confusion Psychiatric: Psychiatric: Denies confusion [facility] Medical History Hepatitis C Polysubstance abuse Opioid use disorder Bipolar disease, chronic PVD (peripheral vascular disease) HTN (hypertension) Injection of illicit drug within last 12 months PTSD (post-traumatic stress disorder) Functional capacity: independent ambulation Social History Household Members: None Housing: Homeless Housing Other:: Living at [facility] Do you presently have visiting nurse or other home services: No Patient Tobacco Use Status: Current everyday Tobacco user Tobacco use type: Cigarette Cigarette Packs Per Day: 0.5 Cigarettes Per Day: 10.0 Years Smoked: 35 Smoked in Last 30 Days: Yes Patient Interested in Nicotine Replacement: Yes (Nicotine Gum) Patient Given Instructions on How to Stop Smoking: Yes Date Education Initiated: 06/24/25 Substance Use Type: Heroin and Marijuana Currently Displaying Signs/Symptoms of Drug Intoxication Withdrawal: No Have you been hit, kicked, punched, or otherwise hurt by someone within the past year? If so, by whom?: No Do you feel safe in your current relationship?: No Current Relationship Is there a partner from a previous relationship who is making you feel unsafe now?: No Are you made to feel afraid or neglected: No Advance Directives: No Advance Directives Information Provided: No Do you have thoughts of harming others: None Do you have a plan to hurt others: No Plan Recently lost weight without trying: Yes How much weight loss: 14-23 pounds Eating poorly because of decreased appetite: Yes Nutrition screen score: 5 Nutrition Risks: No Nutritional Risk Poor oral hygiene: Yes service: No Narrative: cocaine use, last used 2 days ago Meds Allergies Allergy/AdvReac Type Severity Reaction Status Date / Time No Known Allergies Allergy Verified 04/28/24 01:52 Active Medications: Current Medications Acetaminophen (Acetaminophen 325 Mg Tablet) 650 mg PO Q6H PRN PRN Reason: Headache/Pain, Scale 1-10 Al Hydroxide/Mg Hydroxide (Magnesium Hydrox/Alum Hydrox 30 Ml Oral.Susp) 30 ml PO Q6H PRN PRN Reason: Heartburn/Nausea Albuterol Sulfate (Albuterol Sulfate 90 Mcg 8 Gm Inhaler) 2 puff INHALE Q4H PRN PRN Reason: Dyspnea Aspirin (Aspirin Enteric Coated 81 Mg Tablet.Dr) 81 mg PO DAILY [facility] Benztropine Mesylate (Benztropine Mesylate 0.5 Mg Tablet) 0.5 mg PO BID PRN PRN Reason: EPS Buprenorphine/Naloxone (Buprenorphine/Naloxone 8/2 Mg Film) 1 film SUBLINGUAL DAILY@0900,1700 [facility] Clonazepam (Clonazepam 0.5 Mg Tablet) 0.5 mg PO BID PRN PRN Reason: Anxiety Fluticasone Propionate (Fluticasone Propionate 250 Mcg Blst.W.Dev) 2 puff INHALE RBID PRN PRN Reason: Shortness Of Breath Gabapentin (Gabapentin 300 Mg Capsule) 300 mg PO BEDTIME [facility] Last Admin: 06/24/25 20:54 Dose: 300 mg Hydroxyzine HCl (Hydroxyzine Hcl 25 Mg Tablet) 25 mg PO Q6H PRN PRN Reason: mild anxiety Lisinopril (Lisinopril 10 Mg Tablet) 10 mg PO DAILY [facility]; Protocol Magnesium Hydroxide (Milk Of Magnesia 30 Ml Oral.Susp) 30 ml PO DAILY PRN PRN Reason: Constipation Nicotine (Nicotine 21 Mg Patch.Td24) 21 mg TRANSDERMA DAILY PRN PRN Reason: nicotine craving Nicotine Polacrilex (Nicotine Polacrilex 2 Mg Gum) 2 mg BUCCAL Q2H PRN PRN Reason: Nicotine Cravings Quetiapine Fumarate (Quetiapine Fumarate 25 Mg Tablet) 25 mg PO DAILY@0900,1500 [facility] Quetiapine Fumarate (Quetiapine Fumarate 50 Mg Tablet) 50 mg PO BID PRN PRN Reason: psychosis/agitation Last Admin: 06/24/25 18:52 Dose: 50 mg Quetiapine Fumarate (Quetiapine Fumarate 200 Mg Tablet) 200 mg PO BEDTIME [facility] Last Admin: 06/24/25 20:53 Dose: 200 mg Tamsulosin HCl (Tamsulosin Hcl 0.4 Mg Capsule) 0.4 mg PO BEDTIME [facility] Last Admin: 06/24/25 20:54 Dose: 0.4 mg Trazodone HCl (Trazodone Hcl 50 Mg Tablet) 50 mg PO BEDTIME MRX1 PRN PRN Reason: Insomnia Home Medications ?Medication ?Instructions ?Recorded ?Confirmed ?Last Taken ?Type aspirin 81 mg tablet,delayed 81 mg PO DAILY 02/25/24 06/24/25 Unknown History release buprenorphine 8 mg-naloxone 2 mg 2 film sublingual DAILY 02/25/24 06/24/25 06/24/25 14:00 History sublingual film (Suboxone) clonazepam 0.5 mg tablet 0.5 mg PO BID PRN Anxiety 02/25/24 06/24/25 Unknown History gabapentin 300 mg capsule 300 mg PO BEDTIME 02/25/24 06/24/25 06/23/25 22:00 History lisinopril 10 mg tablet 10 mg PO DAILY 02/25/24 06/24/25 06/23/25 09:00 History quetiapine 25 mg tablet 25 mg PO TID 02/25/24 06/24/25 06/24/25 14:00 History tamsulosin 0.4 mg capsule (Flomax) 0.4 mg PO BEDTIME 02/25/24 06/24/25 06/23/25 09:00 History albuterol sulfate 90 mcg/actuation 2 puff inhalation Q4H PRN dyspnea 06/24/25 06/24/25 Unknown History aerosol inhaler (Ventolin HFA) benztropine 0.5 mg tablet 0.5 mg PO BID 06/24/25 06/24/25 06/24/25 14:00 History fluticasone propionate 220 2 puff inhalation BID PRN 06/24/25 06/24/25 Unknown History mcg/actuation HFA aerosol inhaler Shortness Of Breath quetiapine 400 mg tablet 400 mg PO BEDTIME 06/24/25 06/24/25 06/23/25 22:00 History Physical Exam Vital Signs and Narrative: Vital Signs: Last Vital Signs Temp 98.6 F 06/24/25 19:40 Pulse 66 06/24/25 19:40 Resp 16 06/24/25 19:40 BP 120/82 06/24/25 20:10 Pulse Ox 96 06/24/25 19:40 O2 Del Method Room Air 06/24/25 19:40 BMI result Body Mass Index 19.1 General: AOx3, no acute distress Resp: no conversational dyspnea or signs of respiratory distress CVS: No pitting edema GI: no distention Skin: Warm, dry. warmth and erythema L medial knee with draining wound, appears serosanguineous Neuro: no slurred speech. Motor grossly intact bilaterally Extremities: No pitting edema Psych: irritable Const: General: No confusion Orientation/consciousness: No confusion Neuro: General: No confusion Assessment and Plan (1) Medical clearance for psychiatric admission: Status: Acute (2) Cellulitis: Status: Acute Plan Patient is a 59-year-old male with a past medical history significant for bipolar, PTSD, hypertension, moderate persistent asthma, cocaine use, and recent cellulitis, admitted to adult Psychiatry due to SI and auditory hallucinations from [facility]. Hospitalist consultation was placed for new admission H&P as well as questionable cellulitis left knee. Patient was extremely irritable and did not want to talk, limited exam and history given. SI/mood disorder/hallucinations - plan per psych Cellulitis left knee - doxycycline 100 mg b.i.d. x7 days - no leukocytosis on labs from [place], afebrile, no tachycardia or tachypnea HTN - continue lisinopril BPH - continue Flomax Moderate persistent asthma, no acute exacerbation - continue home inhalers ANDRES - utox + cocaine, THC, fentanyl and suboxone - addicition med consult Thank you for allowing me to participate in the pt's care. Signing off. Please contact the medical team if any questions or concerns.
[2025-06-25 08:00] VITALS: BP 118/64; PULSE 85; RESP 16; TEMP 37; O2SAT 97
[2025-06-25] MEDS: Aspirin Enteric Coated 81 MG TABLET.DR PO (08:45)
[2025-06-25 08:46] VITALS: BP 118/64
--- NOTE | 2025-06-25 09:20 | P.PNPSI_ITS ---
Subjective Subjective Date of Service: 06/25/25 Reason For Visit: HI and HI in context of command hallucination Subjective Notes: Conditional Voluntary Healthcare Proxy: No Guardianship: No Medical Problems Affecting Mental Status: No Interim History: Medical record and nursing notes reviewed; case discussed during rounds with team/nursing staff, and met with patient for supportive therapy/psychoeducation, as well as medication manag No issues with appetite and sleep, compliant with meds, visible, social. Patient appears responding to internal stimuli/voices, self dialogue and paranoid, he thinks two people are following him on the unit which there are no one around at the time this provider talking to him in the rosario. Passive SI d/t voices telling him to harm himself but able to be safe. Seen by hospitalist for abscess on Left knee and started on Doxycycline BID. Medication Compliance: Yes Attending Groups: Intermittent Review of Systems Acute medical concerns: No Medical Review of Systems: unchanged Review of Systems Review of Systems Constitutional: Denies fatigue and Denies fever(s) Cardiovascular: Denies chest pain and Denies dyspnea Respiratory: Denies dyspnea Gastrointestinal: Denies abdominal pain Psychiatric: denies suicidal ideation Endocrine: Denies fatigue Yes all other systems are reviewed and are negative Constitutional: Denies fever(s) Cardiovascular: Denies leg edema and Denies dyspnea Respiratory: Denies dyspnea Gastrointestinal: Denies nausea and Denies vomiting Musculoskeletal: Reports arthralgias Skin/Breast: Reports rash Denies confusion Psychiatric: Denies confusion Mental Status Exam Mental Status Exam Narrative: Patient is alert and oriented; behavior is cooperative, friendly with mild to moderate anxiety; patient is not in distress; dressed in own attire with kempt hair and adequate hygiene; mood is described as depressed and affect congruent; eye contact appropriate; Speech is normal rate, volume and prosody and not pressured; no psychomotor agitation/retardation present; thought process is disorganized but goal directed; Thought content is on treatment with comes and goes SI with AH telling him to to hurt himself, able to control and will seek out staff, pertinent to relevant topics and without any delusional content, paranoid ideation or grandiosity; denies SIB/HI. Appear to hear voices during assessment as he slightly slap this head to quieter the voices. Patient's insight and judgment impaired. Diagnostics Vital Signs (24Hr): Vital Signs - 24 hr 06/24/25 17:08 06/24/25 19:40 06/24/25 20:10 Temperature 97.7 F 98.6 F Pulse Rate 67 66 Respiratory Rate 18 16 Blood Pressure 113/58 L 83/45 L 120/82 Pulse Oximetry 97 96 Oxygen Delivery Method Room Air Room Air 06/25/25 08:00 06/25/25 08:46 Temperature 98.6 F Pulse Rate 85 Respiratory Rate 16 Blood Pressure 118/64 118/64 Pulse Oximetry 97 Oxygen Delivery Method Room Air BMI result Body Mass Index 19.1 Medications Medications Current Medications Acetaminophen (Acetaminophen 325 Mg Tablet) 650 mg PO Q6H PRN PRN Reason: Headache/Pain, Scale 1-10 Al Hydroxide/Mg Hydroxide (Magnesium Hydrox/Alum Hydrox 30 Ml Oral.Susp) 30 ml PO Q6H PRN PRN Reason: Heartburn/Nausea Albuterol Sulfate (Albuterol Sulfate 90 Mcg 8 Gm Inhaler) 2 puff INHALE Q4H PRN PRN Reason: Dyspnea Aspirin (Aspirin Enteric Coated 81 Mg Tablet.Dr) 81 mg PO DAILY [facility] Last Admin: 06/25/25 08:45 Dose: 81 mg Benztropine Mesylate (Benztropine Mesylate 0.5 Mg Tablet) 0.5 mg PO BID PRN PRN Reason: EPS Buprenorphine/Naloxone (Buprenorphine/Naloxone 8/2 Mg Film) 1 film SUBLINGUAL DAILY@0900,1700 [facility] Last Admin: 06/25/25 08:51 Dose: 1 film Clonazepam (Clonazepam 0.5 Mg Tablet) 0.5 mg PO BID PRN PRN Reason: Anxiety Last Admin: 06/25/25 08:50 Dose: 0.5 mg Doxycycline Monohydrate (Doxycycline Monohydrate 100 Mg Capsule) 100 mg PO BID [facility] Stop: 07/01/25 21:01 Last Admin: 06/25/25 08:45 Dose: 100 mg Fluticasone Propionate (Fluticasone Propionate 250 Mcg Blst.W.Dev) 2 puff INHALE RBID PRN PRN Reason: Shortness Of Breath Gabapentin (Gabapentin 300 Mg Capsule) 300 mg PO BEDTIME [facility] Last Admin: 06/24/25 20:54 Dose: 300 mg Hydroxyzine HCl (Hydroxyzine Hcl 25 Mg Tablet) 25 mg PO Q6H PRN PRN Reason: mild anxiety Lisinopril (Lisinopril 10 Mg Tablet) 10 mg PO DAILY [facility]; Protocol Last Admin: 06/25/25 08:46 Dose: 10 mg Magnesium Hydroxide (Milk Of Magnesia 30 Ml Oral.Susp) 30 ml PO DAILY PRN PRN Reason: Constipation Nicotine (Nicotine 21 Mg Patch.Td24) 21 mg TRANSDERMA DAILY PRN PRN Reason: nicotine craving Nicotine Polacrilex (Nicotine Polacrilex 2 Mg Gum) 2 mg BUCCAL Q2H PRN PRN Reason: Nicotine Cravings Quetiapine Fumarate (Quetiapine Fumarate 25 Mg Tablet) 25 mg PO DAILY@0900,1500 [facility] Last Admin: 06/25/25 08:47 Dose: 25 mg Quetiapine Fumarate (Quetiapine Fumarate 50 Mg Tablet) 50 mg PO BID PRN PRN Reason: psychosis/agitation Last Admin: 06/24/25 18:52 Dose: 50 mg Quetiapine Fumarate (Quetiapine Fumarate 200 Mg Tablet) 200 mg PO BEDTIME [facility] Last Admin: 06/24/25 20:53 Dose: 200 mg Tamsulosin HCl (Tamsulosin Hcl 0.4 Mg Capsule) 0.4 mg PO BEDTIME [facility] Last Admin: 06/24/25 20:54 Dose: 0.4 mg Trazodone HCl (Trazodone Hcl 50 Mg Tablet) 50 mg PO BEDTIME MRX1 PRN PRN Reason: Insomnia Allergies Allergies Allergy/AdvReac Type Severity Reaction Status Date / Time No Known Allergies Allergy Verified 04/28/24 01:52 Assessment & Plan Assessment & Plan (1) Cellulitis: Status: Acute Code(s): L03.90 - Cellulitis, unspecified (2) Bipolar I disorder with mood-congruent psychotic features: Status: Acute Code(s): F31.9 - Bipolar disorder, unspecified (3) Substance induced mood disorder: Status: Acute Code(s): F19.94 - Other psychoactive substance use, unspecified with psychoactive substance-induced mood disorder (4) Opioid use disorder: Status: Acute Code(s): F11.90 - Opioid use, unspecified, uncomplicated (5) Cocaine abuse: Status: Acute Code(s): F14.10 - Cocaine abuse, uncomplicated Plan HPI: Patient is a 59 years old Argentine speaking male with history of hypertension, substance abuse, PTSD, and hallucinations, and asthma who was referred to [facility] for increase hallucinations telling him to hurt himself and hurt other people. Patient cut his left wrist a couple of days ago. He hurts himself instead of hurting other people. Reported that he has been compliant with his medication except for Suboxone. Patient could slap his head slightly to make the voices quieter. Formulation/clinical reasoning: Increase hallucinations, increased substance use, increased depression anxiety, did cut himself in contact voices telling him to hurt himself and others. However he chose to hurt himself instead, superficial cuts on left arm. History of bipolar, history of polysubstance use. Inconsistent then with medication compliant, disorganization thoughts but motivated to get help and got into treatment program. Patient would benefit in restrictive environment for his own safety and the safety of other people, medication adjustment, and refer patient to outpatient substance treatment programs for aftercare. Hospital course: 06/24/25: Continue with home medication with adjustments/changes Suboxone 8/2 b.i.d. as MAT Seroquel 200 mg at bedtime. Reports he prescribed 400mg most of the time he takes only 200mg only. Plan to titrate target and psychosis. Seroquel 25 b.i.d. for mood. Seroquel 50 b.i.d. p.r.n. for psychosis agitation. Clonazepam 0.5 b.i.d. p.r.n. for severe anxiety. We will change Cogentin 0.5 b.i.d. to p.r.n. He has couple inhalers for his asthma. We will continue to monitor for abscesses on left knee. Hospitalist consult sent. 06/25/25: No issues with appetite and sleep, compliant with meds, visible, social. Patient appears responding to internal stimuli/voices, self dialogue and paranoid, he thinks two people are following him on the unit which there are no one around at the time this provider talking to him in the rosario. Passive SI d/t voices telling him to harm himself but able to be safe. Seen by hospitalist for abscess on Left knee and started on Doxycycline BID. Patient seen by Hospitalist yesterday: have Cellulitis left knee - doxycycline 100 mg b.i.d. x7 days - no leukocytosis on labs from [facility], afebrile, no tachycardia or tachypnea Continue with current plan. Plan Patient on 15 minute checks for safety. Admitted to [facility]. CV. Work with treatment team to do collateral for CSS/CCS if possible for aftercare. Refer to patient to [facility] specialist. Contact the hospitalist regarding hospitalist consultation on admission: seen by hospitalist. Patient educated on: diagnosis, medication risk/benefits, substance abuse and therapeutic strategies Informed Consent: understands and further education needed Reason for continued inpatient stay Substantial Risk for: med/psych decompensation Time Spent With Patient Time: Total time managing care of this patient today ____ minutes.
[2025-06-25] MEDS: Albuterol Sulfate 90 MCG 8 GM INHALER 2 PUFF INHALE (15:50)
[2025-06-25 19:30] VITALS: BP 109/56; PULSE 71; RESP 16; TEMP 36.9; O2SAT 95
[2025-06-26 08:00] VITALS: BP 130/71; PULSE 68; RESP 16; TEMP 37; O2SAT 95
[2025-06-26] MEDS: Aspirin Enteric Coated 81 MG TABLET.DR PO (08:27)
[2025-06-26 20:00] VITALS: BP 144/77; PULSE 94; RESP 18; TEMP 36.5; O2SAT 99
--- NOTE | 2025-06-26 22:48 | P.PNPSI_ITS ---
Subjective Subjective Date of Service: 06/26/25 Reason For Visit: HI and HI in context of command hallucination Subjective Notes: Conditional Voluntary Healthcare Proxy: No Guardianship: No Medical Problems Affecting Mental Status: No Interim History: Medical record and nursing notes reviewed; case discussed during rounds with team/nursing staff, and met with patient for supportive therapy/psychoeducation, as well as medication management. Patient slept for 8 hours, compliant with medications. Observe self dialogue, is paranoid with underlying irritability. Appear to respond to internal stimuli, reports the voices telling him to harm himself but he is able to control it. Per nursing, patient was agitated yesterday due to food is not available at dinnertime as he had to wait for 2 hours for his meal. He also making accusation regarding nursing to give him the wrong medications. Informed patient regarding medication changes. He is receptive with the plan Medication Compliance: Yes Side effects from medications: No Attending Groups: Intermittent Review of Systems Acute medical concerns: No Medical Review of Systems: unchanged Review of Systems Review of Systems Constitutional: Denies fatigue and Denies fever(s) Cardiovascular: Denies chest pain and Denies dyspnea Respiratory: Denies dyspnea Gastrointestinal: Denies abdominal pain Psychiatric: denies suicidal ideation Endocrine: Denies fatigue Yes all other systems are reviewed and are negative Mental Status Exam Mental Status Exam Narrative: Patient is alert and oriented; behavior is cooperative, friendly with mild to moderate anxiety; patient is not in distress; dressed in own attire with kempt hair and adequate hygiene; mood is described as depressed and anxious and affect congruent; eye contact appropriate; Speech is normal rate, volume and prosody and not pressured; no psychomotor agitation/retardation present; thought process is disorganized but goal directed; Thought content is on treatment with comes and goes SI as CAH telling him to to hurt himself, able to control and will seek out staff, pertinent to relevant topics. Is paranoid, self dialogue. ; denies SIB/HI.. Patient's insight and judgment impaired. Diagnostics Vital Signs (24Hr): Vital Signs - 24 hr 06/26/25 08:00 06/26/25 20:00 Temperature 98.6 F 97.7 F Pulse Rate 68 94 Respiratory Rate 16 18 Blood Pressure 130/71 144/77 H Pulse Oximetry 95 99 Oxygen Delivery Method Room Air Room Air BMI result Body Mass Index 19.1 Medications Medications Current Medications Acetaminophen (Acetaminophen 325 Mg Tablet) 650 mg PO Q6H PRN PRN Reason: Headache/Pain, Scale 1-10 Al Hydroxide/Mg Hydroxide (Magnesium Hydrox/Alum Hydrox 30 Ml Oral.Susp) 30 ml PO Q6H PRN PRN Reason: Heartburn/Nausea Albuterol Sulfate (Albuterol Sulfate 90 Mcg 8 Gm Inhaler) 2 puff INHALE Q4H PRN PRN Reason: Dyspnea Last Admin: 06/25/25 15:50 Dose: 2 puff Aspirin (Aspirin Enteric Coated 81 Mg Tablet.Dr) 81 mg PO DAILY [facility] Last Admin: 06/26/25 08:27 Dose: 81 mg Benztropine Mesylate (Benztropine Mesylate 0.5 Mg Tablet) 0.5 mg PO BID PRN PRN Reason: EPS Buprenorphine/Naloxone (Buprenorphine/Naloxone 8/2 Mg Film) 1 film SUBLINGUAL DAILY@0900,1700 [facility] Last Admin: 06/26/25 16:50 Dose: 1 film Clonazepam (Clonazepam 0.5 Mg Tablet) 0.5 mg PO BID PRN PRN Reason: Anxiety Last Admin: 06/26/25 20:00 Dose: 0.5 mg Doxycycline Monohydrate (Doxycycline Monohydrate 100 Mg Capsule) 100 mg PO BID [facility] Stop: 07/01/25 21:01 Last Admin: 06/26/25 20:00 Dose: 100 mg Fluticasone Propionate (Fluticasone Propionate 250 Mcg Blst.W.Dev) 2 puff INHALE RBID PRN PRN Reason: Shortness Of Breath Gabapentin (Gabapentin 300 Mg Capsule) 300 mg PO BEDTIME [facility] Last Admin: 06/26/25 20:01 Dose: 300 mg Hydroxyzine HCl (Hydroxyzine Hcl 25 Mg Tablet) 25 mg PO Q6H PRN PRN Reason: mild anxiety Last Admin: 06/25/25 22:18 Dose: 25 mg Lisinopril (Lisinopril 10 Mg Tablet) 10 mg PO DAILY [facility]; Protocol Last Admin: 06/26/25 08:29 Dose: 10 mg Magnesium Hydroxide (Milk Of Magnesia 30 Ml Oral.Susp) 30 ml PO DAILY PRN PRN Reason: Constipation Nicotine (Nicotine 21 Mg Patch.Td24) 21 mg TRANSDERMA DAILY PRN PRN Reason: nicotine craving Nicotine Polacrilex (Nicotine Polacrilex 2 Mg Gum) 2 mg BUCCAL Q2H PRN PRN Reason: Nicotine Cravings Last Admin: 06/26/25 12:52 Dose: 2 mg Quetiapine Fumarate (Quetiapine Fumarate 50 Mg Tablet) 50 mg PO BID PRN PRN Reason: psychosis/agitation Last Admin: 06/25/25 22:18 Dose: 50 mg Quetiapine Fumarate (Quetiapine Fumarate 50 Mg Tablet) 50 mg PO DAILY@0900,1500 [facility] Last Admin: 06/26/25 14:27 Dose: 50 mg Quetiapine Fumarate (Quetiapine Fumarate 300 Mg Tablet) 300 mg PO BEDTIME [facility] Last Admin: 06/26/25 20:00 Dose: 300 mg Tamsulosin HCl (Tamsulosin Hcl 0.4 Mg Capsule) 0.4 mg PO BEDTIME [facility] Last Admin: 06/26/25 20:02 Dose: Not Given Allergies Allergies Allergy/AdvReac Type Severity Reaction Status Date / Time No Known Allergies Allergy Verified 04/28/24 01:52 Assessment & Plan Assessment & Plan (1) Cellulitis: Status: Acute Code(s): L03.90 - Cellulitis, unspecified (2) Bipolar I disorder with mood-congruent psychotic features: Status: Acute Code(s): F31.9 - Bipolar disorder, unspecified (3) Substance induced mood disorder: Status: Acute Code(s): F19.94 - Other psychoactive substance use, unspecified with psychoactive substance-induced mood disorder (4) Opioid use disorder: Status: Acute Code(s): F11.90 - Opioid use, unspecified, uncomplicated (5) Cocaine abuse: Status: Acute Code(s): F14.10 - Cocaine abuse, uncomplicated Plan HPI: Patient is a 59 years old Chinese speaking male with history of hypertension, substance abuse, PTSD, and hallucinations, and asthma who was referred to [facility] from [facility] for increase hallucinations telling him to hurt himself and hurt other people. Patient cut his left wrist a couple of days ago. He hurts himself instead of hurting other people. Reported that he has been compliant with his medication except for Suboxone. Patient could slap his head slightly to make the voices quieter. Formulation/clinical reasoning: Increase hallucinations, increased substance use, increased depression anxiety, did cut himself in contact voices telling him to hurt himself and others. However he chose to hurt himself instead, superficial cuts on left arm. History of bipolar, history of polysubstance use. Inconsistent then with medication compliant, disorganization thoughts but motivated to get help and got into treatment program. Patient would benefit in restrictive environment for his own safety and the safety of other people, medication adjustment, and refer patient to outpatient substance treatment programs for aftercare. Hospital course: 06/24/25: Continue with home medication with adjustments/changes Suboxone 8/2 b.i.d. as MAT Seroquel 200 mg at bedtime. Reports he prescribed 400mg most of the time he takes only 200mg only. Plan to titrate target and psychosis. Seroquel 25 b.i.d. for mood. Seroquel 50 b.i.d. p.r.n. for psychosis agitation. Clonazepam 0.5 b.i.d. p.r.n. for severe anxiety. We will change Cogentin 0.5 b.i.d. to p.r.n. He has couple inhalers for his asthma. We will continue to monitor for abscesses on left knee. Hospitalist consult sent. 06/25/25: No issues with appetite and sleep, compliant with meds, visible, social. Patient appears responding to internal stimuli/voices, self dialogue and paranoid, he thinks two people are following him on the unit which there are no one around at the time this provider talking to him in the rosario. Passive SI d/t voices telling him to harm himself but able to be safe. Seen by hospitalist for abscess on Left knee and started on Doxycycline BID. Patient seen by Hospitalist yesterday: have Cellulitis left knee - doxycycline 100 mg b.i.d. x7 days - no leukocytosis on labs from [facility], afebrile, no tachycardia or tachypnea Continue with current plan. 06/26/25: Patient slept for 8 hours, compliant with medications. Observe self dialogue, is paranoid with underlying irritability. Appear to respond to internal stimuli, reports the voices telling him to harm himself but he is able to control it. Per nursing, patient was agitated yesterday due to food is not available at dinnertime as he had to wait for 2 hours for his meal. He also making accusation regarding nursing to give him the wrong medications. Informed patient regarding medication changes. He is receptive with the plan Increase Seroquel b.i.d. up to 50 mg for psychosis/angry mood Increase Seroquel at bedtime up to 300 mg for psychosis. Plan Patient on 15 minute checks for safety. Admitted to [facility]. CV. Work with treatment team to do collateral for CSS/CCS if possible for aftercare. Refer to patient to museum informatics specialist. Contact the hospitalist regarding hospitalist consultation on admission: seen by hospitalist. Patient educated on: diagnosis, medication risk/benefits, substance abuse and therapeutic strategies Informed Consent: further education needed Reason for continued inpatient stay Substantial Risk for: med/psych decompensation Time Spent With Patient Time: Total time managing care of this patient today ____ minutes.
[2025-06-27 07:25] VITALS: BP 143/70; PULSE 65; RESP 20; TEMP 36.4; O2SAT 99
[2025-06-27 08:19] VITALS: BP 143/70
[2025-06-27] MEDS: Aspirin Enteric Coated 81 MG TABLET.DR PO (08:20)
--- NOTE | 2025-06-27 08:23 | P.PNIM_ITS ---
Subjective Subjective Date of Service: 06/27/25 Interval History: Patient is seen in follow up for question cellulitis of left knee. On exam he reports that his left knee has decreased pain. He reports that he thought he was bit by a bug or a mouse prior to admission but denies any injury. He has been afebrile. On exam knee is less red, no discharge noted, area is scabbed. No pain with palpation. He otherwise feels well except for the voices that he has been hearing. Denies any shortness of breath, dizziness, chest pain, abdominal pain, constipation, lightheadedness or any other concerning symptoms. Denies any calf pain. Review of Systems Denies any shortness of breath, chest pain, dizziness, lightheadedness, abdominal pain or discomfort, nausea vomiting or diarrhea Physical Exam 2 Exam: Exam: CONST: Alert and oriented, in NAD. Well nourished HEENT: Normocephalic, atraumatic, MMM, Eyes clear, Neck supple RESP: Lungs clear, RRR even and regular HEART:,RRR, S1, S2. No murmur, no edema GI:Abdomen Soft NT, ND. + BS times four :Deferred SKIN: Warm dry and intact, left knee with decreased redness, and warmth. No purulent drainage. NEURO:CN II-XII Intact bilaterally, Sensation intact. Speech clear PSYCH: Normal affect Vital Signs: Vital Signs: Last Vital Signs Temp 97.6 F 06/27/25 07:25 Pulse 65 06/27/25 07:25 Resp 20 06/27/25 07:25 BP 143/70 H 06/27/25 07:25 Pulse Ox 99 06/27/25 07:25 O2 Del Method Room Air 06/27/25 07:25 BMI result Body Mass Index 19.1 Objective Data Active Medications Acetaminophen (Acetaminophen 325 Mg Tablet) 650 mg PO Q6H PRN PRN Reason: Headache/Pain, Scale 1-10 Al Hydroxide/Mg Hydroxide (Magnesium Hydrox/Alum Hydrox 30 Ml Oral.Susp) 30 ml PO Q6H PRN PRN Reason: Heartburn/Nausea Albuterol Sulfate (Albuterol Sulfate 90 Mcg 8 Gm Inhaler) 2 puff INHALE Q4H PRN PRN Reason: Dyspnea Last Admin: 06/25/25 15:50 Dose: 2 puff Documented By: CHAVA Aspirin (Aspirin Enteric Coated 81 Mg Tablet.) 81 mg PO DAILY [facility] Last Admin: 06/26/25 08:27 Dose: 81 mg Documented By: CHAVA Benztropine Mesylate (Benztropine Mesylate 0.5 Mg Tablet) 0.5 mg PO BID PRN PRN Reason: EPS Buprenorphine/Naloxone (Buprenorphine/Naloxone 8/2 Mg Film) 1 film SUBLINGUAL DAILY@0900,1700 [facility] Last Admin: 06/26/25 16:50 Dose: 1 film Documented By: CHAVA Clonazepam (Clonazepam 0.5 Mg Tablet) 0.5 mg PO BID PRN PRN Reason: Anxiety Last Admin: 06/26/25 20:00 Dose: 0.5 mg Documented By: JEAN CLAUDE Doxycycline Monohydrate (Doxycycline Monohydrate 100 Mg Capsule) 100 mg PO BID [facility] Stop: 07/01/25 21:01 Last Admin: 06/26/25 20:00 Dose: 100 mg Documented By: JEAN CLAUDE Fluticasone Propionate (Fluticasone Propionate 250 Mcg Blst.W.Dev) 2 puff INHALE RBID PRN PRN Reason: Shortness Of Breath Gabapentin (Gabapentin 300 Mg Capsule) 300 mg PO BEDTIME [facility] Last Admin: 06/26/25 20:01 Dose: 300 mg Documented By: JEAN CLAUDE Hydroxyzine HCl (Hydroxyzine Hcl 25 Mg Tablet) 25 mg PO Q6H PRN PRN Reason: mild anxiety Last Admin: 06/25/25 22:18 Dose: 25 mg Documented By: MAXIME Lisinopril (Lisinopril 10 Mg Tablet) 10 mg PO DAILY [facility]; Protocol Last Admin: 06/26/25 08:29 Dose: 10 mg Documented By: CHAVA Magnesium Hydroxide (Milk Of Magnesia 30 Ml Oral.Susp) 30 ml PO DAILY PRN PRN Reason: Constipation Nicotine (Nicotine 21 Mg Patch.Td24) 21 mg TRANSDERMA DAILY PRN PRN Reason: nicotine craving Nicotine Polacrilex (Nicotine Polacrilex 2 Mg Gum) 2 mg BUCCAL Q2H PRN PRN Reason: Nicotine Cravings Last Admin: 06/26/25 12:52 Dose: 2 mg Documented By: CHAVA Quetiapine Fumarate (Quetiapine Fumarate 50 Mg Tablet) 50 mg PO BID PRN PRN Reason: psychosis/agitation Last Admin: 06/25/25 22:18 Dose: 50 mg Documented By: MAXIME Quetiapine Fumarate (Quetiapine Fumarate 50 Mg Tablet) 50 mg PO DAILY@0900,1500 [facility] Last Admin: 06/26/25 14:27 Dose: 50 mg Documented By: CHAVA Quetiapine Fumarate (Quetiapine Fumarate 300 Mg Tablet) 300 mg PO BEDTIME [facility] Last Admin: 06/26/25 20:00 Dose: 300 mg Documented By: JEAN CLAUDE Tamsulosin HCl (Tamsulosin Hcl 0.4 Mg Capsule) 0.4 mg PO BEDTIME [facility] Last Admin: 06/26/25 20:02 Dose: Not Given Documented By: JEAN CLAUDE Non-Admin Reason: Patient Refused Assessment and Plan (1) Cellulitis: Status: Acute Plan 59-year-old male with a past medical history significant for bipolar, PTSD, hypertension, moderate persistent asthma, cocaine use, and recent cellulitis, admitted to adult Psychiatry due to SI and auditory hallucinations from [facility]. SI/mood disorder/hallucinations Plan per psych Cellulitis left knee Continue doxycycline 100 mg b.i.d. x7 days No leukocytosis on labs from [facility], afebrile, no tachycardia or tachypnea Less pain, improving HTN Continue lisinopril BPH Continue Flomax Moderate persistent asthma, no acute exacerbation Continue home inhalers ANDRES Tox screen positive for cocaine, THC, fentanyl and suboxone AddicThank you for allowing me to participate in the care of this patient. Signing off at this time. Please reconsult of any acute concerns or issues arisetion med consult Quality Stroke Does the patient have a stroke diagnosis?: No VTE Prior VTE?: No VTE Risk Level:: Medical - low VTE Device Contraindication: Treatment Not Indicated VTE Drug Contraindication: Treatment Not Indicated
--- NOTE | 2025-06-27 16:28 | MHC.CLN ---
CONSULT PATIENT REPORTS 15# WEIGHT LOSS X 2 MONTHS. LIVING AT A HALF-WAY AND REPORTED LIMITED ACCESS TO FOOD. TOX SCREEN POSITIVE UPON ADM FOR MULTIPLE SUBSTANCES. DIET RX REGULAR. BMI=19.1, UNDERWEIGHT. ADDING ENSURE TID TO PROMOTE NUTRITIONAL INTAKE. SUPPLEMENT PROVIDES [address], [address] AVAILABLE BY CONSULT NEEDED.
[2025-06-27 20:00] VITALS: BP 136/80; PULSE 85; RESP 18; TEMP 38; O2SAT 97
[2025-06-27] MEDS: Albuterol Sulfate 90 MCG 8 GM INHALER 2 PUFF INHALE (20:49)
--- NOTE | 2025-06-27 22:13 | P.PNPSI_ITS ---
Subjective Subjective Date of Service: 06/27/25 Reason For Visit: HI and HI in context of command hallucination Subjective Notes: 3 Day Healthcare Proxy: No Guardianship: No Medical Problems Affecting Mental Status: No Interim History: Medical record and nursing notes reviewed; case discussed during rounds with team/nursing staff, and met with patient for supportive therapy/psychoeducation, as well as medication management. Report that he feel better, medication change helpful. Signed a 3 day notice and he wants to have some control over when he wants to leave this taking care of his belongings in the storage. He refused labs work, per nursing patient reports that he frequently unit more often which he refused the Flomax last night. He is irritable regarding the Suboxone this morning he has been taking the same scheduled time. Suboxone tends to scheduled at 8AM. Reports voices has been better, no command hallucination or telling him to cut himself. Patient observe self dialogue, making a couple phone calls. Medication Compliance: Yes (except Flomax ) Side effects from medications: No Attending Groups: Yes Review of Systems Acute medical concerns: No Medical Review of Systems: unchanged Review of Systems Review of Systems Constitutional: Denies fatigue and Denies fever(s) Cardiovascular: Denies chest pain and Denies dyspnea Respiratory: Denies dyspnea Gastrointestinal: Denies abdominal pain Psychiatric: denies suicidal ideation Endocrine: Denies fatigue Yes all other systems are reviewed and are negative Mental Status Exam Mental Status Exam Narrative: Patient is alert and oriented; behavior is cooperative, friendly with mild to moderate anxiety; patient is not in distress; dressed in own attire with kempt hair and adequate hygiene; mood is described as less anxious but can be irritable and affect congruent; eye contact appropriate; Speech is normal rate, volume and prosody and not pressured; no psychomotor agitation/retardation present; thought process is disorganized but goal directed; Thought content is on treatment, pertinent to relevant topics. less paranoid, self dialogue. ; denies SI/SIB/HI. Patient's insight and judgment improved. Diagnostics Vital Signs (24Hr): Vital Signs - 24 hr 06/27/25 07:25 06/27/25 08:19 06/27/25 20:00 Temperature 97.6 F 100.4 F Pulse Rate 65 85 Respiratory Rate 20 18 Blood Pressure 143/70 H 143/70 H 136/80 Pulse Oximetry 99 97 Oxygen Delivery Method Room Air Room Air BMI result Body Mass Index 19.1 Medications Medications Current Medications Acetaminophen (Acetaminophen 325 Mg Tablet) 650 mg PO Q6H PRN PRN Reason: Headache/Pain, Scale 1-10 Al Hydroxide/Mg Hydroxide (Magnesium Hydrox/Alum Hydrox 30 Ml Oral.Susp) 30 ml PO Q6H PRN PRN Reason: Heartburn/Nausea Albuterol Sulfate (Albuterol Sulfate 90 Mcg 8 Gm Inhaler) 2 puff INHALE Q4H PRN PRN Reason: Dyspnea Last Admin: 06/27/25 20:49 Dose: 2 puff Aspirin (Aspirin Enteric Coated 81 Mg Tablet.Dr) 81 mg PO DAILY [facility] Last Admin: 06/27/25 08:20 Dose: 81 mg Benztropine Mesylate (Benztropine Mesylate 0.5 Mg Tablet) 0.5 mg PO BID PRN PRN Reason: EPS Buprenorphine/Naloxone (Buprenorphine/Naloxone 8/2 Mg Film) 1 film SUBLINGUAL DAILY@0800,1700 [facility] Last Admin: 06/27/25 18:00 Dose: 1 film Clonazepam (Clonazepam 0.5 Mg Tablet) 0.5 mg PO BID PRN PRN Reason: Anxiety Last Admin: 06/27/25 20:35 Dose: 0.5 mg Doxycycline Monohydrate (Doxycycline Monohydrate 100 Mg Capsule) 100 mg PO BID [facility] Stop: 07/01/25 21:01 Last Admin: 06/27/25 20:35 Dose: 100 mg Fluticasone Propionate (Fluticasone Propionate 250 Mcg Blst.W.Dev) 2 puff INHALE RBID PRN PRN Reason: Shortness Of Breath Gabapentin (Gabapentin 300 Mg Capsule) 300 mg PO BEDTIME [facility] Last Admin: 06/27/25 20:35 Dose: 300 mg Hydroxyzine HCl (Hydroxyzine Hcl 25 Mg Tablet) 25 mg PO Q6H PRN PRN Reason: mild anxiety Last Admin: 06/27/25 13:38 Dose: 25 mg Lisinopril (Lisinopril 10 Mg Tablet) 10 mg PO DAILY [facility]; Protocol Last Admin: 06/27/25 08:19 Dose: 10 mg Magnesium Hydroxide (Milk Of Magnesia 30 Ml Oral.Susp) 30 ml PO DAILY PRN PRN Reason: Constipation Nicotine (Nicotine 21 Mg Patch.Td24) 21 mg TRANSDERMA DAILY PRN PRN Reason: nicotine craving Nicotine Polacrilex (Nicotine Polacrilex 2 Mg Gum) 2 mg BUCCAL Q2H PRN PRN Reason: Nicotine Cravings Last Admin: 06/27/25 18:24 Dose: 2 mg Quetiapine Fumarate (Quetiapine Fumarate 50 Mg Tablet) 50 mg PO BID PRN PRN Reason: psychosis/agitation Last Admin: 06/25/25 22:18 Dose: 50 mg Quetiapine Fumarate (Quetiapine Fumarate 50 Mg Tablet) 50 mg PO DAILY@0900,1500 [facility] Last Admin: 06/27/25 15:04 Dose: 50 mg Quetiapine Fumarate (Quetiapine Fumarate 300 Mg Tablet) 300 mg PO BEDTIME [facility] Last Admin: 06/27/25 20:35 Dose: 300 mg Tamsulosin HCl (Tamsulosin Hcl 0.4 Mg Capsule) 0.4 mg PO BEDTIME [facility] Last Admin: 06/27/25 20:37 Dose: Not Given Allergies Allergies Allergy/AdvReac Type Severity Reaction Status Date / Time No Known Allergies Allergy Verified 04/28/24 01:52 Assessment & Plan Assessment & Plan (1) Cellulitis: Status: Acute Code(s): L03.90 - Cellulitis, unspecified (2) Bipolar I disorder with mood-congruent psychotic features: Status: Acute Code(s): F31.9 - Bipolar disorder, unspecified (3) Substance induced mood disorder: Status: Acute Code(s): F19.94 - Other psychoactive substance use, unspecified with psychoactive substance-induced mood disorder (4) Opioid use disorder: Status: Acute Code(s): F11.90 - Opioid use, unspecified, uncomplicated (5) Cocaine abuse: Status: Acute Code(s): F14.10 - Cocaine abuse, uncomplicated Plan HPI: Patient is a 59 years old Slovak speaking male with history of hypertension, substance abuse, PTSD, and hallucinations, and asthma who was referred to [facility] from [facility] for increase hallucinations telling him to hurt himself and hurt other people. Patient cut his left wrist a couple of days ago. He hurts himself instead of hurting other people. Reported that he has been compliant with his medication except for Suboxone. Patient could slap his head slightly to make the voices quieter. Formulation/clinical reasoning: Increase hallucinations, increased substance use, increased depression anxiety, did cut himself in contact voices telling him to hurt himself and others. However he chose to hurt himself instead, superficial cuts on left arm. History of bipolar, history of polysubstance use. Inconsistent then with medication compliant, disorganization thoughts but motivated to get help and got into treatment program. Patient would benefit in restrictive environment for his own safety and the safety of other people, medication adjustment, and refer patient to outpatient substance treatment programs for aftercare. Hospital course: 06/24/25: Continue with home medication with adjustments/changes Suboxone 8/2 b.i.d. as MAT Seroquel 200 mg at bedtime. Reports he prescribed 400mg most of the time he takes only 200mg only. Plan to titrate target and psychosis. Seroquel 25 b.i.d. for mood. Seroquel 50 b.i.d. p.r.n. for psychosis agitation. Clonazepam 0.5 b.i.d. p.r.n. for severe anxiety. We will change Cogentin 0.5 b.i.d. to p.r.n. He has couple inhalers for his asthma. We will continue to monitor for abscesses on left knee. Hospitalist consult sent. 06/25/25: No issues with appetite and sleep, compliant with meds, visible, social. Patient appears responding to internal stimuli/voices, self dialogue and paranoid, he thinks two people are following him on the unit which there are no one around at the time this provider talking to him in the rosario. Passive SI d/t voices telling him to harm himself but able to be safe. Seen by hospitalist for abscess on Left knee and started on Doxycycline BID. Patient seen by Hospitalist yesterday: have Cellulitis left knee - doxycycline 100 mg b.i.d. x7 days - no leukocytosis on labs from [facility], afebrile, no tachycardia or tachypnea Continue with current plan. 06/26/25: Patient slept for 8 hours, compliant with medications. Observe self dialogue, is paranoid with underlying irritability. Appear to respond to internal stimuli, reports the voices telling him to harm himself but he is able to control it. Per nursing, patient was agitated yesterday due to food is not available at dinnertime as he had to wait for 2 hours for his meal. He also making accusation regarding nursing to give him the wrong medications. Informed patient regarding medication changes. He is receptive with the plan Increase Seroquel b.i.d. up to 50 mg for psychosis/angry mood Increase Seroquel at bedtime up to 300 mg for psychosis. 06/27/25: Report that he feel better, medication change helpful. Signed a 3 day notice and he wants to have some control over when he wants to leave this taking care of his belongings in the storage. He refused labs work, per nursing patient reports that he frequently unit more often which he refused the Flomax last night. He is irritable regarding the Suboxone this morning he has been taking the same scheduled time. Suboxone tends to scheduled at 8AM. Reports voices has been better, no command hallucination or telling him to cut himself. Patient observe self dialogue, making a couple phone calls. Plan Patient on 15 minute checks for safety. Admitted to [facility]. 3 day notice up on 06/30/25- . Work with treatment team to do collateral for CSS/CCS if possible for aftercare. Refer to patient to rx specialist. Contact the hospitalist regarding hospitalist consultation on admission: seen by hospitalist. Patient educated on: diagnosis, medication risk/benefits, substance abuse and therapeutic strategies Informed Consent: further education needed Reason for continued inpatient stay Substantial Risk for: med/psych decompensation Time Spent With Patient Time: Total time managing care of this patient today ____ minutes.
[2025-06-27 22:27] VITALS: TEMP 36.8
[2025-06-28 08:00] VITALS: BP 141/66; PULSE 72; RESP 16; TEMP 36.3; O2SAT 99
[2025-06-28] MEDS: Aspirin Enteric Coated 81 MG TABLET.DR PO (08:48)
[2025-06-28 08:49] VITALS: BP 141/66
--- NOTE | 2025-06-28 10:56 | MHC.RECOVRN ---
Addendum entered by Floresita Crane RN 06/28/25 14:36: Nathan is connected with and receives his Suboxone from [facility] in [place]. He declined referrals for cocaine use. Pt encouraged to discuss with his outpatient [facility] provider. Original Note: Pt is a 59-y/o male with a history of opioid use disorder in remission - on suboxone, hypertension, asthma, and PTSD, who initially presented to the ED reporting auditory hallucinations and SI. Following CARE team eval, pt was found to be IPLOC and was admitted to for psychiatric evaluation and treatment. Met with pt Nathan in meeting room of after receiving an addiction consult for reported cocaine use, to discuss recovery supports and options. Upon approach pt is appearing calm and is receptive to conversing with this nurse. Pt reports he has been in recovery from opiates for some time now and is doing well on suboxone maintenance. Reported hx of [facility]RES-related treatment. Pt also reports occasional intranasal cocaine use (couple times a week) with $10-$15 worth of cocaine. In his own words I'm not addicted to cocaine, it's just here and there, it's not on my mind, you know? . Reporting such, pt also decined any [facility] related intervention at this time. Pt stated my transition social worker is working on getting me into [facility] residential [facility] program but they may not have a bed till when I discharge. Pt declined all other interventions offered by the [facility] team including recovery coaching, and START program referral. We did briefly discuss harm reduction strategies, however pt is adamant that his cocaine use has never been an issue for him. No other questions or concerns offered at this time. Pt encouraged to reach out to the ACS team should any new issues/concerns arise. Discussed with Addiction Medicine director Linda Steel NP.
--- NOTE | 2025-06-28 18:06 | HO.PSYCHPN ---
Subjective Subjective Date of Service: 06/28/25 Reason For Visit: HI and HI in context of command hallucination Subjective Notes: 3 Day Healthcare Proxy: No Guardianship: No Medical Problems Affecting Mental Status: No Interim History: Medical record and nursing notes reviewed; case discussed during rounds with team/nursing staff, and met with patient for supportive therapy/psychoeducation, as well as medication management. Patient reports continued to improve in mental health, improve in depression and anxiety, improving in voices. No command hallucinations. He is less irritable, recognized that he was paranoid before thinking people were talking to him/following him. A good like to be discharged early on . Agree with the Seroquel increased at bedtime which is helpful for voices. Patient do not want to take the Flomax as he urinates so many times at night. Advised patient to take it when he needs to and FLU with OP provider. . Medication Compliance: Yes (except Flomax) Side effects from medications: Yes (Refused Flomax as he pees so many times at night) Attending Groups: Intermittent Review of Systems Acute medical concerns: No Medical Review of Systems: unchanged Review of Systems Review of Systems Constitutional: Denies fatigue and Denies fever(s) Cardiovascular: Denies chest pain and Denies dyspnea Respiratory: Denies dyspnea Gastrointestinal: Denies abdominal pain. Report frequent urinary at night on Flomax Psychiatric: denies suicidal ideation Endocrine: Denies fatigue Yes all other systems are reviewed and are negative Mental Status Exam Mental Status Exam Narrative: Patient is alert and oriented; behavior is cooperative, friendly, less anxiety; patient is not in distress; dressed in own attire with kempt hair and adequate hygiene; mood is described as good and affect congruent; eye contact appropriate; Speech is normal rate, volume and prosody and not pressured; no psychomotor agitation/retardation present; thought process is more organized but goal directed; Thought content is on treatment, pertinent to relevant topics. less paranoid; denies SI/SIB/HI/CAH but AH has been improved. Patient's insight and judgment improved. Diagnostics Vital Signs (24Hr): Vital Signs - 24 hr 06/27/25 20:00 06/27/25 22:27 06/28/25 08:00 Temperature 100.4 F 98.3 F 97.4 F Pulse Rate 85 72 Respiratory Rate 18 16 Blood Pressure 136/80 141/66 H Pulse Oximetry 97 99 Oxygen Delivery Method Room Air Room Air 06/28/25 08:49 Temperature Pulse Rate Respiratory Rate Blood Pressure 141/66 H Pulse Oximetry Oxygen Delivery Method BMI result Body Mass Index 19.1 Medications Medications Current Medications Acetaminophen (Acetaminophen 325 Mg Tablet) 650 mg PO Q6H PRN PRN Reason: Headache/Pain, Scale 1-10 Al Hydroxide/Mg Hydroxide (Magnesium Hydrox/Alum Hydrox 30 Ml Oral.Susp) 30 ml PO Q6H PRN PRN Reason: Heartburn/Nausea Albuterol Sulfate (Albuterol Sulfate 90 Mcg 8 Gm Inhaler) 2 puff INHALE Q4H PRN PRN Reason: Dyspnea Last Admin: 06/27/25 20:49 Dose: 2 puff Aspirin (Aspirin Enteric Coated 81 Mg Tablet.Dr) 81 mg PO DAILY [facility] Last Admin: 06/28/25 08:48 Dose: 81 mg Benztropine Mesylate (Benztropine Mesylate 0.5 Mg Tablet) 0.5 mg PO BID PRN PRN Reason: EPS Buprenorphine/Naloxone (Buprenorphine/Naloxone 8/2 Mg Film) 1 film SUBLINGUAL DAILY@0800,1700 [facility] Last Admin: 06/28/25 17:27 Dose: 1 film Clonazepam (Clonazepam 0.5 Mg Tablet) 0.5 mg PO BID PRN PRN Reason: Anxiety Last Admin: 06/28/25 09:24 Dose: 0.5 mg Doxycycline Monohydrate (Doxycycline Monohydrate 100 Mg Capsule) 100 mg PO BID [facility] Stop: 07/01/25 21:01 Last Admin: 06/28/25 08:48 Dose: 100 mg Fluticasone Propionate (Fluticasone Propionate 250 Mcg Blst.W.Dev) 2 puff INHALE RBID PRN PRN Reason: Shortness Of Breath Gabapentin (Gabapentin 300 Mg Capsule) 300 mg PO BEDTIME [facility] Last Admin: 06/27/25 20:35 Dose: 300 mg Hydroxyzine HCl (Hydroxyzine Hcl 25 Mg Tablet) 25 mg PO Q6H PRN PRN Reason: mild anxiety Last Admin: 06/27/25 13:38 Dose: 25 mg Lisinopril (Lisinopril 10 Mg Tablet) 10 mg PO DAILY [facility]; Protocol Last Admin: 06/28/25 08:49 Dose: 10 mg Magnesium Hydroxide (Milk Of Magnesia 30 Ml Oral.Susp) 30 ml PO DAILY PRN PRN Reason: Constipation Nicotine (Nicotine 21 Mg Patch.Td24) 21 mg TRANSDERMA DAILY PRN PRN Reason: nicotine craving Nicotine Polacrilex (Nicotine Polacrilex 2 Mg Gum) 2 mg BUCCAL Q2H PRN PRN Reason: Nicotine Cravings Last Admin: 06/28/25 13:10 Dose: 2 mg Quetiapine Fumarate (Quetiapine Fumarate 50 Mg Tablet) 50 mg PO BID PRN PRN Reason: psychosis/agitation Last Admin: 06/25/25 22:18 Dose: 50 mg Quetiapine Fumarate (Quetiapine Fumarate 50 Mg Tablet) 50 mg PO DAILY@0900,1500 [facility] Last Admin: 06/28/25 14:38 Dose: 50 mg Quetiapine Fumarate (Quetiapine Fumarate 400 Mg Tablet) 400 mg PO BEDTIME [facility] Tamsulosin HCl (Tamsulosin Hcl 0.4 Mg Capsule) 0.4 mg PO BEDTIME [facility] Last Admin: 06/27/25 20:37 Dose: Not Given Allergies Allergies Allergy/AdvReac Type Severity Reaction Status Date / Time No Known Allergies Allergy Verified 04/28/24 01:52 Assessment & Plan Assessment & Plan (1) Cellulitis: Status: Acute Code(s): L03.90 - Cellulitis, unspecified (2) Bipolar I disorder with mood-congruent psychotic features: Status: Acute Code(s): F31.9 - Bipolar disorder, unspecified (3) Substance induced mood disorder: Status: Acute Code(s): F19.94 - Other psychoactive substance use, unspecified with psychoactive substance-induced mood disorder (4) Opioid use disorder: Status: Acute Code(s): F11.90 - Opioid use, unspecified, uncomplicated (5) Cocaine abuse: Status: Acute Code(s): F14.10 - Cocaine abuse, uncomplicated Plan HPI: Patient is a 59 years old Portuguese speaking male with history of hypertension, substance abuse, PTSD, and hallucinations, and asthma who was referred to [facility] for increase hallucinations telling him to hurt himself and hurt other people. Patient cut his left wrist a couple of days ago. He hurts himself instead of hurting other people. Reported that he has been compliant with his medication except for Suboxone. Patient could slap his head slightly to make the voices quieter. Formulation/clinical reasoning: Increase hallucinations, increased substance use, increased depression anxiety, did cut himself in contact voices telling him to hurt himself and others. However he chose to hurt himself instead, superficial cuts on left arm. History of bipolar, history of polysubstance use. Inconsistent then with medication compliant, disorganization thoughts but motivated to get help and got into treatment program. Patient would benefit in restrictive environment for his own safety and the safety of other people, medication adjustment, and refer patient to outpatient substance treatment programs for aftercare. Hospital course: 06/24/25: Continue with home medication with adjustments/changes Suboxone 8/2 b.i.d. as MAT Seroquel 200 mg at bedtime. Reports he prescribed 400mg most of the time he takes only 200mg only. Plan to titrate target and psychosis. Seroquel 25 b.i.d. for mood. Seroquel 50 b.i.d. p.r.n. for psychosis agitation. Clonazepam 0.5 b.i.d. p.r.n. for severe anxiety. We will change Cogentin 0.5 b.i.d. to p.r.n. He has couple inhalers for his asthma. We will continue to monitor for abscesses on left knee. Hospitalist consult sent. 06/25/25: No issues with appetite and sleep, compliant with meds, visible, social. Patient appears responding to internal stimuli/voices, self dialogue and paranoid, he thinks two people are following him on the unit which there are no one around at the time this provider talking to him in the rosario. Passive SI d/t voices telling him to harm himself but able to be safe. Seen by hospitalist for abscess on Left knee and started on Doxycycline BID. Patient seen by Hospitalist yesterday: have Cellulitis left knee - doxycycline 100 mg b.i.d. x7 days - no leukocytosis on labs from [facility], afebrile, no tachycardia or tachypnea Continue with current plan. 06/26/25: Patient slept for 8 hours, compliant with medications. Observe self dialogue, is paranoid with underlying irritability. Appear to respond to internal stimuli, reports the voices telling him to harm himself but he is able to control it. Per nursing, patient was agitated yesterday due to food is not available at dinnertime as he had to wait for 2 hours for his meal. He also making accusation regarding nursing to give him the wrong medications. Informed patient regarding medication changes. He is receptive with the plan Increase Seroquel b.i.d. up to 50 mg for psychosis/angry mood Increase Seroquel at bedtime up to 300 mg for psychosis. 06/27/25: Report that he feel better, medication change helpful. Signed a 3 day notice and he wants to have some control over when he wants to leave this taking care of his belongings in the storage. He refused labs work, per nursing patient reports that he frequently unit more often which he refused the Flomax last night. He is irritable regarding the Suboxone this morning he has been taking the same scheduled time. Suboxone tends to scheduled at 8AM. Reports voices has been better, no command hallucination or telling him to cut himself. Patient observe self dialogue, making a couple phone calls. 06/28/25: Patient reports continued to improve in mental health, improve in depression and anxiety, improving in voices. No command hallucinations. He is less irritable, recognized that he was paranoid before thinking people were talking to him/following him. A good like to be discharged early on . Agree with the Seroquel increased at bedtime which is helpful for voices. Patient do not want to take the Flomax as he urinates so many times at night. Advised patient to take it when he needs to and FLU with OP provider. . Continue with antibiotic for abscess. Increase Seroquel up to 400mg at HS for psychosis. Plan Patient on 15 minute checks for safety. Admitted to M3. 3 day notice up on 06/30/25- . Work with treatment team to do collateral. Refer to patient to child welfare specialist. Contact the hospitalist regarding hospitalist consultation on admission: seen by hospitalist. Patient educated on: diagnosis, medication risk/benefits, substance abuse and therapeutic strategies Reason for continued inpatient stay Substantial Risk for: med/psych decompensation Time Spent With Patient Time: Total time managing care of this patient today ____ minutes.
[2025-06-28 19:35] VITALS: BP 125/70; PULSE 70; RESP 18; TEMP 36.9; O2SAT 98
[2025-06-28] MEDS: Albuterol Sulfate 90 MCG 8 GM INHALER 2 PUFF INHALE (20:41)
[2025-06-29 07:36] VITALS: BP 102/67; PULSE 90; RESP 16; TEMP 37.1; O2SAT 99
[2025-06-29] MEDS: Aspirin Enteric Coated 81 MG TABLET.DR PO (08:19)
[2025-06-29] MEDS: Albuterol Sulfate 90 MCG 8 GM INHALER 2 PUFF INHALE ×2 (13:27→20:24)
--- NOTE | 2025-06-29 13:29 | HO.PSYCHPN ---
Subjective Subjective Date of Service: 06/29/25 Reason For Visit: HI and HI in context of command hallucination Subjective Notes: 3 Day Interim History: Active on unit. social with peers. Patient reports feeling better today; pt stated, I'm not having any anxiety or depression. The voices are really low . Denies SI/HI/VH. He reports auditory hallucinations that are very low . Pt reports he plans on following up with outpatient providers. Medication Compliance: Yes Side effects from medications: No Diagnostics Vital Signs (24Hr): Vital Signs - 24 hr 06/28/25 19:35 06/29/25 07:36 Temperature 98.5 F 98.7 F Pulse Rate 70 90 Respiratory Rate 18 16 Blood Pressure 125/70 102/67 Pulse Oximetry 98 99 Oxygen Delivery Method Room Air Room Air BMI result Body Mass Index 19.1 Medications Medications Current Medications Acetaminophen (Acetaminophen 325 Mg Tablet) 650 mg PO Q6H PRN PRN Reason: Headache/Pain, Scale 1-10 Al Hydroxide/Mg Hydroxide (Magnesium Hydrox/Alum Hydrox 30 Ml Oral.Susp) 30 ml PO Q6H PRN PRN Reason: Heartburn/Nausea Albuterol Sulfate (Albuterol Sulfate 90 Mcg 8 Gm Inhaler) 2 puff INHALE Q4H PRN PRN Reason: Dyspnea Last Admin: 06/29/25 13:27 Dose: 2 puff Aspirin (Aspirin Enteric Coated 81 Mg Tablet.Dr) 81 mg PO DAILY [facility] Last Admin: 06/29/25 08:19 Dose: 81 mg Benztropine Mesylate (Benztropine Mesylate 0.5 Mg Tablet) 0.5 mg PO BID PRN PRN Reason: EPS Buprenorphine/Naloxone (Buprenorphine/Naloxone 8/2 Mg Film) 1 film SUBLINGUAL DAILY@0800,1700 [facility] Last Admin: 06/29/25 08:21 Dose: 1 film Clonazepam (Clonazepam 0.5 Mg Tablet) 0.5 mg PO BID PRN PRN Reason: Anxiety Last Admin: 06/28/25 20:39 Dose: 0.5 mg Doxycycline Monohydrate (Doxycycline Monohydrate 100 Mg Capsule) 100 mg PO BID [facility] Stop: 07/01/25 21:01 Last Admin: 06/29/25 08:19 Dose: 100 mg Fluticasone Propionate (Fluticasone Propionate 250 Mcg Blst.W.Dev) 2 puff INHALE RBID PRN PRN Reason: Shortness Of Breath Gabapentin (Gabapentin 300 Mg Capsule) 300 mg PO BEDTIME [facility] Last Admin: 06/28/25 20:39 Dose: 300 mg Hydroxyzine HCl (Hydroxyzine Hcl 25 Mg Tablet) 25 mg PO Q6H PRN PRN Reason: mild anxiety Last Admin: 06/27/25 13:38 Dose: 25 mg Lisinopril (Lisinopril 10 Mg Tablet) 10 mg PO DAILY [facility]; Protocol Last Admin: 06/29/25 08:19 Dose: 10 mg Magnesium Hydroxide (Milk Of Magnesia 30 Ml Oral.Susp) 30 ml PO DAILY PRN PRN Reason: Constipation Nicotine (Nicotine 21 Mg Patch.Td24) 21 mg TRANSDERMA DAILY PRN PRN Reason: nicotine craving Nicotine Polacrilex (Nicotine Polacrilex 2 Mg Gum) 2 mg BUCCAL Q2H PRN PRN Reason: Nicotine Cravings Last Admin: 06/29/25 08:22 Dose: 2 mg Quetiapine Fumarate (Quetiapine Fumarate 50 Mg Tablet) 50 mg PO BID PRN PRN Reason: psychosis/agitation Last Admin: 06/29/25 13:28 Dose: 50 mg Quetiapine Fumarate (Quetiapine Fumarate 50 Mg Tablet) 50 mg PO DAILY@0900,1500 [facility] Last Admin: 06/29/25 08:22 Dose: 50 mg Quetiapine Fumarate (Quetiapine Fumarate 400 Mg Tablet) 400 mg PO BEDTIME [facility] Last Admin: 06/28/25 20:39 Dose: 400 mg Tamsulosin HCl (Tamsulosin Hcl 0.4 Mg Capsule) 0.4 mg PO BEDTIME [facility] Last Admin: 06/28/25 22:00 Dose: Not Given Allergies Allergies Allergy/AdvReac Type Severity Reaction Status Date / Time No Known Allergies Allergy Verified 04/28/24 01:52 Assessment & Plan Assessment & Plan (1) Bipolar I disorder with mood-congruent psychotic features: Status: Acute Code(s): F31.9 - Bipolar disorder, unspecified (2) Cellulitis: Status: Acute Code(s): L03.90 - Cellulitis, unspecified (3) Substance induced mood disorder: Status: Acute Code(s): F19.94 - Other psychoactive substance use, unspecified with psychoactive substance-induced mood disorder (4) Opioid use disorder: Status: Acute Code(s): F11.90 - Opioid use, unspecified, uncomplicated (5) Cocaine abuse: Status: Acute Code(s): F14.10 - Cocaine abuse, uncomplicated Plan Patient is a 59 years old Jamaican speaking male with history of hypertension, substance abuse, PTSD, and hallucinations, and asthma who was referred to [facility] for increase hallucinations telling him to hurt himself and hurt other people. Patient cut his left wrist a couple of days ago. He hurts himself instead of hurting other people. Reported that he has been compliant with his medication except for Suboxone. Patient could slap his head slightly to make the voices quieter. Formulation/clinical reasoning: Increase hallucinations, increased substance use, increased depression anxiety, did cut himself in contact voices telling him to hurt himself and others. However he chose to hurt himself instead, superficial cuts on left arm. History of bipolar, history of polysubstance use. Inconsistent then with medication compliant, disorganization thoughts but motivated to get help and got into treatment program. Patient would benefit in restrictive environment for his own safety and the safety of other people, medication adjustment, and refer patient to outpatient substance treatment programs for aftercare. Plan: Patient on 15 minute checks for safety. Admitted to M3. 3 day notice up on 06/30/25- . Work with treatment team to do collateral. Refer to patient to applied behavior science specialist. Contact the hospitalist regarding hospitalist consultation on admission: seen by hospitalist 06/24/25: Continue with home medication with adjustments/changes Suboxone 8/2 b.i.d. as MAT Seroquel 200 mg at bedtime. Reports he prescribed 400mg most of the time he takes only 200mg only. Plan to titrate target and psychosis. Seroquel 25 b.i.d. for mood. Seroquel 50 b.i.d. p.r.n. for psychosis agitation. Clonazepam 0.5 b.i.d. p.r.n. for severe anxiety. We will change Cogentin 0.5 b.i.d. to p.r.n. He has couple inhalers for his asthma. We will continue to monitor for abscesses on left knee. Hospitalist consult sent. 06/25/25: No issues with appetite and sleep, compliant with meds, visible, social. Patient appears responding to internal stimuli/voices, self dialogue and paranoid, he thinks two people are following him on the unit which there are no one around at the time this provider talking to him in the rosario. Passive SI d/t voices telling him to harm himself but able to be safe. Seen by hospitalist for abscess on Left knee and started on Doxycycline BID. Patient seen by Hospitalist yesterday: have Cellulitis left knee - doxycycline 100 mg b.i.d. x7 days - no leukocytosis on labs from [facility], afebrile, no tachycardia or tachypnea Continue with current plan. 06/26/25: Patient slept for 8 hours, compliant with medications. Observe self dialogue, is paranoid with underlying irritability. Appear to respond to internal stimuli, reports the voices telling him to harm himself but he is able to control it. Per nursing, patient was agitated yesterday due to food is not available at dinnertime as he had to wait for 2 hours for his meal. He also making accusation regarding nursing to give him the wrong medications. Informed patient regarding medication changes. He is receptive with the plan Increase Seroquel b.i.d. up to 50 mg for psychosis/angry mood Increase Seroquel at bedtime up to 300 mg for psychosis. 06/27/25: Report that he feel better, medication change helpful. Signed a 3 day notice and he wants to have some control over when he wants to leave this taking care of his belongings in the storage. He refused labs work, per nursing patient reports that he frequently unit more often which he refused the Flomax last night. He is irritable regarding the Suboxone this morning he has been taking the same scheduled time. Suboxone tends to scheduled at 8AM. Reports voices has been better, no command hallucination or telling him to cut himself. Patient observe self dialogue, making a couple phone calls. 06/28/25: Patient reports continued to improve in mental health, improve in depression and anxiety, improving in voices. No command hallucinations. He is less irritable, recognized that he was paranoid before thinking people were talking to him/following him. A good like to be discharged early on . Agree with the Seroquel increased at bedtime which is helpful for voices. Patient do not want to take the Flomax as he urinates so many times at night. Advised patient to take it when he needs to and FLU with OP provider. . Continue with antibiotic for abscess. Increase Seroquel up to 400mg at HS for psychosis. 06/29: Active on unit. social with peers. Patient reports feeling better today; pt stated, I'm not having any anxiety or depression. The voices are really low . Denies SI/HI/VH. He reports auditory hallucinations that are very low . Pt reports he plans on following up with outpatient providers. Patient educated on: diagnosis and medication risk/benefits Reason for continued inpatient stay Substantial Risk for: stable for discharge Time Spent With Patient Time: Total time managing care of this patient today _20___ minutes.
[2025-06-29 20:00] VITALS: BP 139/79; PULSE 69; RESP 18; TEMP 36.6; O2SAT 98
[2025-06-30 07:00] VITALS: BMI 19.2
[2025-06-30 07:42] VITALS: BP 132/73; PULSE 75; RESP 18; TEMP 36.8; O2SAT 98
[2025-06-30] MEDS: Aspirin Enteric Coated 81 MG TABLET.DR PO (08:24)
[2025-06-30] MEDS: Naloxone HCl Nasal TAKE HOME 4 MG SPRAY 8 MG NOSTRILALT (08:26)
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
== END 2025-06-30 09:18 | disposition home or self-care (01) | DRG 753 ==
PROVIDERS: Admitting Provider Psychiatry & Neurology Psychiatry; Responsible Provider Registered Nurse; Visit Provider Psychiatry & Neurology Psychiatry
DX: F31.9 Bipolar disorder, unspecified (principal); R45.851 Suicidal ideations; L03.116 Cellulitis of left lower limb; F14.10 Cocaine abuse, uncomplicated; F11.20 Opioid dependence, uncomplicated; I10 Essential (primary) hypertension; N40.0 Benign prostatic hyperplasia without lower urinary tract symptoms; J45.40 Moderate persistent asthma, uncomplicated; R45.850 Homicidal ideations; Z91.52 Personal history of nonsuicidal self-harm; Z59.02 Unsheltered homelessness; Z79.899 Other long term (current) drug therapy

== ENCOUNTER → 2025-06-24 16:53 | Outpatient (BNV) | payer MEDICAID, SELFPAY | PROVIDERS: Admitting Provider Psychiatry & Neurology Psychiatry; Visit Provider Physician Assistant | DX: Z00.8 Encounter for other general examination (principal); L03.90 Cellulitis, unspecified | CPT/HCPCS: 99222; 99231 ==

== ENCOUNTER → 2025-06-24 16:53 | Outpatient (BNV) | payer OTHER, SELFPAY | PROVIDERS: Admitting Provider Psychiatry & Neurology Psychiatry; Visit Provider Nurse Practitioner Psychiatric/Mental Health | DX: F31.9 Bipolar disorder, unspecified (principal); F19.94 Other psychoactive substance use, unspecified with psychoactive substance-induced mood disorder; F11.90 Opioid use, unspecified, uncomplicated; L03.90 Cellulitis, unspecified; F14.10 Cocaine abuse, uncomplicated | CPT/HCPCS: 99231; 99232 ==